=== PATIENT | female | born 1940 | race Hispanic/Latino ===

== ENCOUNTER 2016-06-04 19:33 | Emergency (ER) | payer MEDICARE ==
[2016-06-04] MEDS ORDERED: TORADOL IV ONE (19:57)
[2016-06-04] MEDS ORDERED: MORPHINE IV ONE (19:57)
[2016-06-04] MEDS ORDERED: NACL 0.9% 1000 ML 1,000 ML IV ONE (19:57)
[2016-06-04 20:46] LABS: Basophils % (Auto) 0.8 % (0.0-1.8); Eosinophils % (Auto) 1.2 % (0.0-4.3); Hemoglobin 13.7 gm/dl (10.1-14.3); Mean Corpuscular HGB Conc 33 % (30-34); Mean Corpuscular Hemoglobin 32 pg (28-32); Mean Corpuscular Volume 97 fl (79-97); Platelet Count 194 K/mm3 (140-440); Red Blood Count 4.25 M/mm3 (3.65-5.03); Red Cell Distribution Width 14.6 % (13.2-15.2)
[2016-06-04 21:03] LABS: INR 1.07 (0.87-1.13)
[2016-06-04 21:11] LABS: Alanine Aminotransferase 11 units/L (7-56); Albumin/Globulin Ratio 0.9 %; Alkaline Phosphatase 82 units/L (35-129); Anion Gap 15 mmol/L; BUN/Creatinine Ratio 22.22; Bilirubin,Total 0.7 mg/dL (0.1-1.2); Blood Urea Nitrogen 20 mg/dL (7-17); Calcium 9.2 mg/dL (8.4-10.2); Carbon Dioxide 26 mmol/L (22-30); Chloride 99.9 mmol/L (98-107); Creatine Kinase 58 units/L (30-135); Glucose 91 mg/dL (65-100); Potassium 4.5 mmol/L (3.6-5.0); Sodium 136 mmol/L (137-145); Total Protein 6.4 g/dL (6.3-8.2)
--- NOTE | 2016-06-04 22:21 | Cat Scan Report ---
FINAL REPORT PROCEDURE: CT LOWER EXTREMITY RT WO CON TECHNIQUE: Computerized axial tomography of the right hip was performed without contrast. HISTORY: hip pain COMPARISON: No prior studies are available for comparison. FINDINGS: There are severe osteoarthritic changes of the right hip joint. There is complete joint space loss superiorly. Subarticular cyst formation is noted of the femoral head and acetabulum. Osteophytes project off the femoral head. No acute fracture or joint dislocation is identified. IMPRESSION: No acute fracture is seen. Severe right hip joint osteoarthritis
--- NOTE | 2016-06-04 22:49 | Emergency Department Report ---
ED Extremity Problem HPI - General Chief complaint: Extremity Problem,Nontraumatic Stated complaint: RT LEG PAIN Time Seen by Provider: 06/04/16 19:41 Source: patient, EMS Mode of arrival: Stretcher Limitations: Physical Limitation - History of Present Illness MD Complaint: extremity pain, joint paint Onset/Timin -: Gradual, year(s) Location: right, lower extremity History of Same: Yes -: Yes arthralgia, No fever, No associated dyspnea, No associated chest pain Radiation: none Severity scale (0 -10): 7 Quality: aching, sharp Consistency: constant Improves with: nothing Worsens with: weight bearing, walking, exertion, palpation Associated Symptoms: arthralgias. denies: chest pain, shortness of breath, myalgias - Related Data Previous Rx's Medication Instructions Recorded Last Taken Type ALPRAZolam [Xanax TAB] 0.25 mg PO Q8H PRN #90 tablet 05/06/14 Unknown Rx Duloxetine HCl [DULoxetine] 30 mg PO DAILY #30 capsule. 05/06/14 Unknown Rx Metoprolol [Lopressor TAB] 12.5 mg PO BID #60 tablet 05/06/14 Unknown Rx Pantoprazole [Protonix TAB] 40 mg PO DAILY #30 tablet 05/06/14 Unknown Rx Prednisone [predniSONE] 2 mg PO QDAY #60 tablet 05/06/14 Unknown Rx Verapamil ER [Calan SR] 240 mg PO DAILY #30 tablet 05/06/14 Unknown Rx traMADol [Ultram 50 MG tab] 50 mg PO Q6H PRN #60 tablet 05/06/14 Unknown Rx Diclofenac Sodium 75 mg PO BID #30 tablet. 06/04/16 Unknown Rx HYDROcodone/ACETAMINOPHEN [Vicodin 1 each PO HS #15 tablet 06/04/16 Unknown Rx HP 10-300 mg TAB] Allergies Allergy/AdvReac Type Severity Reaction Status Date / Time codeine Allergy Nausea Verified 11/23/13 07:18 ED Review of Systems ROS: Stated complaint: RT LEG PAIN Other details as noted in HPI Constitutional: denies: chills, fever Eyes: denies: eye pain, eye discharge, vision change ENT: denies: ear pain, throat pain Respiratory: denies: cough, shortness of breath, wheezing Cardiovascular: denies: chest pain, palpitations Endocrine: no symptoms reported Gastrointestinal: denies: abdominal pain, nausea, diarrhea Genitourinary: denies: urgency, dysuria, discharge Musculoskeletal: denies: back pain, joint swelling, arthralgia Skin: denies: rash, lesions Neurological: denies: headache, weakness, paresthesias Psychiatric: denies: anxiety, depression Hematological/Lymphatic: denies: easy bleeding, easy bruising ED Past Medical Hx - Past Medical History Previous Medical History?: Yes Hx Hypertension: Yes Hx CVA: Yes Hx Arthritis: Yes (chronic lower extremity pain) Hx Psychiatric Treatment: Yes (depression, anxiety) Hx COPD: Yes Hx HIV: No Additional medical history: morbid obesity - Surgical History Past Surgical History?: Yes Additional Surgical History: bilateral knee replacement - Social History Smoking Status: Never Smoker Substance Use Type: None - Medications Home Medications: Home Medications Medication Instructions Recorded Confirmed Last Taken Type ALPRAZolam [Xanax TAB] 0.25 mg PO Q8H PRN #90 tablet 05/06/14 Unknown Rx Duloxetine HCl [DULoxetine] 30 mg PO DAILY #30 capsule. 05/06/14 Unknown Rx Metoprolol [Lopressor TAB] 12.5 mg PO BID #60 tablet 05/06/14 Unknown Rx Pantoprazole [Protonix TAB] 40 mg PO DAILY #30 tablet 05/06/14 Unknown Rx Prednisone [predniSONE] 2 mg PO QDAY #60 tablet 05/06/14 Unknown Rx Verapamil ER [Calan SR] 240 mg PO DAILY #30 tablet 05/06/14 Unknown Rx traMADol [Ultram 50 MG tab] 50 mg PO Q6H PRN #60 tablet 05/06/14 Unknown Rx Diclofenac Sodium 75 mg PO BID #30 tablet. 06/04/16 Unknown Rx HYDROcodone/ACETAMINOPHEN [Vicodin 1 each PO HS #15 tablet 06/04/16 Unknown Rx HP 10-300 mg TAB] ED Physical Exam - General Limitations: Physical Limitation General appearance: alert, in no apparent distress - Head Head exam: Present: atraumatic, normocephalic - Eye Eye exam: Present: normal appearance - ENT ENT exam: Present: mucous membranes moist - Neck Neck exam: Present: normal inspection - Respiratory Respiratory exam: Present: normal lung sounds bilaterally. Absent: respiratory distress - Cardiovascular Cardiovascular Exam: Present: regular rate, normal rhythm. Absent: systolic murmur, diastolic murmur, rubs, gallop - GI/Abdominal GI/Abdominal exam: Present: soft, normal bowel sounds - Extremities Exam Extremities exam: Present: normal inspection, tenderness (left hip / tender to palaption , decrease rom due to pain) - Back Exam Back exam: Present: normal inspection - Neurological Exam Neurological exam: Present: alert, oriented X3 - Psychiatric Psychiatric exam: Present: normal affect, normal mood - Skin Skin exam: Present: warm, dry, intact, normal color. Absent: rash ED Course Vital Signs 06/04/16 06/04/16 06/04/16 19:41 19:46 19:48 Temperature 98.1 F Pulse Rate 75 77 Respiratory 11 L 20 Rate Blood Pressure 144/121 144/121 177/121 Blood Pressure 177/121 [Right] O2 Sat by Pulse 97 96 Oximetry 06/04/16 06/04/16 06/04/16 19:50 19:51 19:56 Temperature 98 F Pulse Rate 72 82 70 Respiratory 15 18 Rate Blood Pressure 144/121 169/87 169/87 Blood Pressure [Right] O2 Sat by Pulse 98 98 96 Oximetry 06/04/16 06/04/16 06/04/16 20:00 20:02 22:31 Temperature Pulse Rate 70 Respiratory 10 L 20 20 Rate Blood Pressure 169/87 Blood Pressure [Right] O2 Sat by Pulse 96 96 Oximetry ED Medical Decision Making - Lab Data Result diagrams: 06/04/16 20:27 06/04/16 20:27 - Radiology Data Radiology results: report reviewed, image reviewed - Medical Decision Making Patient doing well, ct of right hip with sevre OA, no fractures, has appointment with ortho next week , neurovasc intact , able to bear weight with assistance . Offered admission but rather wants to go home, Critical care attestation.: If time is entered above; I have spent that time in minutes in the direct care of this critically ill patient, excluding procedure time. ED Disposition Clinical Impression: Morbid obesity with BMI of 45.0-49.9, adult Disposition: DISCHARGED TO HOME OR SELFCARE Is pt being admited?: No Does the pt Need Aspirin: No Condition: Good Instructions: Osteoarthritis (ED), Arthralgia (ED) Prescriptions: Diclofenac Sodium 75 mg PO BID #30 tablet. HYDROcodone/ACETAMINOPHEN [Vicodin HP 10-300 mg TAB] 1 each PO HS #15 tablet Referrals: PRIMARY CARE, [Primary Care Provider] - 3-5 Days Time of Disposition: 22:51
[2016-06-05 04:34] VITALS: BP 149/94
== END 2016-06-05 04:41 | disposition home or self-care (01) ==
LOC: ED 19:33
DX: E66.01 Morbid (severe) obesity due to excess calories (principal); I10 Essential (primary) hypertension; F32.9 Major depressive disorder, single episode, unspecified; F41.9 Anxiety disorder, unspecified; I63.9 Cerebral infarction, unspecified; J44.9 Chronic obstructive pulmonary disease, unspecified; Z68.42 Body mass index [BMI] 45.0-49.9, adult; Z88.5 Allergy status to narcotic agent
CPT/HCPCS: 36415; 73700; 80053; 82550; 85025; 85610; 96361; 96374; 96375; 99284; J1885; J2270; J7030

== ENCOUNTER 2016-10-11 21:13 | Emergency (ER) | payer MEDICARE ==
[2016-10-12] MEDS ORDERED: ANTIVERT PO ONE (01:11)
[2016-10-12] MEDS ORDERED: NACL 0.9% 1000 ML 1,000 ML IV ONE (01:13)
--- NOTE | 2016-10-12 01:17 | Emergency Department Report ---
HPI - General Chief Complaint: Altered Mental Status Time Seen by Provider: 10/12/16 01:10 - HPI HPI: Patient was brought to ED with dizziness, not feeling well, weakness and burning in sensation. Daughter stated patient of been sleeping more so today than usual. Patient also did not have an appetite today, therefore did not eat. Patient however denies chest pain, shortness of breath. Patient states that she feels like the room is spinning. She denies fever, alleviating or exacerbating factors. ED Past Medical Hx - Past Medical History Hx Hypertension: Yes Hx CVA: Yes Hx Arthritis: Yes Hx Psychiatric Treatment: Yes (depression, anxiety) Hx COPD: Yes Hx HIV: No Additional medical history: morbid obesity , atrial fibrillation - Surgical History Additional Surgical History: bilateral knee replacement - Social History Smoking Status: Unknown if ever smoked Substance Use Type: None - Medications Home Medications: Home Medications Medication Instructions Recorded Confirmed Last Taken Type Prednisone [predniSONE] 2 mg PO QDAY #60 tablet 05/06/14 07/05/16 2 Days Ago Rx traMADol [Ultram 50 MG tab] 50 mg PO Q6H PRN #60 tablet 05/06/14 07/05/16 2 Days Ago Rx Diclofenac Sodium 75 mg PO BID #30 tablet. 06/04/16 07/05/16 2 Days Ago Rx ALPRAZolam [Xanax TAB] 0.25 mg PO Q8H PRN #90 tablet 07/05/16 Unknown Rx Cefuroxime Axetil [Ceftin] 500 mg PO Q12H #14 tablet 07/05/16 Unknown Rx Duloxetine HCl [DULoxetine] 30 mg PO DAILY #30 capsule. 07/05/16 Unknown Rx HYDROcodone/ACETAMINOPHEN [Vicodin 1 each PO HS #15 tablet 07/05/16 Unknown Rx HP 10-300 mg TAB] Metoprolol [Lopressor TAB] 12.5 mg PO BID #60 tablet 07/05/16 Unknown Rx Pantoprazole [Protonix TAB] 40 mg PO DAILY #30 tablet 07/05/16 Unknown Rx Verapamil ER [Calan SR] 240 mg PO DAILY #30 tablet 07/05/16 Unknown Rx Cephalexin [Keflex] 500 mg PO BID #20 capsule 10/12/16 Unknown Rx ED Review of Systems ROS: Stated complaint: DIZZINESS/NAUSEA/EMESIS Other details as noted in HPI Comment: All other systems reviewed and negative Constitutional: no symptoms reported Neurological: weakness, confusion, other (dizziness) Physical Exam - Physical Exam Vital Signs: Vital Signs 10/11/16 22:16 Temperature 98.2 F Pulse Rate 55 L Respiratory 20 Rate Blood Pressure 110/89 O2 Sat by Pulse 98 Oximetry Physical Exam: - General Limitations: No Limitations General appearance: alert, in no apparent distress - Head Head exam: Present: atraumatic, normocephalic - Eye Eye exam: Present: normal appearance, EOMI. Absent: nystagmus - ENT ENT exam: Present: normal exam, normal orophraynx, mucous membranes moist, normal external ear exam - Neck Neck exam: Present: normal inspection, full ROM. Absent: tenderness, meningismus - Respiratory Respiratory exam: Present: normal lung sounds bilaterally. Absent: respiratory distress, wheezes, rales, rhonchi, stridor, chest wall tenderness, accessory muscle use, decreased breath sounds, prolonged expiratory - Cardiovascular Cardiovascular Exam: Present: regular rate, normal rhythm, normal heart sounds. Absent: bradycardia, tachycardia, irregular rhythm, systolic murmur, diastolic murmur, rubs, gallop - GI/Abdominal GI/Abdominal exam: Present: soft, normal bowel sounds. Absent: distended, tenderness, guarding, rebound, rigid, pulsatile mass - Rectal Rectal exam: Present: deferred - Extremities Exam Extremities exam: Present: - Back Exam Back exam: Present: normal inspection, full ROM. Absent: tenderness, CVA tenderness (R), CVA tenderness (L), muscle spasm, paraspinal tenderness, vertebral tenderness - Neurological Exam Neurological exam: Present: alert, oriented X3, normal gait, other (Extraocular movements intact. Tongue midline. No facial droop. Facial sensation intact to light touch in the V1, V2, V3 distribution bilaterally. 5 and 5 strength in 4 extremities.. Sensation is intact to light touch in 4 extremities.). Absent : motor sensory deficit - Psychiatric Psychiatric exam: Present: Normal affect - Skin Skin exam: Present: warm, dry, intact, normal color. Absent: rash ED Course Vital Signs 10/11/16 22:16 Temperature 98.2 F Pulse Rate 55 L Respiratory 20 Rate Blood Pressure 110/89 O2 Sat by Pulse 98 Oximetry ED Medical Decision Making - Lab Data Result diagrams: 10/12/16 02:30 10/12/16 02:30 Critical care attestation.: If time is entered above; I have spent that time in minutes in the direct care of this critically ill patient, excluding procedure time. ED Disposition Clinical Impression: UTI (urinary tract infection) Disposition: TO HOME OR SELFCARE Is pt being admited?: No Does the pt Need Aspirin: No Condition: Stable Prescriptions: Cephalexin [Keflex] 500 mg PO BID #20 capsule Referrals: PRIMARY CARE, [Primary Care Provider] - 3-5 Days
--- NOTE | 2016-10-12 02:06 | Cat Scan Report ---
FINAL REPORT PROCEDURE: CT HEAD/BRAIN WO CON TECHNIQUE: Computerized tomography of the head was performed without contrast material. HISTORY: ams COMPARISON: No prior studies are available for comparison. FINDINGS: Skull and scalp: Normal. Paranasal sinuses: Normal. Ventricles and subarachnoid spaces: Normal. Cerebrum: No evidence of hemorrhage, acute infarction or mass. Minimal atrophy and slight periventricular deep white matter changes.. Cerebellum and brainstem: No evidence of hemorrhage, acute infarction or mass. Vasculature: Normal. Comments: None. IMPRESSION: There is no evidence of an acute intracranial process. There is minimal atrophy and slight periventricular deep white matter changes.
[2016-10-12 02:47] LABS: Basophils % (Auto) 0.8 % (0.0-1.8); Eosinophils % (Auto) 0.6 % (0.0-4.3); Hematocrit 39.6 % (30.3-42.9); Hemoglobin 13.4 gm/dl (10.1-14.3); Mean Corpuscular HGB Conc 34 % (30-34); Mean Corpuscular Hemoglobin 32 pg (28-32); Mean Corpuscular Volume 94 fl (79-97); Platelet Count 218 K/mm3 (140-440); White Blood Count 10.1 K/mm3 (4.5-11.0)
[2016-10-12 02:58] LABS: Partial Thromboplastin Time < 20.0 Sec. (24.2-36.6)
[2016-10-12 03:02] LABS: INR 0.89 (0.87-1.13)
[2016-10-12 03:08] LABS: Alanine Aminotransferase 11 units/L (7-56); Albumin 3.7 g/dL (3.9-5); Alkaline Phosphatase 93 units/L (35-129); Anion Gap 22 mmol/L; Blood Urea Nitrogen 30 mg/dL (7-17); Calcium 9.4 mg/dL (8.4-10.2); Carbon Dioxide 20 mmol/L (22-30); Glucose 112 mg/dL (65-100); Potassium 4.6 mmol/L (3.6-5.0); Sodium 143 mmol/L (137-145); Total Protein 7.4 g/dL (6.3-8.2)
[2016-10-12] MEDS ORDERED: ROCEPHIN/NS 2 GM/100 ML 2 GM/100 ML BAG IV ONE (05:14)
[2016-10-12] MEDS ORDERED: NORCO 10/325 PO ONE ×2 (05:29→13:28)
[2016-10-12] MEDS ORDERED: MOTRIN PO ONE (05:29)
[2016-10-12 05:38] LABS: Bacteria,Urine 2+ /HPF (Negative); Bilirubin,Urine NEG (Negative); Blood,Urine SM (Negative); Ketones,Urine TR mg/dL (Negative); Leukocyte Esterase,Urine LG (Negative); Mucus,Urine 2+ /HPF; Nitrite,Urine POS (Negative); Urobilinogen,Urine < 2.0 mg/dL (<2.0)
[2016-10-12 05:58] LABS: WBC,Urine > 182.0 /HPF (0.0-6.0)
--- NOTE | 2016-10-12 07:22 | XRay Report ---
AP CHEST: HISTORY: chest pain Mild cardiomegaly is unchanged since 05/02/14. The pulmonary vascularity is within normal limits. The lungs are clear. No evidence for pneumonia, CHF or pneumothorax. The bony structures are grossly intact. IMPRESSION: Mild cardiomegaly. Lungs clear.
[2016-10-12] MEDS ORDERED: NORCO 10/325 ONE (13:16)
[2016-10-12 13:42] VITALS: BP 168/89
== END 2016-10-12 13:43 | disposition home or self-care (01) ==
LOC: ED 21:13
DX: N39.0 Urinary tract infection, site not specified (principal); I10 Essential (primary) hypertension; F32.9 Major depressive disorder, single episode, unspecified; F41.9 Anxiety disorder, unspecified; J44.9 Chronic obstructive pulmonary disease, unspecified; E66.01 Morbid (severe) obesity due to excess calories; Z86.73 Personal history of transient ischemic attack (TIA), and cerebral infarction without residual deficits
CPT/HCPCS: 36415; 51702; 70450; 71010; 80053; 81001; 83880; 84484; 85025; 85610; 85730; 96361; 96365; 99284; J0696; J7030

== ENCOUNTER 2018-03-06 23:20 | Inpatient (IN) | payer MEDICARE ==
[2018-03-06] MEDS ORDERED: NACL 0.9% 1000 ML 1,000 ML IV ONE (23:32)
[2018-03-06] MEDS ORDERED: ANTIVERT PO ONE (23:32)
[2018-03-06] MEDS ORDERED: PEPCID IV ONE (23:32)
[2018-03-06] MEDS ORDERED: ZOFRAN IV ONE (23:32)
[2018-03-07 00:16] LABS: Basophils # (Auto) 0.1 K/mm3 (0.0-0.1); Basophils % (Auto) 0.7 % (0.0-1.8); Eosinophils # (Auto) 0.1 K/mm3 (0.0-0.4); Eosinophils % (Auto) 1.2 % (0.0-4.3); Hematocrit 37.7 % (30.3-42.9); Hemoglobin 12.6 gm/dl (10.1-14.3); Lymphocytes # (Auto) 1.4 K/mm3 (1.2-5.4); Lymphocytes % (Auto) 11.8 % (13.4-35.0); Mean Corpuscular HGB Conc 33 % (30-34); Mean Corpuscular Volume 98 fl (79-97); Monocytes # (Auto) 0.9 K/mm3 (0.0-0.8); Monocytes % (Auto) 7.3 % (0.0-7.3); Platelet Count 271 K/mm3 (140-440); Red Blood Count 3.87 M/mm3 (3.65-5.03); Red Cell Distribution Width 14.5 % (13.2-15.2)
--- NOTE | 2018-03-07 01:06 | Cat Scan Report ---
FINAL REPORT EXAM: CT HEAD/BRAIN WO CON HISTORY: dizziness and headache COMPARISON: CT of the head from September 2016. TECHNIQUE: Axial images obtained skull base through vertex. FINDINGS: No acute intracranial hemorrhage, midline shift or pathologic extra axial fluid collection. Ventricle s and cisterns are normal in size and configuration for the patient's age. Stable mild chronic small vessel ischemic disease. Jeffery-white differentiation preserved. Calvarium grossly intact. Ocular globe s are grossly unremarkable. Visualized para-nasal sinuses and mastoid air cells are clear. Mild calci fied plaque along the carotid siphons. IMPRESSION: No grossly acute intracranial abnormality. Stable mild chronic small vessel ischemic disease.
--- NOTE | 2018-03-07 01:38 | Emergency Department Report ---
ED General Adult HPI - General Chief complaint: Weakness Stated complaint: DIZZINESS/HEADACHE Time Seen by Provider: 03/06/18 23:28 Source: patient Mode of arrival: Stretcher Limitations: Physical Limitation - History of Present Illness Initial comments: Patient is a 77-year-old female who is presenting with 1 week of progressively worsening headache with dizziness. Patient states that when she opens her eyes she is very dizzy and the dizziness is causing disorientation. Patient states symptoms are associated with nausea and some epigastric discomfort. Patient denies any fever or neck stiffness off congestion at this time. Patient states has been no dysuria or urinary frequency. Patient was recently hospitalized for leg swelling and was found that the patient has cellulitis but also had a intermediate risk for PE according to her VQ scan. Patient has a history of atrial fibrillation and was placed on Eliquis Severity scale (0 -10): 7 Quality: aching Associated Symptoms: malaise, weakness. denies: chest pain, cough, diaphoresis, shortness of breath, syncope - Related Data Home Medications Medication Instructions Recorded Confirmed Last Taken AtorvaSTATin [Lipitor] 20 mg PO QHS 03/07/18 03/07/18 Unknown Baclofen [Lioresal] 10 mg PO BID 03/07/18 03/07/18 Unknown Ferrous Sulfate [Feosol 325 MG tab] 325 mg PO QDAY 03/07/18 03/07/18 Unknown traZODone [Desyrel] 100 mg PO QHS 03/07/18 03/07/18 Unknown Previous Rx's Medication Instructions Recorded Last Taken Type Apixaban [Eliquis] 5 mg PO Q12HR #60 tablet 02/24/18 Unknown Rx Verapamil [Calan] 80 mg PO Q8HR tablet 03/14/18 Unknown Rx clonazePAM [KlonoPIN] 1 mg PO BID PRN #12 tablet 03/14/18 Unknown Rx diphenhydrAMINE [Benadryl CAP] 25 mg PO Q6H PRN capsule 03/14/18 Unknown Rx oxyCODONE /ACETAMINOPHEN [Percocet 2 tab PO Q6H PRN #12 tablet 03/14/18 Unknown Rx 5/325 mg] Allergies Allergy/AdvReac Type Severity Reaction Status Date / Time codeine Allergy Nausea Verified 11/23/13 07:18 ED Review of Systems ROS: Stated complaint: DIZZINESS/HEADACHE Other details as noted in HPI Comment: All other systems reviewed and negative ED Past Medical Hx - Past Medical History Previous Medical History?: Yes Hx Hypertension: Yes Hx CVA: Yes Hx Congestive Heart Failure: Yes Hx Arthritis: Yes Hx Psychiatric Treatment: Yes (depression, anxiety) Hx COPD: Yes Additional medical history: morbid obesity , atrial fibrillation - Surgical History Past Surgical History?: Yes Additional Surgical History: bilateral knee replacement - Social History Smoking Status: Never Smoker Substance Use Type: Prescribed - Medications Home Medications: Home Medications Medication Instructions Recorded Confirmed Last Taken Type Apixaban [Eliquis] 5 mg PO Q12HR #60 tablet 02/24/18 03/07/18 Unknown Rx AtorvaSTATin [Lipitor] 20 mg PO QHS 03/07/18 03/07/18 Unknown History Baclofen [Lioresal] 10 mg PO BID 03/07/18 03/07/18 Unknown History Ferrous Sulfate [Feosol 325 MG tab] 325 mg PO QDAY 03/07/18 03/07/18 Unknown History traZODone [Desyrel] 100 mg PO QHS 03/07/18 03/07/18 Unknown History Verapamil [Calan] 80 mg PO Q8HR tablet 03/14/18 Unknown Rx clonazePAM [KlonoPIN] 1 mg PO BID PRN #12 tablet 03/14/18 Unknown Rx diphenhydrAMINE [Benadryl CAP] 25 mg PO Q6H PRN capsule 03/14/18 Unknown Rx oxyCODONE /ACETAMINOPHEN [Percocet 2 tab PO Q6H PRN #12 tablet 03/14/18 Unknown Rx 5/325 mg] ED Physical Exam - General Limitations: Physical Limitation General appearance: alert, in distress, other (she states she is unable to open her eyes without her symptoms worsening) - Head Head exam: Present: atraumatic, normocephalic - Eye Eye exam: Present: normal appearance - ENT ENT exam: Present: mucous membranes moist - Neck Neck exam: Present: normal inspection - Respiratory Respiratory exam: Present: normal lung sounds bilaterally. Absent: respiratory distress, wheezes, rales, rhonchi - Cardiovascular Cardiovascular Exam: Present: regular rate, normal rhythm. Absent: systolic murmur, diastolic murmur, rubs, gallop - GI/Abdominal GI/Abdominal exam: Present: soft, normal bowel sounds. Absent: distended, tenderness (patient states there is no reproducible epigastric discomfort however she is holding her abdomen stating that she is in pain), guarding, rebound, rigid - Extremities Exam Extremities exam: Present: normal inspection - Back Exam Back exam: Present: normal inspection - Neurological Exam Neurological exam: Present: alert, oriented X3 - Psychiatric Psychiatric exam: Present: normal affect, normal mood - Skin Skin exam: Present: warm, dry, intact, normal color. Absent: rash ED Course Vital Signs 03/07/18 03/07/18 03/07/18 00:18 01:46 02:30 Temperature 97.7 F Pulse Rate 77 Respiratory 12 Rate Blood Pressure 183/112 178/109 183/112 Blood Pressure 183/112 [Left] O2 Sat by Pulse 98 97 94 Oximetry 03/07/18 03/07/18 03/07/18 03:52 04:00 04:05 Temperature Pulse Rate 90 86 Respiratory 12 Rate Blood Pressure 170/76 200/108 200/108 Blood Pressure [Left] O2 Sat by Pulse 99 97 Oximetry 03/07/18 03/07/18 03/07/18 04:16 04:33 04:46 Temperature Pulse Rate 105 H 105 H 97 H Respiratory 15 17 Rate Blood Pressure 199/114 184/96 191/102 Blood Pressure [Left] O2 Sat by Pulse 99 98 Oximetry 03/07/18 03/07/18 03/07/18 05:00 05:16 05:18 Temperature Pulse Rate 108 H 109 H Respiratory 15 20 Rate Blood Pressure 151/96 150/72 Blood Pressure [Left] O2 Sat by Pulse 98 99 Oximetry 03/07/18 03/07/18 03/07/18 05:46 05:48 06:00 Temperature Pulse Rate 89 95 H Respiratory 12 18 Rate Blood Pressure 136/72 129/60 Blood Pressure [Left] O2 Sat by Pulse 95 95 Oximetry 03/07/18 03/07/18 03/07/18 06:30 07:00 07:10 Temperature Pulse Rate 90 94 H 92 H Respiratory 11 L 11 L 13 Rate Blood Pressure 125/73 135/63 150/85 Blood Pressure [Left] O2 Sat by Pulse 96 Oximetry 03/07/18 03/07/18 03/07/18 08:47 09:23 10:00 Temperature 97.8 F Pulse Rate 115 H Respiratory 18 16 Rate Blood Pressure Blood Pressure 155/92 [Left] O2 Sat by Pulse 97 Oximetry - Reevaluation(s) Reevaluation #2: 03/07/18 01:[address] of the head without contrast shows no acute process. Patient has some chronic microvascular changes. Patient was difficult stick for IV was established. Patient given meds at this time. Patient will have laboratory st udies reviewed. Hopefully the patient's renal function will be within normal limits as patient needs a CT angiogram of the head and neck to rule out a posterior CVA. Patient also have a CT of the abdomen and pelvis ordered assist the patient now is complaining of some epigastric discomfort as well. Patient will need a urinary straight cath to collect her urine. Patient will be signed out to Dr. Gutierrez for the continuation of the patient's medical care. ED Medical Decision Making - Lab Data Result diagrams: 03/14/18 04:59 03/14/18 04:59 Critical care attestation.: If time is entered above; I have spent that time in minutes in the direct care of this critically ill patient, excluding procedure time. ED Disposition Clinical Impression: Headache, Vertigo Disposition: [id number] OP ADMIT IP TO THIS HOSP Is pt being admited?: Yes Condition: Stable
[2018-03-07 02:04] LABS: Bilirubin,Urine NEG (Negative); Blood,Urine NEG (Negative); Color,Urine Yellow (Yellow); Hyaline Casts,Urine 1 /LPF; Mucus,Urine FEW /HPF
[2018-03-07] MEDS ORDERED: APRESOLINE IV ONE (04:04)
--- NOTE | 2018-03-07 04:06 | Cat Scan Report ---
FINAL REPORT PROCEDURE: CT ABDOMEN PELVIS W CON TECHNIQUE: Computerized axial tomography of the abdomen and pelvis was performed after the IV inject ion of iodinated nonionic contrast. HISTORY: upper abd pain COMPARISON: No prior studies are available for comparison. FINDINGS: Visualized lower thorax: No significant abnormality. Liver: Normal size and attenuation. Spleen: Normal size and attenuation. Gallbladder and biliary system: Normal. Pancreas: Normal. Adrenals: Normal. Kidneys: Normal. GI tract: There are diverticula of the sigmoid left colon. There is no diverticulitis, colitis, obstr uction or mass. The appendix is normal.. Lymph nodes and mesentery: Normal. Vasculature: Normal. Bladder: Normal. Reproductive organs: Uterus is unremarkable.. Peritoneum: There is no ascites or free air, abscess or adenopathy.. Musculoskeletal structures: No significant abnormality. Other: None. IMPRESSION: There are diverticula of the sigmoid left colon. There is no diverticulitis, colitis, obstruction or mass. The appendix is normal.. There is no ascites or free air, abscess or adenopathy..
[2018-03-07] MEDS ORDERED: APRESOLINE ONE (04:08)
--- NOTE | 2018-03-07 04:10 | Cat Scan Report ---
FINAL REPORT PROCEDURE: CT ANGIO HEAD TECHNIQUE: Computerized tomographic angiography of the head was performed after the IV injection of iodinated nonionic contrast including image processing. The image data was postprocessed using 2-dime nsional multiplanar reformatted (MPR) and 3-dimensional (MIP and/or volume rendered) techniques. HISTORY: vertigo symptoms COMPARISON: CT of the head dated 03/06/2018 FINDINGS: Cerebrum: No evidence of hemorrhage, acute ischemia or mass. Cerebellum: No evidence of hemorrhage, acute ischemia or mass. Subarachnoid spaces and ventricles: Normal. Intracranial vessels: Carotid siphon: Normal. Anterior cerebral: Normal. Middle cerebral: Normal. Posterior cerebral:There is origin of the left posterior cerebral artery which is a normal vari ation. Vertebral arteries including basilar: Normal. Aneurysms: None. Dural sinuses: Normal. IMPRESSION: There is no intracranial arterial stenosis, occlusion or aneurysm.
--- NOTE | 2018-03-07 04:12 | Cat Scan Report ---
FINAL REPORT PROCEDURE: CT ANGIO NECK TECHNIQUE: Computerized tomographic angiography of the neck was performed after the IV injection of iodinated nonionic contrast including image processing. The image data was postprocessed using 2-dime nsional multiplanar reformatted (MPR) and 3-dimensional (MIP and/or volume rendered) techniques. HISTORY: vertigo symptoms COMPARISON: No prior studies are available for comparison. Note: Assessment of carotid artery stenosis is based on measurement of the distal internal carotid a rtery diameter as the denominator for stenosis calculations and the [place] Symptomatic Caroti d Endarterectomy Trial (NASCET) stenosis criteria . CPT 3100F FINDINGS: Sinuses: Normal . Non vascular cervical structures: No significant abnormality . Aortic arch: Normal . Right carotid artery: There is calcified plaque at the right carotid bulb without stenosis.. Left carotid artery: There is calcified plaque at the left carotid bulb without stenosis.. Vertebral arteries: The right vertebral artery is dominant. There is no occlusion.. IMPRESSION: There is no arterial stenosis or occlusion or dissection. The there is calcified plaque at the caroti d bulbs bilaterally.
[2018-03-07] MEDS ORDERED: NITROSTAT SL ONE ×2 (04:31→04:34)
[2018-03-07] MEDS ORDERED: MORPHINE IV ONE (04:56)
[2018-03-07] MEDS ORDERED: ZOFRAN IV ONE (04:56)
--- NOTE | 2018-03-07 05:22 | XRay Report ---
FINAL REPORT PROCEDURE: XR CHEST 1V AP TECHNIQUE: Chest radiograph anteroposterior view. CPT 28008 HISTORY: CP COMPARISON: No prior studies are available for comparison. FINDINGS: Heart: Heart is enlarged Mediastinum/Vessels: Normal. Lungs/Pleural space: Lungs are expanded. There are no infiltrates, effusions or pneumothoraces.. Bony thorax: No acute osseous abnormality. Life support devices: None. IMPRESSION: Heart is enlarged Lungs are expanded. There are no infiltrates, effusions or pneumothoraces.. .
--- NOTE | 2018-03-07 05:58 | Emergency Department Report ---
Blank Doc - Documentation Documentation: I was asked by Dr. Trotter to follow-up on the CT angiography of the head and n sharon, as well as CT of the abdomen and pelvis, for this patient and then assist with the disposition. The patient was originally here for headache and dizziness. When she got back from the CT of the head, she started complaining of some abdominal pain. CT angiography of the head and neck did not show any thrombus, occlusion or any other acute process. CT of the abdomen and pelvis shows some diverticula but no signs of any diverticulitis. As soon as the patient returned from the CT angiography, she began complaining of chest pain. An EKG was done that shows the patient in A. fib. No signs of ST elevation [place]. First troponin was negative. Serial troponins ordered. The patient will be admitted to the hospital for further evaluation and treatment and was accepted for admission by the hospitalist, Dr. Pineda.
[2018-03-07] MEDS ORDERED: ZOFRAN IV PRN (06:38)
[2018-03-07] MEDS ORDERED: MORPHINE IV PRN (06:43)
--- NOTE | 2018-03-07 08:01 | Vascular Lab Report ---
FINAL REPORT PROCEDURE: VL CAROTID DUPLEX BILAT TECHNIQUE: Duplex Doppler ultrasound of the common, internal and external carotid arteries and the v ertebral arteries was performed bilaterally. Jeffery scale imaging, velocity spectral waveform analysis, and color flow Doppler were employed. CPT 16849 HISTORY: DIZZYNESS WITH PLAQUE IN THE CAROTIDS ON CT NECK COMPARISON: No prior studies are available for comparison. FINDINGS: Note: Measurement of carotid stenosis is based on flow velocity values that correlate with the [place] Symptomatic Carotid Endarterectomy Trial (NASCET) based stenosis criteria using the internal carotid artery diameter as the denominator for stenosis calculation. CPT 3100F RIGHT carotid artery: Velocities: ICA PSV: 46.6 cm/sec ICA End diastolic: 16 cm/sec CCA PSV: 66.3 cm/sec IC/CC ratio: 0.8 1 Plaque/color flow: Mild heterogeneous plaque without significant spectral broadening or abnormal colo r flow. RIGHT vertebral artery: Not identified. LEFT carotid artery: Velocities: ICA PSV: 95.8 cm/sec ICA End diastolic: 31 cm/sec CCA PSV: 72.7 cm/sec IC/CC ratio: 1.3 Plaque/color flow: Mild heterogeneous plaque without significant spectral broadening or abnormal colo r flow. LEFT vertebral artery: Antegrade systolic and diastolic flow. IMPRESSION: 1. RIGHT carotid: No hemodynamically significant (less than 50 percent) internal carotid artery steno sis. 2. LEFT carotid: No hemodynamically significant (less than 50 percent) internal carotid artery stenos is. 3. Vertebral arteries: The right vertebral artery could not be identified. Left vertebral artery is p atent and demonstrates normal antegrade blood flow.
--- NOTE | 2018-03-07 08:23 | History and Physical Report ---
CHIEF COMPLAINT: Chest pain. OTHER COMPLAINTS: Include dizziness, vertigo, and shortness of breath. HISTORY OF PRESENT ILLNESS: The patient is a 77-year-old female presenting with 1 week history of dizziness and headache. The patient is also complaining of vertigo and said that it is associated with nausea and some epigastric abdominal pain. There is no history of fever or chills. Also, there is no history of ringing in the ear and while in the Emergency Room, the patient was investigated for dizziness, vertigo, and then started having chest pain, which is located in the precordial area. PAST MEDICAL HISTORY: Pertinent for hypertension, cerebrovascular accident, congestive heart failure, arthritis, depression, COPD, morbid obesity, and atrial fibrillation on Eliquis. PAST SURGICAL HISTORY: Pertinent for bilateral knee replacement. FAMILY HISTORY: Noncontributory. SOCIAL HISTORY: The patient does not smoke, does not drink alcohol, and does not use illicit drug. MEDICATIONS: The patient is on prednisone 2 mg by mouth daily, tramadol 50 mg by mouth every 6 hours for pain, diclofenac sodium 75 mg by mouth twice daily, Xanax 0.25 mg by mouth every 8 hours, Ceftin 500 mg by mouth every 12 hours, duloxetine 30 mg by mouth daily, Vicodin 10/300 mg 1 by mouth every night as needed for pain, metoprolol (Lopressor) 12.5 mg by mouth twice daily, pantoprazole (Protonix) 40 mg by mouth daily, verapamil 240 mg by mouth daily, Keflex 500 mg by mouth twice daily, Tylenol Arthritis 650 mg by mouth every 6 hours, Vibramycin 100 mg by mouth every 12 hours, nystatin 15 gram topical b.i.d., apixaban (Eliquis) 5 mg by mouth every 12 hours, Keflex 500 mg by mouth every 12 hours. ALLERGIES: THE PATIENT IS ALLERGIC TO CODEINE. REVIEW OF SYSTEMS: CONSTITUTIONAL: There is no fever, no chills, no diaphoresis. HEENT: There is headache, but no sore throat. CARDIOVASCULAR SYSTEM: Chest pain is present. No orthopnea. RESPIRATORY SYSTEM: Shortness of breath is noted. No cough. GASTROINTESTINAL SYSTEM: There is nausea, but no vomiting. Abdominal pain is present. No diarrhea or constipation. NEUROLOGICAL SYSTEM: Dizziness and vertigo present. No altered mental status. MUSCULOSKELETAL SYSTEM: There is no joint pain or swelling. DERMATOLOGICAL SYSTEM: There is no skin rash or itching. GENITOURINARY SYSTEM: There is no dysuria, hematuria or flank pain. Rest of system review is normal. PHYSICAL EXAMINATION: GENERAL: At the time of exam, the patient was found to be lethargic, arousable, and not in active disease. VITAL SIGNS: At the initial time of presentation show temperature of 97.7 degrees Fahrenheit, pulse of 77, respirations 12, blood pressure 183/112, O2 sat of 98% on room air. HEENT: Showed pupils to be equal, round, reactive to light and accommodation. Extraocular muscles are intact. NECK: Supple with no JVD or carotid bruit. CARDIOVASCULAR SYSTEM: Showed normal first and second heart sounds with no gallops or murmur. RESPIRATORY SYSTEM: Show good air entry on both sides of the lungs with no abnormal breath sounds. GASTROINTESTINAL SYSTEM: Show abdomen to be full, soft, nontender with no organomegaly or rigidity. NEUROLOGICAL: Shows no focal deficit. MUSCULOSKELETAL SYSTEM: Show no joint swelling or tenderness. DERMATOLOGICAL SYSTEM: Showing no skin rash. GENITOURINARY SYSTEM: Showing no costovertebral angle tenderness. PERTINENT IMAGING STUDIES: The patient had CT of the head without contrast done that shows no acute intracranial lesion. The patient had CT angiogram of the neck done that shows right carotid plaque. Also, the patient had CT angiogram of the head done and this shows no intracranial arterial stenosis, occlusion or aneurysm. The patient has chest x-ray also done that shows enlarged heart with no other abnormality. LAB RESULTS: The patient's CBC showed elevated white count of 11,700 with normal hemoglobin and normal hematocrit with CBC differential showing elevated segmented neutrophil of 79%. The patient's chemistry showed normal sodium with elevated potassium level of 5.4, elevated chloride level of 108 and low CO2 of 20. The patient's BUN and creatinine showed elevated BUN of 49 with high creatinine of 1.5. The patient's troponin level came back unremarkable. Urinalysis was unremarkable. DIAGNOSES: 1. Chest pain. 2. Dizziness. 3. Hyperkalemia. 4. Acute kidney injury. PLAN: 1. The patient will be admitted to telemetry. 2. The patient will have cardiac enzymes involving troponin, total CK, and CK-MB. Check every 6 hours x 2 more level. 3. The patient will have Nephrology consult with Dr. Keating for acute kidney injury. 4. The patient will be on nitro paste 1 inch to anterior chest wall q.i.d. and will be on sublingual nitroglycerin 0.4 mg every 5 minutes for breakthrough chest pain. 5. The patient will be on IV morphine 2 mg every 3 hours as needed for pain and IV Zofran 4 mg every 8 hours for nausea and vomiting. 6. The patient will be n.p.o. for Lexiscan stress test this morning. 7. The patient will have bilateral carotid Doppler done this morning because of dizziness and finding of plaque on the right carotid in the CT angio of the neck. 8. The patient will be on Tylenol 650 mg by mouth every 4 hours for fever and headache and IV Zofran 4 mg every 8 hours for nausea and vomiting. 9. The patient will be on oxygen by nasal cannula at 2 liters per minute. JOB# [id number] OCN/NTS
[2018-03-07] MEDS ORDERED: LEXISCAN IV ONE ×2 (10:54→10:56)
[2018-03-07] MEDS ORDERED: HumuLIN R IV ONE ×2 (11:35→16:00)
[2018-03-07] MEDS ORDERED: D50W (25GM) Vial IV ONE ×2 (11:35→16:00)
--- NOTE | 2018-03-07 11:42 | Consultation ---
History of Present Illness - Reason for Consult Consult date: 03/07/18 acute renal failure - History of Present Illness patient is a 77 year old female came to the ED for worsening dizziness and weakness, she is a poor historian, no family at bedside, history obtained from chart. CTA head and neck, CT head and carotid Doppler all negative. she was noted to have worsening kidney function since last admission when she was admitted for cellulitits, renal consult was requested for LUIS ENRIQUE Medications and Allergies Allergies Allergy/AdvReac Type Severity Reaction Status Date / Time codeine Allergy Nausea Verified 11/23/13 07:18 Home Medications Medication Instructions Recorded Confirmed Last Taken Type Diclofenac Sodium 75 mg PO BID #30 tablet. 06/04/16 03/07/18 2 Days Ago Rx ~07/03/16 Verapamil ER [Calan SR] 240 mg PO DAILY #30 tablet 07/05/16 03/07/18 Unknown Rx Apixaban [Eliquis] 5 mg PO Q12HR #60 tablet 02/24/18 03/07/18 Unknown Rx AtorvaSTATin [Lipitor] 20 mg PO QHS 03/07/18 03/07/18 Unknown History Baclofen [Lioresal] 10 mg PO BID 03/07/18 03/07/18 Unknown History Ferrous Sulfate [Feosol] 325 mg PO QDAY 03/07/18 03/07/18 Unknown History traZODone [Desyrel] 100 mg PO QHS 03/07/18 03/07/18 Unknown History Active Meds: Active Medications Acetaminophen (Tylenol) 650 mg PO Q4H PRN PRN Reason: Headache Aspirin (Aspirin) 325 mg PO QDAY [facility] Sodium Bicarbonate 75 meq/ (Sodium Chloride) 1,075 mls @ 75 mls/hr IV DIRECT STACI Morphine Sulfate (Morphine) 2 mg IV Q3H PRN PRN Reason: Pain, Moderate (4-6) Nitroglycerin (Nitro-Bid 2%) 1 inch TP QIDNTG STACI; Protocol Ondansetron HCl (Zofran) 4 mg IV Q8H PRN PRN Reason: Nausea And Vomiting Review of Systems ROS unobtainable: due to mental status Exam - Vital Signs Vital signs: Vital Signs Temp Pulse Resp BP Pulse Ox 97.7 F 77 12 183/112 98 03/07/18 00:18 03/07/18 00:18 03/07/18 00:18 03/07/18 00:18 03/07/18 00:18 - General Appearance General appearance: well-developed, well-nourished EENT: ATNC, PERRL, mucous membranes moist Neck: Present: neck supple Respiratory: Clear to Ascultation Heart: regular, S1S2 Gastrointestinal: Present: normoactive bowel sounds. Absent: tenderness, diste nded Integumentary: no rash, warm and dry Neurologic: no focal deficit Musculoskeletal: Present: other (trace pitting edema in BLE) Psychiatric: cooperative Results - Lab Results 03/06/18 23:59 03/06/18 23:59 Most recent lab results Calcium 9.0 mg/dL (8.4-10.2) 03/06/18 23:59 Assessment and Plan Dizziness altered mental status acute renal failure, likely prerenal azotemia hyperkalemia - will start IVF 1/2 NS with NaHCO3 75 meq @ 75 cc/h, CXR negative for pulm edema - IV insulin and D50W ordered for hyperkalemia - renal US ordered - UA and urine lytes, protein and eos ordered - renally dose meds - strict I&O - daily weight Guy Cerna MD [phone]
[2018-03-07] MEDS ORDERED: NACL 0.45% 1000 ML 1,000 ML with SODIUM BICARBONATE 75 MEQ IV SCH (12:00)
--- NOTE | 2018-03-07 12:28 | Consultation ---
History of Present Illness Consult date: 03/07/18 Consult reason: atrial fibrillation History of present illness: The patient is a 77-year-old woman with permanent atrial fibrillation, on rate control strategy and oral anticoagulation with Eliquis. She was recently in this hospital with a transient mild lower extremity edema, and echocardiogram demonstrated mild left ventricle dysfunction with ejection fraction 40-45%. It is also notable, she has had previous extensive cardiac ischemic workup including a cardiac catheterization 4 years ago, that reported normal coronary arteries. She is admitted at this time with transient shortness of breath, cardiac consultation was requested for rapid atrial fibrillation. EKG is atrial fibrillation, somewhat low voltage QRS, nonspecific ST and T-wave changes. No acute ischemia or infarction on the EKG. The internal medicine service consult ordered a thallium stress test which will be reviewed. Past History Past Medical History: atrial fib, hypertension Medications and Allergies Allergies Allergy/AdvReac Type Severity Reaction Status Date / Time codeine Allergy Nausea Verified 11/23/13 07:18 Home Medications Medication Instructions Recorded Confirmed Last Taken Type Diclofenac Sodium 75 mg PO BID #30 tablet. 06/04/16 03/07/18 2 Days Ago Rx ~07/03/16 Verapamil ER [Calan SR] 240 mg PO DAILY #30 tablet 07/05/16 03/07/18 Unknown Rx Apixaban [Eliquis] 5 mg PO Q12HR #60 tablet 02/24/18 03/07/18 Unknown Rx AtorvaSTATin [Lipitor] 20 mg PO QHS 03/07/18 03/07/18 Unknown History Baclofen [Lioresal] 10 mg PO BID 03/07/18 03/07/18 Unknown History Ferrous Sulfate [Feosol] 325 mg PO QDAY 03/07/18 03/07/18 Unknown History traZODone [Desyrel] 100 mg PO QHS 03/07/18 03/07/18 Unknown History Active Meds: Active Medications Acetaminophen (Tylenol) 650 mg PO Q4H PRN PRN Reason: Headache Aspirin (Aspirin) 325 mg PO QDAY ON LICENSE OF [facility] Sodium Bicarbonate 75 meq/ (Sodium Chloride) 1,075 mls @ 75 mls/hr IV DIRECT STACI Morphine Sulfate (Morphine) 2 mg IV Q3H PRN PRN Reason: Pain, Moderate (4-6) Nitroglycerin (Nitro-Bid 2%) 1 inch TP QIDNTG ON LICENSE OF [facility]; Protocol Ondansetron HCl (Zofran) 4 mg IV Q8H PRN PRN Reason: Nausea And Vomiting Review of Systems Cardiovascular: palpitations, rapid/irregular heart beat, edema, shortness of b reath, no chest pain, no orthopnea, no syncope, no lightheadedness Physical Examination Vital Signs Temp Pulse Resp BP Pulse Ox 97.7 F 77 12 183/112 98 03/07/18 00:18 03/07/18 00:18 03/07/18 00:18 03/07/18 00:18 03/07/18 00:18 General appearance: no acute distress HEENT: Positive: PERRL Cardiac: Positive: irregularly irregular Lungs: Positive: Decreased Breath Sounds Neuro: Positive: Grossly Intact Abdomen: Positive: Soft Female genitourinary: deferred Skin: Positive: Clear Extremities: Absent: edema Results 03/06/18 23:59 03/06/18 23:59 CBC 03/06/18 Range/Units 23:59 WBC 11.7 H (4.5-11.0) K/mm3 RBC 3.87 (3.65-5.03) M/mm3 Hgb 12.6 (10.1-14.3) gm/dl Hct 37.7 (30.3-42.9) % Plt Count 271 (140-440) K/mm3 Lymph # 1.4 (1.2-5.4) K/mm3 [place] # 0.9 H (0.0-0.8) K/mm3 Eos # 0.1 (0.0-0.4) K/mm3 Baso # 0.1 (0.0-0.1) K/mm3 Comprehensive Metabolic Panel 03/06/18 Range/Units 23:59 Sodium 144 (137-145) mmol/L Potassium 5.4 H (3.6-5.0) mmol/L Chloride 108.8 H (98-107) mmol/L Carbon Dioxide 20 L (22-30) mmol/L BUN 49 H (7-17) mg/dL Creatinine 1.5 H (0.7-1.2) mg/dL Glucose 104 H (65-100) mg/dL Calcium 9.0 (8.4-10.2) mg/dL EKG interpretations - Telemetry EKG Rhythm: Atrial Fibrillation Assessment and Plan - Patient Problems (1) Atrial fibrillation Current Visit: No Status: Acute Qualifiers: Atrial fibrillation type: persistent Qualified Code(s): I48.1 - Persistent atrial fibrillation Plan to address problem: We will optimize rate control of atrial fibrillation, and continue oral anticoagulation. The stress test ordered by the medical service will be reviewed, although her presentation does not appear consistent with an acute coronary event, more likely a pulmonary etiology versus shortness of breath associated with an enhanced ventricular response to her underlying atrial fibrillation.
[2018-03-07] MEDS: TYLENOL PO PRN ×2 (13:04→22:40)
--- NOTE | 2018-03-07 13:04 | Consultation ---
History of Present Illness Consult date: 03/07/18 Requesting physician: DAVID MONTERROSO Reason for Consult: Headache and dizziness History of present illness: 77 yr old rt. handed female, with hx of hypertension, atrial fibrillation, bilateral knee replacements, presented to ER with complaints of headache and dizziness worsening over the past week. She also noted generalized weakness. She claims that she feels dizzy when bending her head up or down, but not when turning sideways. Headache and neck pain come and go. She sometimes gets nauseated. Lying flat aggravates headache and abdominal pain. She has also been having chest pain this a.m. EKG is stable with chronic afib, no ST or T wave changes. She was admitted 02/21/18 for swelling in the lower extremities. On that admission an echocardiogram revealed EF of 40 to 45%. CT brain is remarkable for small vessel disease. Brain and neck CTAs are unremarkable except for calcified plaque at the carotis bulbs. Daughter states pt. does not ambulate at home. She uses a cane to get short distances to bed, chair and bathroom. She fell several yrs ago and broke her hip. She was supposed to have surgery for this but refused. This and her knee replacements have caused difficulty wih ambulation. Past History Past Medical History: atrial fib, hypertension Past Surgical History: Other (bilateral knee replacements) Social history: lives with family. denies: smoking, alcohol abuse Medications and Allergies Allergies Allergy/AdvReac Type Severity Reaction Status Date / Time codeine Allergy Nausea Verified 11/23/13 07:18 Home Medications Medication Instructions Recorded Confirmed Last Taken Type Diclofenac Sodium 75 mg PO BID #30 tablet. 06/04/16 03/07/18 2 Days Ago Rx ~07/03/16 Verapamil ER [Calan SR] 240 mg PO DAILY #30 tablet 07/05/16 03/07/18 Unknown Rx Apixaban [Eliquis] 5 mg PO Q12HR #60 tablet 02/24/18 03/07/18 Unknown Rx AtorvaSTATin [Lipitor] 20 mg PO QHS 03/07/18 03/07/18 Unknown History Baclofen [Lioresal] 10 mg PO BID 03/07/18 03/07/18 Unknown History Ferrous Sulfate [Feosol] 325 mg PO QDAY 03/07/18 03/07/18 Unknown History traZODone [Desyrel] 100 mg PO QHS 03/07/18 03/07/18 Unknown History Active Meds: Active Medications Acetaminophen (Tylenol) 650 mg PO Q4H PRN PRN Reason: Headache Aspirin (Aspirin) 325 mg PO QDAY [facility] Sodium Bicarbonate 75 meq/ (Sodium Chloride) 1,075 mls @ 75 mls/hr IV DIRECT STACI Morphine Sulfate (Morphine) 2 mg IV Q3H PRN PRN Reason: Pain, Moderate (4-6) Nitroglycerin (Nitro-Bid 2%) 1 inch TP QIDNTG [facility]; Protocol Ondansetron HCl (Zofran) 4 mg IV Q8H PRN PRN Reason: Nausea And Vomiting Review of Systems All systems: negative (blurry vision, constipation, pain in left arm) Physical Examination - Vital Signs Vital Signs: Vital Signs Temp Pulse Resp BP Pulse Ox 97.7 F 77 12 183/112 98 03/07/18 00:18 03/07/18 00:18 03/07/18 00:18 03/07/18 00:18 03/07/18 00:18 - Physical Exam Narrative exam: Neurological exam - speech is fluent. Oriented x 3. 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 face - mild right asymmetry. V-1 thru V-3 - mild right facial numbness. Hearing intact. Tongue midline. Motor - poor effort on formal exam. favoring left arm at this time because of pain. All muscle groups seem symmetric. Reflexes - markedly decreased throughout. Sensory - hyperesthesia in the lower extremities to touch. Cerebellar - intact FTN, fine finger movements, Deangelo. Is not ambulatory by report. Results - Laboratory Findings CBC and BMP: 03/06/18 23:59 03/06/18 23:59 Abnormal Lab Findings: Abnormal Labs 03/06/18 03/06/18 23:59 23:59 WBC 11.7 H MCV 98 H MCH 33 H Lymph % (Auto) 11.8 L Henry # 0.9 H Seg Neutrophils % 79.0 H Seg Neutrophils # 9.2 H Potassium 5.4 H Chloride 108.8 H Carbon Dioxide 20 L BUN 49 H Creatinine 1.5 H Glucose 104 H Assessment and Plan 77 yr old female presents with chest pain, headache, dizziness. CT brain shows microvascular disease. Atrial fibrillation is stable. Consider cervical spine disease, posterior fossa disease Plan - MRI brain and C-spine. consult to PT/OT Check B-12 level and TFTs
[2018-03-07] MEDS: NITRO-BID 2% TP SCH ×2 (13:05→16:39)
[2018-03-07 15:25] LABS: Creatine Kinase MB 2.1 ng/mL (0.0-4.0)
[2018-03-07 15:35] LABS: Free T4 (Free Thyroxine) 1.1 ng/dL (0.76-1.46)
[2018-03-07] MEDS: ASPIRIN PO SCH (16:37)
[2018-03-07] MEDS ORDERED: D50W (25GM) Syringe IV ONE (17:00)
[2018-03-07 18:06] LABS: Creatine Kinase MB 2.1 ng/mL (0.0-4.0)
[2018-03-07] MEDS ORDERED: AFLURIA QUAD 2018-2019 SYRINGE IM ONE (19:49)
--- NOTE | 2018-03-07 21:35 | Ultrasound Report ---
FINAL REPORT PROCEDURE: US RENAL BILAT TECHNIQUE: Real-time sonography in multiple planes of the kidneys, ureters and urinary bladder was p erformed with image documentation. CPT 36827 HISTORY: renal failure COMPARISON: No prior studies are available for comparison. FINDINGS: RIGHT kidney: There is increased renal parenchymal echotexture. No renal calculi or hydronephrosis no lupillo.. Length: 9.4 x 5.3 x 4.3 cm. LEFT kidney: There is increased renal parenchymal echotexture. No renal calculi or hydronephrosis not ed. Length: 10.2 x 5.1 x 4.3cm. Bladder: Normal. IMPRESSION: No obstructive uropathy Increased parenchymal echotexture is consistent with medical renal disease..
[2018-03-08] MEDS: MORPHINE IV PRN ×4 (02:05→23:12)
[2018-03-08] MEDS: SODIUM BICARBONATE 75 MEQ in NACL 0.45% 1000 ML 1,000 ML IV SCH (05:40)
[2018-03-08 07:05] LABS: Basophils # (Auto) 0.1 K/mm3 (0.0-0.1); Basophils % (Auto) 0.7 % (0.0-1.8); Eosinophils # (Auto) 0.1 K/mm3 (0.0-0.4); Eosinophils % (Auto) 1.2 % (0.0-4.3); Hematocrit 32.8 % (30.3-42.9); Hemoglobin 10.9 gm/dl (10.1-14.3); Lymphocytes # (Auto) 1.5 K/mm3 (1.2-5.4); Mean Corpuscular HGB Conc 33 % (30-34); Mean Corpuscular Volume 97 fl (79-97); Monocytes # (Auto) 0.6 K/mm3 (0.0-0.8); Platelet Count 257 K/mm3 (140-440); Red Blood Count 3.37 M/mm3 (3.65-5.03); Red Cell Distribution Width 14.6 % (13.2-15.2)
--- NOTE | 2018-03-08 10:02 | Progress Note ---
Assessment and Plan Dizziness altered mental status acute renal failure, likely prerenal azotemia hyperkalemia - cont current IVF - BMP is pedning from AM - renal US negative for obstruction - UA and urine lytes, protein and eos ordered - renally dose meds - strict I&O - daily weight Guy Cerna MD [phone] Subjective Date of service: 03/08/18 Principal diagnosis: acute renal failure Interval history: feels weak Objective - Vital Signs Vital signs: Vital Signs - 12hr 03/07/18 03/08/18 03/08/18 23:18 00:47 03:24 Temperature 98.2 F 97.8 F Pulse Rate 99 H 154 H 105 H Respiratory 16 18 Rate Blood Pressure 173/82 150/80 O2 Sat by Pulse 94 92 Oximetry 03/08/18 03/08/18 08:16 08:17 Temperature 98.4 F 98.4 F Pulse Rate 96 H Respiratory 20 20 Rate Blood Pressure 132/101 O2 Sat by Pulse 97 Oximetry - General Appearance General appearance: well-developed, well-nourished EENT: ATNC, PERRL, mucous membranes moist Neck: no JVD, no carotid bruit Respiratory: Present: Clear to Ascultation. Absent: Rales, Ronchi Cardiology: regular, S1S2 Gastrointestinal: normoactive bowel sounds, no tenderness, no distended, obese Integumentary: no rash, warm and dry Neurologic: no focal deficit, no asterixis Musculoskeletal: other (no edema in BLE) Psychiatric: cooperative - Lab 03/08/18 04:44 03/06/18 23:59 Most recent lab results Calcium 9.0 mg/dL (8.4-10.2) 03/06/18 23:59 Phosphorus 3.00 mg/dL (2.5-4.5) 03/08/18 04:44 Medications & Allergies - Medications Allergies/Adverse Reactions: Allergies codeine Allergy (Verified 11/23/13 07:18) Nausea Home Medications: Home Medications Medication Instructions Recorded Confirmed Last Taken Type Diclofenac Sodium 75 mg PO BID #30 tablet. 06/04/16 03/07/18 2 Days Ago Rx ~07/03/16 Verapamil ER [Calan SR] 240 mg PO DAILY #30 tablet 07/05/16 03/07/18 Unknown Rx Apixaban [Eliquis] 5 mg PO Q12HR #60 tablet 02/24/18 03/07/18 Unknown Rx AtorvaSTATin [Lipitor] 20 mg PO QHS 03/07/18 03/07/18 Unknown History Baclofen [Lioresal] 10 mg PO BID 03/07/18 03/07/18 Unknown History Ferrous Sulfate [Feosol] 325 mg PO QDAY 03/07/18 03/07/18 Unknown History traZODone [Desyrel] 100 mg PO QHS 03/07/18 03/07/18 Unknown History Active Medications: Generic Name Dose Route Start Last Admin Trade Name Freq PRN Reason Stop Dose Admin Acetaminophen 650 mg 03/07/18 06:42 03/07/18 22:40 Tylenol PO 650 mg Q4H PRN Administration Headache Aspirin 325 mg 03/07/18 10:00 03/07/18 16:37 Aspirin PO 325 mg QDAY STACI Administration Sodium Bicarbonate 75 meq/ 1,075 mls @ 75 mls/hr 03/08/18 05:00 03/08/18 05:40 Sodium Chloride IV 75 mls/hr DIRECT STACI Administration Morphine Sulfate 2 mg 03/08/18 02:00 03/08/18 06:46 Morphine IV 2 mg Q3H PRN Administration Pain, Moderate (4-6) Nitroglycerin 1 inch 03/07/18 10:00 03/07/18 16:39 Nitro-Bid 2% TP Not Given QIDNTG [facility] Protocol Ondansetron HCl 4 mg 03/07/18 06:38 Zofran IV Q8H PRN Nausea And Vomiting
[2018-03-08] MEDS: NITRO-BID 2% TP SCH ×3 (10:26→19:15)
[2018-03-08] MEDS: TYLENOL PO PRN ×2 (10:27→14:40)
[2018-03-08] MEDS: ASPIRIN PO SCH (10:28)
[2018-03-08] MEDS ORDERED: AFLURIA QUAD 2018-2019 SYRINGE IM ONE (12:00)
--- NOTE | 2018-03-08 13:24 | Progress Note ---
Addendum entered and electronically signed by MARCI VIZCAINO MD 03/08/18 13:56: Patient has permanent atrial fibrillation, and her episodes of shortness of mireille th are likely due to bursts of rapid atrial fibrillation. No further cardiac ischemic workup is indicated. We will optimize atrial fibrillation rate control, resume verapamil and her oral anticoagulation. If additional rate control is needed, we'll add digoxin 0.25 mg daily. Original Note: Assessment and Plan - Patient Problems (1) Atrial fibrillation Current Visit: No Status: Acute Qualifiers: Qualified Code(s): I48.1 - Persistent atrial fibrillation Plan to address problem: Atrial fibrillation, permanent on eliquis as an outpatient for CVA prophylaxis echocardiogram 02/21/18 reports a mildly decreased left ventricular systolic function, EF 40-45%. [facility] 02/2013: no significant CAD, EF 60-65%. Recommend: Continue oral anticoagulation therapy and rate controlling agents with verapamil for chronic atrial fibrillation. Subjective Date of service: 03/08/18 Principal diagnosis: acute renal failure Interval history: Rapid afib seen on telemetry today. No acute distress reported. Objective Vital Signs Temp Pulse Resp BP Pulse Ox 03/08/18 11:03 98.4 F 107 H 20 153/102 95 03/08/18 10:26 84 03/08/18 08:17 98.4 F 20 03/08/18 08:16 98.4 F 96 H 20 132/101 97 03/08/18 03:24 97.8 F 105 H 18 150/80 92 03/08/18 00:47 154 H 03/07/18 23:18 98.2 F 99 H 16 173/82 94 03/07/18 21:48 94 03/07/18 19:31 97.7 F 94 H 16 154/92 95 03/07/18 16:39 103 H 03/07/18 15:44 98.2 F 95 H 20 175/89 97 - Physical Examination General: No Apparent Distress HEENT: Positive: PERRL Cardiac: Positive: irregularly irregular Lungs: Positive: Decreased Breath Sounds Neuro: Positive: Grossly Intact Abdomen: Positive: Soft Extremities: Absent: edema - Labs and Meds Cardiac Enzymes 03/07/18 03/07/18 Range/Units 14:44 17:04 CK-MB (CK-2) 2.1 2.1 (0.0-4.0) ng/mL CBC 03/08/18 Range/Units 04:44 WBC 9.3 (4.5-11.0) K/mm3 RBC 3.37 L (3.65-5.03) M/mm3 Hgb 10.9 (10.1-14.3) gm/dl Hct 32.8 (30.3-42.9) % Plt Count 257 (140-440) K/mm3 Lymph # 1.5 (1.2-5.4) K/mm3 [place] # 0.6 (0.0-0.8) K/mm3 Eos # 0.1 (0.0-0.4) K/mm3 Baso # 0.1 (0.0-0.1) K/mm3 Comprehensive Metabolic Panel 03/08/18 Range/Units 04:44 Sodium 144 (137-145) mmol/L Potassium 5.2 H (3.6-5.0) mmol/L Chloride 107.4 H (98-107) mmol/L Carbon Dioxide 25 (22-30) mmol/L BUN 31 H (7-17) mg/dL Creatinine 1.0 (0.7-1.2) mg/dL Glucose 82 (65-100) mg/dL Calcium 9.0 (8.4-10.2) mg/dL
[2018-03-08] MEDS: CALAN PO SCH ×3 (15:03→23:12)
--- NOTE | 2018-03-08 18:13 | Progress Note ---
Assessment and Plan Assessment and plan: 77 year old female with medical history significant for CVA, hypertension, A. fib presented to the emergency department with complaints of dizziness debility A. fib with RVR - Patient is on verapamil and eliquis - Cardiology is following - Patient need chemical workup before discharge Debility - Patient has difficulty ambulating, and when she tries to ambulate her heart rate is going up - PT /OT evaluated her and recommended sub-acute rehabilitation Hypertension - on verapamil - We will follow and adjust medications as needed Disposition - Continue inpatient care, finish cardiac workup, need rehabilitation. History Interval history: Patient was seen and evaluated this morning, patient was not in distress. Hospitalist Physical - Physical exam Narrative exam: Not in cardiopulmonary distress. The patient is morbidly obese Vital signs as documented. Head exam is unremarkable. No scleral icterus . Neck is without jugular venous distension, thyromegaly, or carotid bruits. Lungs are clear to auscultation. Cardiac exam reveals irregularly irregular rate and rhythm. Abdominal exam reveals normal bowel sounds, no masses, no organomegaly and no aortic enlargement. Extremities are nonedematous and both femoral and pedal pulses are normal. GENERAL HANDLING SUPERVISOR: Alert and oriented 3. No focal weakness. - Constitutional Vitals: Temp Pulse Resp BP Pulse Ox 98.4 F 110 H 20 153/102 95 03/08/18 11:03 03/08/18 15:04 03/08/18 11:03 03/08/18 11:03 03/08/18 11:03 General appearance: Present: no acute distress Results - Labs CBC & Chem 7: 03/09/18 07:14 03/09/18 04:25 Labs: Laboratory Last Values WBC 9.3 K/mm3 (4.5-11.0) 03/08/18 04:44 RBC 3.37 M/mm3 (3.65-5.03) L 03/08/18 04:44 Hgb 10.9 gm/dl (10.1-14.3) 03/08/18 04:44 Hct 32.8 % (30.3-42.9) 03/08/18 04:44 MCV 97 fl (79-97) 03/08/18 04:44 MCH 32 pg (28-32) 03/08/18 04:44 MCHC 33 % (30-34) 03/08/18 04:44 RDW 14.6 % (13.2-15.2) 03/08/18 04:44 Plt Count 257 K/mm3 (140-440) 03/08/18 04:44 Lymph % (Auto) 16.0 % (13.4-35.0) 03/08/18 04:44 [place] % (Auto) 6.0 % (0.0-7.3) 03/08/18 04:44 Eos % (Auto) 1.2 % (0.0-4.3) 03/08/18 04:44 Baso % (Auto) 0.7 % (0.0-1.8) 03/08/18 04:44 Lymph # 1.5 K/mm3 (1.2-5.4) 03/08/18 04:44 [place] # 0.6 K/mm3 (0.0-0.8) 03/08/18 04:44 Eos # 0.1 K/mm3 (0.0-0.4) 03/08/18 04:44 Baso # 0.1 K/mm3 (0.0-0.1) 03/08/18 04:44 Seg Neutrophils % 76.1 % (40.0-70.0) H 03/08/18 04:44 Seg Neutrophils # 7.1 K/mm3 (1.8-7.7) 03/08/18 04:44 Sodium 144 mmol/L (137-145) 03/08/18 04:44 Potassium 5.2 mmol/L (3.6-5.0) H 03/08/18 04:44 Chloride 107.4 mmol/L (98-107) H 03/08/18 04:44 Carbon Dioxide 25 mmol/L (22-30) 03/08/18 04:44 Anion Gap 17 mmol/L 03/08/18 04:44 BUN 31 mg/dL (7-17) H 03/08/18 04:44 Creatinine 1.0 mg/dL (0.7-1.2) 03/08/18 04:44 Estimated GFR 54 ml/min 03/08/18 04:44 BUN/Creatinine Ratio 31 % 03/08/18 04:44 Glucose 82 mg/dL (65-100) 03/08/18 04:44 POC Glucose 105 (70-105) 03/08/18 15:28 Calcium 9.0 mg/dL (8.4-10.2) 03/08/18 04:44 Phosphorus 3.00 mg/dL (2.5-4.5) 03/08/18 04:44 Total Creatine Kinase 54 units/L (30-135) 03/07/18 17:04 CK-MB (CK-2) 2.1 ng/mL (0.0-4.0) 03/07/18 17:04 CK-MB (CK-2) Rel Index 3.8 (0-4) 03/07/18 17:04 Troponin T < 0.010 ng/mL (0.00-0.029) 03/07/18 17:04 Vitamin B12 473.7 pg/mL (211-911) 03/07/18 14:53 TSH 1.090 mlU/mL (0.270-4.200) 03/07/18 14:53 Free T4 1.10 ng/dL (0.76-1.46) 03/07/18 14:53 Urine Color Yellow (Yellow) 03/06/18 01:45 Urine Turbidity Clear (Clear) 03/06/18 01:45 Urine pH 5.0 (5.0-7.0) 03/06/18 01:45 Ur Specific [place] 1.017 (1.003-1.030) 03/06/18 01:45 Urine Protein 30 mg/dl mg/dL (Negative) 03/06/18 01:45 Urine Glucose (UA) Neg mg/dL (Negative) 03/06/18 01:45 Urine Ketones Neg mg/dL (Negative) 03/06/18 01:45 Urine Blood Neg (Negative) 03/06/18 01:45 Urine Nitrite Neg (Negative) 03/06/18 01:45 Urine Bilirubin Neg (Negative) 03/06/18 01:45 Urine Urobilinogen 2.0 mg/dL (<2.0) 03/06/18 01:45 Ur Leukocyte Esterase Neg (Negative) 03/06/18 01:45 Urine WBC (Auto) 1.0 /HPF (0.0-6.0) 03/06/18 01:45 Urine RBC (Auto) 1.0 /HPF (0.0-6.0) 03/06/18 01:45 U Epithel Cells (Auto) 1.0 /HPF (0-13.0) 03/06/18 01:45 Hyaline Casts 1 /LPF 03/06/18 01:45 Urine Mucus Few /HPF 03/06/18 01:45
[2018-03-08] MEDS: ELIQUIS PO SCH (23:00)
[2018-03-09 05:25] LABS: Basophils % (Auto) 0.4 % (0.0-1.8); Eosinophils # (Auto) 0.1 K/mm3 (0.0-0.4); Eosinophils % (Auto) 1.2 % (0.0-4.3); Hematocrit 34.1 % (30.3-42.9); Hemoglobin 11.3 gm/dl (10.1-14.3); Lymphocytes # (Auto) 1.7 K/mm3 (1.2-5.4); Mean Corpuscular HGB Conc 33 % (30-34); Mean Corpuscular Volume 98 fl (79-97); Monocytes # (Auto) 0.9 K/mm3 (0.0-0.8); Monocytes % (Auto) 8.4 % (0.0-7.3); Platelet Count 256 K/mm3 (140-440); Red Blood Count 3.46 M/mm3 (3.65-5.03); Red Cell Distribution Width 14.7 % (13.2-15.2)
[2018-03-09] MEDS: TYLENOL PO PRN ×2 (05:33→11:43)
[2018-03-09] MEDS: CALAN PO SCH ×3 (05:33→22:43)
[2018-03-09] MEDS: SODIUM BICARBONATE 75 MEQ in NACL 0.45% 1000 ML 1,000 ML IV SCH (05:35)
[2018-03-09 05:44] LABS: Calcium 8.9 mg/dL (8.4-10.2)
[2018-03-09 07:54] LABS: Basophils # (Auto) 0.1 K/mm3 (0.0-0.1); Basophils % (Auto) 0.7 % (0.0-1.8); Eosinophils # (Auto) 0.1 K/mm3 (0.0-0.4); Hematocrit 32.6 % (30.3-42.9); Hemoglobin 10.8 gm/dl (10.1-14.3); Lymphocytes # (Auto) 1.2 K/mm3 (1.2-5.4); Lymphocytes % (Auto) 12.1 % (13.4-35.0); Mean Corpuscular HGB Conc 33 % (30-34); Mean Corpuscular Volume 98 fl (79-97); Monocytes # (Auto) 0.7 K/mm3 (0.0-0.8); Monocytes % (Auto) 7.3 % (0.0-7.3); Platelet Count 238 K/mm3 (140-440); Red Blood Count 3.33 M/mm3 (3.65-5.03); Red Cell Distribution Width 14.8 % (13.2-15.2)
[2018-03-09] MEDS: MORPHINE IV PRN ×3 (08:39→23:33)
[2018-03-09] MEDS: ELIQUIS PO SCH ×2 (09:55→22:43)
[2018-03-09] MEDS: NITRO-BID 2% TP SCH ×3 (09:56→14:21)
--- NOTE | 2018-03-09 10:23 | Progress Note ---
Assessment and Plan Acute renal failure, likely prerenal azotemia Hyperkalemia - Renal function reviewed. Serum creatinine 1.0 - On Sodium Bicarbonate 75 meq in 1/2NS@ 75 ml/hr - Renal US negative for obstruction - Pelvic pain- has purewick, ordered bladder scan - UA and urine lytes, protein labs reviewed - Urine eosinophils not resulted - Hyperkalemia- ordered Kayexalate/Insulin and D50 - Renally dose meds - Strict I&O - Obtain daily weights Dizziness and Weakness -MRI of brain and cervical spine ordered -Neurology onboard Subjective Date of service: 03/09/18 Principal diagnosis: acute renal failure Interval history: Patient complains of pelvic pain that started this morning. Objective - Vital Signs Vital signs: Vital Signs - 12hr 03/08/18 03/08/18 03/08/18 23:12 23:24 23:32 Temperature 98.9 F Pulse Rate 97 H 95 H Respiratory 14 Rate Blood Pressure 149/88 142/83 O2 Sat by Pulse 92 94 Oximetry 03/09/18 03/09/18 03/09/18 04:10 05:33 08:14 Temperature 98.3 F 98.4 F Pulse Rate 103 H 120 H 92 H Respiratory 16 20 Rate Blood Pressure 136/80 136/80 151/81 O2 Sat by Pulse 92 95 Oximetry 03/09/18 09:56 Temperature Pulse Rate 92 H Respiratory Rate Blood Pressure 151/81 O2 Sat by Pulse Oximetry - General Appearance General appearance: well-developed, obese, fatigue EENT: ATNC, PERRL, hearing intact, vision intact Neck: no JVD, supple Respiratory: Present: Decreased Breath Sounds Cardiology: S1S2 Gastrointestinal: normoactive bowel sounds, obese Integumentary: other (has PVD) Neurologic: alert and oriented x3 Musculoskeletal: joint swelling, other (has 1+ edema to lower extremities and legs are sensitive to touch) - Lab 03/09/18 07:14 03/09/18 04:25 Most recent lab results Calcium 8.9 mg/dL (8.4-10.2) 03/09/18 04:25 Phosphorus 3.00 mg/dL (2.5-4.5) 03/08/18 04:44 Medications & Allergies - Medications Allergies/Adverse Reactions: Allergies codeine Allergy (Verified 11/23/13 07:18) Nausea Home Medications: Home Medications Medication Instructions Recorded Confirmed Last Taken Type Diclofenac Sodium 75 mg PO BID #30 tablet. 06/04/16 03/07/18 2 Days Ago Rx ~07/03/16 Verapamil ER [Calan SR] 240 mg PO DAILY #30 tablet 07/05/16 03/07/18 Unknown Rx Apixaban [Eliquis] 5 mg PO Q12HR #60 tablet 02/24/18 03/07/18 Unknown Rx AtorvaSTATin [Lipitor] 20 mg PO QHS 03/07/18 03/07/18 Unknown History Baclofen [Lioresal] 10 mg PO BID 03/07/18 03/07/18 Unknown History Ferrous Sulfate [Feosol] 325 mg PO QDAY 03/07/18 03/07/18 Unknown History traZODone [Desyrel] 100 mg PO QHS 03/07/18 03/07/18 Unknown History Active Medications: Generic Name Dose Route Start Last Admin Trade Name Freq PRN Reason Stop Dose Admin Acetaminophen 650 mg 03/07/18 06:42 03/09/18 05:33 Tylenol PO 650 mg Q4H PRN Administration Headache Apixaban 5 mg 03/08/18 22:00 03/09/18 09:55 Eliquis PO 5 mg Q12HR STACI Administration Protocol Sodium Bicarbonate 75 meq/ 1,075 mls @ 75 mls/hr 03/08/18 05:00 03/09/18 05:35 Sodium Chloride IV 75 mls/hr DIRECT STACI Administration Morphine Sulfate 2 mg 03/08/18 02:00 03/09/18 08:39 Morphine IV 2 mg Q3H PRN Administration Pain, Moderate (4-6) Nitroglycerin 1 inch 03/07/18 10:00 03/09/18 09:56 Nitro-Bid 2% TP 1 inch QIDNTG STACI Administration Protocol Ondansetron HCl 4 mg 03/07/18 06:38 Zofran IV Q8H PRN Nausea And Vomiting Verapamil HCl 80 mg 03/08/18 13:30 03/09/18 05:33 Calan PO 80 mg Q8HR STACI Administration
--- NOTE | 2018-03-09 10:34 | Query- Renal Failure ---
David Erickson___Beatrice Date:__03/09/2018 Loan Servicing Specialist/CDS:___Jeannette Phone#:__[phone] Exercise your independent professional judgment when responding to query. Questions asked do not imply a particular answer is desired or expected. We greatly appreciate your clarification on this issue. Clinical Documentation States: 77 yr old rt. handed female presented to ER with complaints of headache and dizziness worsening over the past week. She also noted generalized weakness. The Nephrology progress note stated "acute renal failure, likely prerenal azotemia." Clinical Findings Show: Creatinine 03/06 1.5 03/08 1.0 Please clarify if you mean: Acute Renal Failure with or due to: [ ] Tubular Necrosis [ ] Medullary Necrosis [x ] Vasomotor Nephropathy [ ] Shock Kidney [ ] Tubular Nephrosis [ ] Renal Tubular Stasis [ ] Cortical Necrosis [ ] Acute Renal Failure (unspecified) [ ] Lower Tubular Nephrosis [ ] Other: [ ] Not Applicable Present on Admission: [x ] Yes (Y) [ ] Clinically undeterminable (W) [ ] No (N) Please also document response in your Progress Notes and/or Discharge Summary and indicate if the condition was present on admission. MTDD
[2018-03-09] MEDS ORDERED: KIONEX PO ONE (10:50)
[2018-03-09] MEDS ORDERED: HumuLIN R IV ONE (10:51)
[2018-03-09] MEDS ORDERED: D50W (25GM) Syringe IV ONE (10:52)
--- NOTE | 2018-03-09 11:20 | Progress Note ---
Assessment and Plan - Patient Problems (1) Atrial fibrillation Current Visit: No Status: Acute Qualifiers: Qualified Code(s): I48.1 - Persistent atrial fibrillation Plan to address problem: Atrial fibrillation, permanent on eliquis as an outpatient for CVA prophylaxis echocardiogram 02/21/18 reports a mildly decreased left ventricular systolic function, EF 40-45%. [facility] 02/2013: no significant CAD, EF 60-65%. Recommend: Continue oral anticoagulation therapy and rate controlling agents with verapamil for chronic atrial fibrillation. If additional rate control is needed, we'll add digoxin 0.25 mg daily. Subjective Date of service: 03/09/18 Principal diagnosis: acute renal failure Interval history: Patient is resting in bed comfortably. Afib with a well controlled ventricular rate on telemetry. Objective Vital Signs Temp Pulse Resp BP Pulse Ox 03/09/18 11:03 98.0 F 102 H 20 146/92 94 03/09/18 09:56 92 H 151/81 03/09/18 08:14 98.4 F 92 H 20 151/81 95 03/09/18 05:33 120 H 136/80 03/09/18 04:10 98.3 F 103 H 16 136/80 92 03/08/18 23:32 94 03/08/18 23:24 98.9 F 95 H 14 142/83 92 03/08/18 23:12 97 H 149/88 03/08/18 19:40 98.9 F 97 H 16 149/88 91 03/08/18 19:15 108 H 03/08/18 15:30 98.0 F 110 H 20 135/88 92 03/08/18 15:04 110 H 03/08/18 15:03 110 H 03/08/18 14:36 110 H - Physical Examination General: No Apparent Distress HEENT: Positive: PERRL Cardiac: Positive: irregularly irregular Lungs: Positive: Decreased Breath Sounds Neuro: Positive: Grossly Intact Extremities: Absent: edema - Labs and Meds CBC 03/09/18 03/09/18 Range/Units 04:25 07:14 WBC 10.6 10.0 (4.5-11.0) K/mm3 RBC 3.46 L 3.33 L (3.65-5.03) M/mm3 Hgb 11.3 10.8 (10.1-14.3) gm/dl Hct 34.1 32.6 (30.3-42.9) % Plt Count 256 238 (140-440) K/mm3 Lymph # 1.7 1.2 (1.2-5.4) K/mm3 [place] # 0.9 H 0.7 (0.0-0.8) K/mm3 Eos # 0.1 0.1 (0.0-0.4) K/mm3 Baso # 0.0 0.1 (0.0-0.1) K/mm3 Comprehensive Metabolic Panel 03/09/18 Range/Units 04:25 Sodium 145 (137-145) mmol/L Potassium 5.7 H (3.6-5.0) mmol/L Chloride 106.2 (98-107) mmol/L Carbon Dioxide 28 (22-30) mmol/L BUN 26 H (7-17) mg/dL Creatinine 1.0 (0.7-1.2) mg/dL Glucose 94 (65-100) mg/dL Calcium 8.9 (8.4-10.2) mg/dL
[2018-03-10] MEDS: CALAN PO SCH ×3 (05:26→21:27)
[2018-03-10] MEDS: SODIUM BICARBONATE 75 MEQ in NACL 0.45% 1000 ML 1,000 ML IV SCH ×2 (06:17→22:58)
[2018-03-10 06:33] LABS: Basophils # (Auto) 0.1 K/mm3 (0.0-0.1); Basophils % (Auto) 0.5 % (0.0-1.8); Eosinophils # (Auto) 0.1 K/mm3 (0.0-0.4); Eosinophils % (Auto) 0.8 % (0.0-4.3); Hematocrit 34.4 % (30.3-42.9); Hemoglobin 11.7 gm/dl (10.1-14.3); Lymphocytes # (Auto) 1.2 K/mm3 (1.2-5.4); Lymphocytes % (Auto) 12.2 % (13.4-35.0); Mean Corpuscular HGB Conc 34 % (30-34); Mean Corpuscular Volume 96 fl (79-97); Monocytes % (Auto) 9.6 % (0.0-7.3); Platelet Count 244 K/mm3 (140-440); Red Blood Count 3.59 M/mm3 (3.65-5.03)
[2018-03-10] MEDS: NITRO-BID 2% TP SCH ×5 (10:00→18:26)
--- NOTE | 2018-03-10 10:20 | Progress Note ---
Assessment and Plan Acute renal failure, likely prerenal azotemia Hyperkalemia - LUIS ENRIQUE resolved - hyperkalemia resolved - bladder scan prior to discharge - Renally dose meds - Strict I&O - Obtain daily weights Dizziness and Weakness -Neurology onboard Subjective Date of service: 03/10/18 Principal diagnosis: acute renal failure Interval history: stating she is not able to void this AM Objective - Vital Signs Vital signs: Vital Signs - 12hr 03/09/18 03/10/18 03/10/18 22:43 00:00 04:00 Temperature 98.3 F 98.4 F Pulse Rate 105 H 94 H 109 H Respiratory 20 16 Rate Blood Pressure 167/104 Blood Pressure 143/91 165/100 [Left] O2 Sat by Pulse 94 94 Oximetry 03/10/18 03/10/18 03/10/18 05:26 06:21 08:09 Temperature Pulse Rate 104 H 98 H Respiratory Rate Blood Pressure 165/100 Blood Pressure 147/77 [Left] O2 Sat by Pulse 95 Oximetry - General Appearance General appearance: well-developed, well-nourished, obese EENT: ATNC, PERRL, mucous membranes moist Neck: no JVD, no carotid bruit Respiratory: Present: Clear to Ascultation. Absent: Rales, Ronchi Cardiology: regular, S1S2 Gastrointestinal: normoactive bowel sounds, no tenderness, no distended Integumentary: no rash, warm and dry Neurologic: no focal deficit, no asterixis Musculoskeletal: other (no edema in BLE) Psychiatric: cooperative - Lab 03/10/18 05:43 03/10/18 10:35 Most recent lab results Calcium 8.9 mg/dL (8.4-10.2) 03/09/18 04:25 Phosphorus 3.30 mg/dL (2.5-4.5) 03/10/18 05:43 Medications & Allergies - Medications Allergies/Adverse Reactions: Allergies codeine Allergy (Verified 11/23/13 07:18) Nausea Home Medications: Home Medications Medication Instructions Recorded Confirmed Last Taken Type Diclofenac Sodium 75 mg PO BID #30 tablet. 06/04/16 03/07/18 2 Days Ago Rx ~07/03/16 Verapamil ER [Calan SR] 240 mg PO DAILY #30 tablet 07/05/16 03/07/18 Unknown Rx Apixaban [Eliquis] 5 mg PO Q12HR #60 tablet 02/24/18 03/07/18 Unknown Rx AtorvaSTATin [Lipitor] 20 mg PO QHS 03/07/18 03/07/18 Unknown History Baclofen [Lioresal] 10 mg PO BID 03/07/18 03/07/18 Unknown History Ferrous Sulfate [Feosol] 325 mg PO QDAY 03/07/18 03/07/18 Unknown History traZODone [Desyrel] 100 mg PO QHS 03/07/18 03/07/18 Unknown History Active Medications: Generic Name Dose Route Start Last Admin Trade Name Freq PRN Reason Stop Dose Admin Acetaminophen 650 mg 03/07/18 06:42 03/09/18 11:43 Tylenol PO 650 mg Q4H PRN Administration Headache Apixaban 5 mg 03/08/18 22:00 03/09/18 22:43 Eliquis PO 5 mg Q12HR STACI Administration Protocol Sodium Bicarbonate 75 meq/ 1,075 mls @ 75 mls/hr 03/08/18 05:00 03/10/18 06:17 Sodium Chloride IV 75 mls/hr DIRECT STACI Administration Morphine Sulfate 2 mg 03/08/18 02:00 03/09/18 23:33 Morphine IV 2 mg Q3H PRN Administration Pain, Moderate (4-6) Nitroglycerin 1 inch 03/07/18 10:00 03/09/18 14:21 Nitro-Bid 2% TP 1 inch QIDNTG STACI Administration Protocol Ondansetron HCl 4 mg 03/07/18 06:38 Zofran IV Q8H PRN Nausea And Vomiting Verapamil HCl 80 mg 03/08/18 13:30 03/10/18 05:26 Calan PO 80 mg Q8HR STACI Administration
[2018-03-10] MEDS: ELIQUIS PO SCH ×2 (10:23→21:27)
--- NOTE | 2018-03-10 10:50 | Progress Note ---
Addendum entered and electronically signed by MARCI VIZCAINO MD 03/10/18 16:54: Ventricular rate control and oral anticoagulation for chronic atrial fibrillation. Original Note: Assessment and Plan - Patient Problems (1) Atrial fibrillation Current Visit: No Status: Acute Qualifiers: Qualified Code(s): I48.1 - Persistent atrial fibrillation Plan to address problem: Atrial fibrillation, permanent on eliquis as an outpatient for CVA prophylaxis echocardiogram 02/21/18 reports a mildly decreased left ventricular systolic function, EF 40-45%. [facility] 02/2013: no significant CAD, EF 60-65%. Recommend: Continue oral anticoagulation therapy and verapamil for chronic atrial fibrillation. We will add digoxin 0.25 mg daily for optimal rate control. Subjective Date of service: 03/10/18 Principal diagnosis: acute renal failure Interval history: Patient is resting in bed comfortably. No cardiac complaints Objective Vital Signs Temp Pulse Resp BP BP Pulse Ox 03/10/18 08:09 95 03/10/18 06:21 98 H 147/77 03/10/18 05:26 104 H 165/100 03/10/18 04:00 98.4 F 109 H 16 165/100 94 03/10/18 00:00 98.3 F 94 H 20 143/91 94 03/09/18 22:43 105 H 167/104 03/09/18 20:17 95 03/09/18 19:10 97.8 F 98 H 18 164/101 95 03/09/18 16:35 96 03/09/18 15:56 98.0 F 97 H 20 157/85 96 03/09/18 14:21 86 161/81 03/09/18 14:18 92 H 151/81 03/09/18 11:03 98.0 F 102 H 20 146/92 94 03/09/18 10:54 57 L 156/99 96 - Physical Examination General: No Apparent Distress HEENT: Positive: PERRL Cardiac: Positive: irregularly irregular Lungs: Positive: Decreased Breath Sounds Neuro: Positive: Grossly Intact Abdomen: Positive: Soft Extremities: Absent: edema - Labs and Meds CBC 03/10/18 Range/Units 05:43 WBC 9.9 (4.5-11.0) K/mm3 RBC 3.59 L (3.65-5.03) M/mm3 Hgb 11.7 (10.1-14.3) gm/dl Hct 34.4 (30.3-42.9) % Plt Count 244 (140-440) K/mm3 Lymph # 1.2 (1.2-5.4) K/mm3 [place] # 1.0 H (0.0-0.8) K/mm3 Eos # 0.1 (0.0-0.4) K/mm3 Baso # 0.1 (0.0-0.1) K/mm3
[2018-03-10 11:11] LABS: BUN/Creatinine Ratio 21; Blood Urea Nitrogen 17 mg/dL (7-17); Calcium 9.1 mg/dL (8.4-10.2); Hemolysis Index 44
[2018-03-10] MEDS: MORPHINE IV PRN ×2 (11:47→17:58)
[2018-03-10 13:37] LABS: Blood Urea Nitrogen TNR mg/dL (7-17)
[2018-03-10 13:38] LABS: BUN/Creatinine Ratio TNR
[2018-03-10 13:39] LABS: Calcium TNR mg/dL (8.4-10.2); Hemolysis Index TNR
[2018-03-10 14:33] LABS: BUN/Creatinine Ratio 24; Blood Urea Nitrogen 17 mg/dL (7-17); Calcium 9.2 mg/dL (8.4-10.2); Hemolysis Index 32
--- NOTE | 2018-03-10 14:41 | Progress Note ---
Assessment and Plan Assessment and plan: 77 year old female with medical history significant for CVA, hypertension, A. fib presented to the emergency department with complaints of dizziness debility A. fib with RVR - Patient is on verapamil and eliquis, we will add digoxin for better rate control - Cardiology is following Debility - Patient has difficulty ambulating, and when she tries to ambulate her heart rate is going up - PT /OT evaluated her and recommended sub-acute rehabilitation Hypertension - on verapamil - We will follow and adjust medications as needed Dizziness and headache - patient was seen and evaluated by Neurology and was recommended MRI which the patient declined Disposition -Pending to have placement History Interval history: Patient was seen and evaluated this morning, patient was anxious. Refused MRI. Hospitalist Physical - Physical exam Narrative exam: Not in cardiopulmonary distress. The patient is morbidly obese Vital signs as documented. Head exam is unremarkable. No scleral icterus . Neck is without jugular venous distension, thyromegaly, or carotid bruits. Lungs are clear to auscultation. Cardiac exam reveals irregularly irregular rate and rhythm. Abdominal exam reveals normal bowel sounds, no masses, no organomegaly and no aortic enlargement. Extremities are nonedematous and both femoral and pedal pulses are normal. TECHNICAL SALES DIRECTOR: Alert and oriented 3. Generalized weakness. - Constitutional Vitals: Temp Pulse Resp BP Pulse Ox 98.4 F 98 H 16 147/77 95 03/10/18 04:00 03/10/18 06:21 03/10/18 04:00 03/10/18 06:21 03/10/18 08:09 General appearance: Present: no acute distress Results - Labs CBC & Chem 7: 03/10/18 05:43 03/10/18 13:55 Labs: Laboratory Last Values WBC 9.9 K/mm3 (4.5-11.0) 03/10/18 05:43 RBC 3.59 M/mm3 (3.65-5.03) L 03/10/18 05:43 Hgb 11.7 gm/dl (10.1-14.3) 03/10/18 05:43 Hct 34.4 % (30.3-42.9) 03/10/18 05:43 MCV 96 fl (79-97) 03/10/18 05:43 MCH 32 pg (28-32) 03/10/18 05:43 MCHC 34 % (30-34) 03/10/18 05:43 RDW 14.0 % (13.2-15.2) 03/10/18 05:43 Plt Count 244 K/mm3 (140-440) 03/10/18 05:43 Lymph % (Auto) 12.2 % (13.4-35.0) L 03/10/18 05:43 [place] % (Auto) 9.6 % (0.0-7.3) H 03/10/18 05:43 Eos % (Auto) 0.8 % (0.0-4.3) 03/10/18 05:43 Baso % (Auto) 0.5 % (0.0-1.8) 03/10/18 05:43 Lymph # 1.2 K/mm3 (1.2-5.4) 03/10/18 05:43 [place] # 1.0 K/mm3 (0.0-0.8) H 03/10/18 05:43 Eos # 0.1 K/mm3 (0.0-0.4) 03/10/18 05:43 Baso # 0.1 K/mm3 (0.0-0.1) 03/10/18 05:43 Seg Neutrophils % 76.9 % (40.0-70.0) H 03/10/18 05:43 Seg Neutrophils # 7.6 K/mm3 (1.8-7.7) 03/10/18 05:43 Sodium 140 mmol/L (137-145) 03/10/18 13:55 Potassium 4.6 mmol/L (3.6-5.0) 03/10/18 13:55 Chloride 100.8 mmol/L (98-107) 03/10/18 13:55 Carbon Dioxide 27 mmol/L (22-30) 03/10/18 13:55 Anion Gap 17 mmol/L 03/10/18 13:55 BUN 17 mg/dL (7-17) 03/10/18 13:55 Creatinine 0.7 mg/dL (0.7-1.2) 03/10/18 13:55 Estimated GFR > 60 ml/min 03/10/18 13:55 BUN/Creatinine Ratio 24 % 03/10/18 13:55 Glucose 109 mg/dL (65-100) H 03/10/18 13:55 POC Glucose 104 (70-105) 03/10/18 12:02 Calcium 9.2 mg/dL (8.4-10.2) 03/10/18 13:55 Phosphorus 3.30 mg/dL (2.5-4.5) 03/10/18 13:55 Total Creatine Kinase 54 units/L (30-135) 03/07/18 17:04 CK-MB (CK-2) 2.1 ng/mL (0.0-4.0) 03/07/18 17:04 CK-MB (CK-2) Rel Index 3.8 (0-4) 03/07/18 17:04 Troponin T < 0.010 ng/mL (0.00-0.029) 03/07/18 17:04 Vitamin B12 473.7 pg/mL (211-911) 03/07/18 14:53 TSH 1.090 mlU/mL (0.270-4.200) 03/07/18 14:53 Free T4 1.10 ng/dL (0.76-1.46) 03/07/18 14:53 Urine Color Yellow (Yellow) 03/06/18 01:45 Urine Turbidity Clear (Clear) 03/06/18 01:45 Urine pH 5.0 (5.0-7.0) 03/06/18 01:45 Ur Specific [place] 1.017 (1.003-1.030) 03/06/18 01:45 Urine Protein 30 mg/dl mg/dL (Negative) 03/06/18 01:45 Urine Glucose (UA) Neg mg/dL (Negative) 03/06/18 01:45 Urine Ketones Neg mg/dL (Negative) 03/06/18 01:45 Urine Blood Neg (Negative) 03/06/18 01:45 Urine Nitrite Neg (Negative) 03/06/18 01:45 Urine Bilirubin Neg (Negative) 03/06/18 01:45 Urine Urobilinogen 2.0 mg/dL (<2.0) 03/06/18 01:45 Ur Leukocyte Esterase Neg (Negative) 03/06/18 01:45 Urine WBC (Auto) 1.0 /HPF (0.0-6.0) 03/06/18 01:45 Urine RBC (Auto) 1.0 /HPF (0.0-6.0) 03/06/18 01:45 U Epithel Cells (Auto) 1.0 /HPF (0-13.0) 03/06/18 01:45 Hyaline Casts 1 /LPF 03/06/18 01:45 Urine Mucus Few /HPF 03/06/18 01:45
[2018-03-10] MEDS: LANOXIN PO SCH (18:09)
[2018-03-10] MEDS: TYLENOL PO PRN (21:26)
[2018-03-11] MEDS: CALAN PO SCH ×3 (05:08→21:46)
[2018-03-11] MEDS: NITRO-BID 2% TP SCH ×4 (05:08→19:14)
[2018-03-11 05:15] LABS: Hematocrit 34.5 % (30.3-42.9); Hemoglobin 11.8 gm/dl (10.1-14.3); Mean Corpuscular HGB Conc 34 % (30-34); Mean Corpuscular Volume 96 fl (79-97); Platelet Count 251 K/mm3 (140-440); Red Blood Count 3.61 M/mm3 (3.65-5.03); Red Cell Distribution Width 13.8 % (13.2-15.2)
[2018-03-11 05:39] LABS: BUN/Creatinine Ratio 20; Blood Urea Nitrogen 14 mg/dL (7-17); Hemolysis Index 28
[2018-03-11] MEDS: MORPHINE IV PRN ×2 (05:51→21:47)
[2018-03-11 06:00] LABS: Anisocytosis 1+; Basophils % (Manual) 0 % (0.0-1.8); Eosinophils % (Manual) 0 % (0.0-4.3); Giant Platelets Few; Total Cells Counted 100
[2018-03-11 06:01] LABS: Helmet Cells Rare; Ovalocytes 2+; Target Cells Rare
--- NOTE | 2018-03-11 09:16 | Progress Note ---
Addendum entered and electronically signed by MARCI VIZCAINO MD 03/11/18 10:23: Patient with permanent atrial fibrillation, on rate control strategy and chronic oral anticoagulation. Original Note: Assessment and Plan - Patient Problems (1) Atrial fibrillation Current Visit: No Status: Acute Qualifiers: Qualified Code(s): I48.1 - Persistent atrial fibrillation Plan to address problem: Atrial fibrillation, permanent rate control with verapamil and digoxin. on eliquis as an outpatient for CVA prophylaxis echocardiogram 02/21/18 reports a mildly decreased left ventricular systolic function, EF 40-45%. [facility] 02/2013: no significant CAD, EF 60-65%. Plan: Continue oral anticoagulation and rate controlling agents for chronic atrial fibrillation. Subjective Date of service: 03/11/18 Principal diagnosis: acute renal failure Interval history: Patient has no cardiac complaints. Afib with a well controlled ventricular rate. Objective Vital Signs Temp Pulse Pulse Resp BP Pulse Ox 03/11/18 07:57 98.0 F 65 20 151/77 94 03/11/18 05:51 20 03/11/18 05:08 90 161/96 03/11/18 04:27 98.2 F 91 H 20 161/96 93 03/11/18 00:24 97.6 F 95 H 20 141/90 93 03/11/18 00:00 102 H 03/10/18 21:27 103 H 177/100 03/10/18 21:26 20 03/10/18 20:08 99.1 F 106 H 20 177/100 95 03/10/18 17:44 105 H 18 153/93 96 03/10/18 17:43 98.3 F 03/10/18 16:00 92 H 03/10/18 10:00 90 - Physical Examination General: No Apparent Distress HEENT: Positive: PERRL Cardiac: Positive: irregularly irregular Lungs: Positive: Decreased Breath Sounds Neuro: Positive: Grossly Intact Abdomen: Positive: Soft Extremities: Absent: edema - Labs and Meds CBC 03/11/18 Range/Units 04:45 WBC 10.6 (4.5-11.0) K/mm3 RBC 3.61 L (3.65-5.03) M/mm3 Hgb 11.8 (10.1-14.3) gm/dl Hct 34.5 (30.3-42.9) % Plt Count 251 (140-440) K/mm3 Comprehensive Metabolic Panel 03/09/18 03/10/18 03/10/18 Range/Units 07:14 10:35 13:55 Sodium TNR 140 140 Potassium TNR 4.6 4.6 Chloride TNR 102.0 100.8 Carbon Dioxide TNR 26 27 BUN TNR 17 17 Creatinine TNR 0.8 0.7 Glucose TNR 117 H 109 H Calcium TNR 9.1 9.2 03/11/18 Range/Units 04:45 Sodium 140 Potassium 4.2 Chloride 99.4 Carbon Dioxide 28 BUN 14 Creatinine 0.7 Glucose 99 Calcium 9.0
[2018-03-11] MEDS: ELIQUIS PO SCH ×2 (09:30→21:46)
--- NOTE | 2018-03-11 10:51 | Progress Note ---
Assessment and Plan Acute renal failure, likely prerenal azotemia Hyperkalemia - cont to have stable kidney function - hyperkalemia resolved - Renally dose meds - Strict I&O - Obtain daily weights Dizziness and Weakness -Neurology onboard will sign off, please re consult as needed, she will be followed as an outpatient upon discharge Subjective Date of service: 03/11/18 Principal diagnosis: acute renal failure Interval history: cont to have mild pain when she urinates Objective - Vital Signs Vital signs: Vital Signs - 12hr 03/11/18 03/11/18 03/11/18 00:00 00:24 04:27 Temperature 97.6 F 98.2 F Pulse Rate 102 H 95 H 91 H Respiratory 20 20 Rate Blood Pressure 141/90 161/96 O2 Sat by Pulse 93 93 Oximetry 03/11/18 03/11/18 03/11/18 05:08 05:51 07:57 Temperature 98.0 F Pulse Rate 90 65 Respiratory 20 20 Rate Blood Pressure 161/96 151/77 O2 Sat by Pulse 94 Oximetry - General Appearance General appearance: well-developed, well-nourished, obese EENT: ATNC, PERRL, mucous membranes moist Neck: no JVD, no carotid bruit Respiratory: Present: Clear to Ascultation. Absent: Rales, Ronchi Cardiology: regular, S1S2 Gastrointestinal: normoactive bowel sounds, no tenderness, no distended Integumentary: no rash, warm and dry Neurologic: no focal deficit, no asterixis, alert and oriented x3 Musculoskeletal: other (no edema in BLE) Psychiatric: mood/affect appropriate, cooperative - Lab 03/11/18 04:45 03/11/18 04:45 Most recent lab results Calcium 9.0 mg/dL (8.4-10.2) 03/11/18 04:45 Phosphorus 2.90 mg/dL (2.5-4.5) 03/11/18 04:45 Medications & Allergies - Medications Allergies/Adverse Reactions: Allergies codeine Allergy (Verified 11/23/13 07:18) Nausea Home Medications: Home Medications Medication Instructions Recorded Confirmed Last Taken Type Diclofenac Sodium 75 mg PO BID #30 tablet. 06/04/16 03/07/18 2 Days Ago Rx ~07/03/16 Verapamil ER [Calan SR] 240 mg PO DAILY #30 tablet 07/05/16 03/07/18 Unknown Rx Apixaban [Eliquis] 5 mg PO Q12HR #60 tablet 02/24/18 03/07/18 Unknown Rx AtorvaSTATin [Lipitor] 20 mg PO QHS 03/07/18 03/07/18 Unknown History Baclofen [Lioresal] 10 mg PO BID 03/07/18 03/07/18 Unknown History Ferrous Sulfate [Feosol] 325 mg PO QDAY 03/07/18 03/07/18 Unknown History traZODone [Desyrel] 100 mg PO QHS 03/07/18 03/07/18 Unknown History Active Medications: Generic Name Dose Route Start Last Admin Trade Name Freq PRN Reason Stop Dose Admin Acetaminophen 650 mg 03/07/18 06:42 03/10/18 21:26 Tylenol PO 650 mg Q4H PRN Administration Headache Apixaban 5 mg 03/08/18 22:00 03/11/18 09:30 Eliquis PO 5 mg Q12HR STACI Administration Protocol Clonazepam 1 mg 03/10/18 11:27 03/10/18 21:27 Klonopin PO 1 mg BID PRN Administration Anxiety Digoxin 0.25 mg 03/10/18 17:00 03/10/18 18:09 Lanoxin PO 0.25 mg DAILY@1700 STACI Administration Sodium Bicarbonate 75 meq/ 1,075 mls @ 75 mls/hr 03/08/18 05:00 03/10/18 22:58 Sodium Chloride IV 75 mls/hr DIRECT STACI Administration Morphine Sulfate 2 mg 03/08/18 02:00 03/11/18 05:51 Morphine IV 2 mg Q3H PRN Administration Pain, Moderate (4-6) Nitroglycerin 1 inch 03/07/18 10:00 03/11/18 09:30 Nitro-Bid 2% TP 1 inch QIDNTG STACI Administration Protocol Ondansetron HCl 4 mg 03/07/18 06:38 Zofran IV Q8H PRN Nausea And Vomiting Verapamil HCl 80 mg 03/08/18 13:30 03/11/18 05:08 Calan PO 80 mg Q8HR STACI Administration
--- NOTE | 2018-03-11 16:11 | Progress Note ---
Assessment and Plan Assessment and plan: 77 year old female with medical history significant for CVA, hypertension, A. fib presented to the emergency department with complaints of dizziness debility A. fib with RVR - Patient is on verapamil and eliquis, we will add digoxin for better rate control - Cardiology is following Debility - Patient has difficulty ambulating, and when she tries to ambulate her heart rate is going up - PT /OT evaluated her and recommended sub-acute rehabilitation Hypertension - on verapamil - We will follow and adjust medications as needed Dizziness and headache - patient was seen and evaluated by Neurology and was recommended MRI which the patient declined Dysuria - I have ordered U/A yesterday but there was no collected - I Called and speak with the nurse to collect today, start on rocephin emperically Disposition - Plan was to send her to rehab but patient preferred to go home. History Interval history: Patient was seen and evaluated this morning, patient was complaining burning or urination. Hospitalist Physical - Physical exam Narrative exam: Not in cardiopulmonary distress. The patient is morbidly obese Vital signs as documented. Head exam is unremarkable. No scleral icterus . Neck is without jugular venous distension, thyromegaly, or carotid bruits. Lungs are clear to auscultation. Cardiac exam reveals irregularly irregular rate and rhythm. Abdominal exam reveals normal bowel sounds, no masses, no organomegaly and no aortic enlargement. Extremities are nonedematous and both femoral and pedal pulses are normal. 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 Generalized weakness. - Constitutional Vitals: Temp Pulse Resp BP Pulse Ox 98.0 F 65 20 151/77 94 03/11/18 07:57 03/11/18 07:57 03/11/18 07:57 03/11/18 07:57 03/11/18 07:57 General appearance: Present: no acute distress Results - Labs CBC & Chem 7: 03/11/18 04:45 03/11/18 04:45 Labs: Laboratory Last Values WBC 10.6 K/mm3 (4.5-11.0) 03/11/18 04:45 RBC 3.61 M/mm3 (3.65-5.03) L 03/11/18 04:45 Hgb 11.8 gm/dl (10.1-14.3) 03/11/18 04:45 Hct 34.5 % (30.3-42.9) 03/11/18 04:45 MCV 96 fl (79-97) 03/11/18 04:45 MCH 33 pg (28-32) H 03/11/18 04:45 MCHC 34 % (30-34) 03/11/18 04:45 RDW 13.8 % (13.2-15.2) 03/11/18 04:45 Plt Count 251 K/mm3 (140-440) 03/11/18 04:45 Lymph % (Auto) 12.2 % (13.4-35.0) L 03/10/18 05:43 [place] % (Auto) 9.6 % (0.0-7.3) H 03/10/18 05:43 Eos % (Auto) 0.8 % (0.0-4.3) 03/10/18 05:43 Baso % (Auto) 0.5 % (0.0-1.8) 03/10/18 05:43 Lymph # 1.2 K/mm3 (1.2-5.4) 03/10/18 05:43 [place] # 1.0 K/mm3 (0.0-0.8) H 03/10/18 05:43 Eos # 0.1 K/mm3 (0.0-0.4) 03/10/18 05:43 Baso # 0.1 K/mm3 (0.0-0.1) 03/10/18 05:43 Add Manual Diff Complete 03/11/18 04:45 Total Counted 100 03/11/18 04:45 Seg Neutrophils % 76.9 % (40.0-70.0) H 03/10/18 05:43 Seg Neuts % (Manual) 84.0 % (40.0-70.0) H 03/11/18 04:45 Band Neutrophils % 0 % 03/11/18 04:45 Lymphocytes % (Manual) 13.0 % (13.4-35.0) L 03/11/18 04:45 Reactive Lymphs % (Man) 0 % 03/11/18 04:45 Monocytes % (Manual) 3.0 % (0.0-7.3) 03/11/18 04:45 Eosinophils % (Manual) 0 % (0.0-4.3) 03/11/18 04:45 Basophils % (Manual) 0 % (0.0-1.8) 03/11/18 04:45 Metamyelocytes % 0 % 03/11/18 04:45 Myelocytes % 0 % 03/11/18 04:45 Promyelocytes % 0 % 03/11/18 04:45 Blast Cells % 0 % 03/11/18 04:45 Nucleated RBC % Not Reportable 03/11/18 04:45 Seg Neutrophils # 7.6 K/mm3 (1.8-7.7) 03/10/18 05:43 Seg Neutrophils # Man 8.9 K/mm3 (1.8-7.7) H 03/11/18 04:45 Band Neutrophils # 0.0 K/mm3 03/11/18 04:45 Lymphocytes # (Manual) 1.4 K/mm3 (1.2-5.4) 03/11/18 04:45 Abs React Lymphs (Man) 0.0 K/mm3 03/11/18 04:45 Monocytes # (Manual) 0.3 K/mm3 (0.0-0.8) 03/11/18 04:45 Eosinophils # (Manual) 0.0 K/mm3 (0.0-0.4) 03/11/18 04:45 Basophils # (Manual) 0.0 K/mm3 (0.0-0.1) 03/11/18 04:45 Metamyelocytes # 0.0 K/mm3 03/11/18 04:45 Myelocytes # 0.0 K/mm3 03/11/18 04:45 Promyelocytes # 0.0 K/mm3 03/11/18 04:45 Blast Cells # 0.0 K/mm3 03/11/18 04:45 WBC Morphology Not Reportable 03/11/18 04:45 Hypersegmented Neuts Not Reportable 03/11/18 04:45 Hyposegmented Neuts Not Reportable 03/11/18 04:45 Hypogranular Neuts Not Reportable 03/11/18 04:45 Smudge Cells Not Reportable 03/11/18 04:45 Toxic Granulation Not Reportable 03/11/18 04:45 Toxic Vacuolation Not Reportable 03/11/18 04:45 Dohle Bodies Not Reportable 03/11/18 04:45 Pelger-Huet Anomaly Not Reportable 03/11/18 04:45 [place]lyn Rods Not Reportable 03/11/18 04:45 Platelet Estimate Appears normal 03/11/18 04:45 Clumped Platelets Not Reportable 03/11/18 04:45 Plt Clumps, EDTA Not Reportable 03/11/18 04:45 Large Platelets Not Reportable 03/11/18 04:45 Giant Platelets Few 03/11/18 04:45 Platelet Satelliting Not Reportable 03/11/18 04:45 Plt Morphology Comment Not Reportable 03/11/18 04:45 RBC Morphology Not Reportable 03/11/18 04:45 Dimorphic RBCs Not Reportable 03/11/18 04:45 Polychromasia 1+ 03/11/18 04:45 Hypochromasia Not Reportable 03/11/18 04:45 Poikilocytosis Not Reportable 03/11/18 04:45 Anisocytosis 1+ 03/11/18 04:45 Microcytosis Not Reportable 03/11/18 04:45 Macrocytosis Not Reportable 03/11/18 04:45 Spherocytes Not Reportable 03/11/18 04:45 Pappenheimer Bodies Not Reportable 03/11/18 04:45 Sickle Cells Not Reportable 03/11/18 04:45 Target Cells Rare 03/11/18 04:45 Tear Drop Cells Not Reportable 03/11/18 04:45 Ovalocytes 2+ 03/11/18 04:45 Helmet Cells Rare 03/11/18 04:45 [place] Bodies Not Reportable 03/11/18 04:45 [place] Rings Not Reportable 03/11/18 04:45 [place] Cells Not Reportable 03/11/18 04:45 Bite Cells Not Reportable 03/11/18 04:45 Crenated Cell Not Reportable 03/11/18 04:45 Elliptocytes 1+ 03/11/18 04:45 Acanthocytes (Spur) Not Reportable 03/11/18 04:45 Rouleaux Not Reportable 03/11/18 04:45 Hemoglobin C Crystals Not Reportable 03/11/18 04:45 Schistocytes Not Reportable 03/11/18 04:45 Malaria parasites Not Reportable 03/11/18 04:45 [place]rera Bodies Not Reportable 03/11/18 04:45 Hem Pathologist Commnt No 03/11/18 04:45 Sodium 140 mmol/L (137-145) 03/11/18 04:45 Potassium 4.2 mmol/L (3.6-5.0) 03/11/18 04:45 Chloride 99.4 mmol/L (98-107) 03/11/18 04:45 Carbon Dioxide 28 mmol/L (22-30) 03/11/18 04:45 Anion Gap 17 mmol/L 03/11/18 04:45 BUN 14 mg/dL (7-17) 03/11/18 04:45 Creatinine 0.7 mg/dL (0.7-1.2) 03/11/18 04:45 Estimated GFR > 60 ml/min 03/11/18 04:45 BUN/Creatinine Ratio 20 % 03/11/18 04:45 Glucose 99 mg/dL (65-100) 03/11/18 04:45 POC Glucose 104 (70-105) 03/10/18 12:02 Calcium 9.0 mg/dL (8.4-10.2) 03/11/18 04:45 Phosphorus 2.90 mg/dL (2.5-4.5) 03/11/18 04:45 Total Creatine Kinase 54 units/L (30-135) 03/07/18 17:04 CK-MB (CK-2) 2.1 ng/mL (0.0-4.0) 03/07/18 17:04 CK-MB (CK-2) Rel Index 3.8 (0-4) 03/07/18 17:04 Troponin T < 0.010 ng/mL (0.00-0.029) 03/07/18 17:04 Vitamin B12 473.7 pg/mL (211-911) 03/07/18 14:53 TSH 1.090 mlU/mL (0.270-4.200) 03/07/18 14:53 Free T4 1.10 ng/dL (0.76-1.46) 03/07/18 14:53 Urine Color Yellow (Yellow) 03/06/18 01:45 Urine Turbidity Clear (Clear) 03/06/18 01:45 Urine pH 5.0 (5.0-7.0) 03/06/18 01:45 Ur Specific [place] 1.017 (1.003-1.030) 03/06/18 01:45 Urine Protein 30 mg/dl mg/dL (Negative) 03/06/18 01:45 Urine Glucose (UA) Neg mg/dL (Negative) 03/06/18 01:45 Urine Ketones Neg mg/dL (Negative) 03/06/18 01:45 Urine Blood Neg (Negative) 03/06/18 01:45 Urine Nitrite Neg (Negative) 03/06/18 01:45 Urine Bilirubin Neg (Negative) 03/06/18 01:45 Urine Urobilinogen 2.0 mg/dL (<2.0) 03/06/18 01:45 Ur Leukocyte Esterase Neg (Negative) 03/06/18 01:45 Urine WBC (Auto) 1.0 /HPF (0.0-6.0) 03/06/18 01:45 Urine RBC (Auto) 1.0 /HPF (0.0-6.0) 03/06/18 01:45 U Epithel Cells (Auto) 1.0 /HPF (0-13.0) 03/06/18 01:45 Hyaline Casts 1 /LPF 03/06/18 01:45 Urine Mucus Few /HPF 03/06/18 01:45
[2018-03-11 16:50] LABS: Bacteria,Urine 1+ /HPF (Negative); Bilirubin,Urine NEG (Negative); Blood,Urine NEG (Negative); Color,Urine Yellow (Yellow); Protein,Urine <15 mg/dL mg/dL (Negative); WBC,Urine < 1.0 /HPF (0.0-6.0)
[2018-03-11] MEDS: TYLENOL PO PRN (18:41)
[2018-03-11] MEDS: ROCEPHIN/NS 1 GM/50 ML 1 GM/50 ML BAG IV SCH (18:49)
[2018-03-11] MEDS: LANOXIN PO SCH (19:10)
[2018-03-12] MEDS: NITRO-BID 2% TP SCH ×5 (05:52→20:20)
[2018-03-12] MEDS: CALAN PO SCH ×3 (05:53→21:14)
[2018-03-12] MEDS: MORPHINE IV PRN (05:53)
[2018-03-12 08:26] LABS: Basophils % (Auto) 0.4 % (0.0-1.8); Eosinophils # (Auto) 0.1 K/mm3 (0.0-0.4); Eosinophils % (Auto) 0.7 % (0.0-4.3); Hematocrit 33.1 % (30.3-42.9); Lymphocytes % (Auto) 9.8 % (13.4-35.0); Mean Corpuscular HGB Conc 33 % (30-34); Mean Corpuscular Volume 97 fl (79-97); Monocytes # (Auto) 0.8 K/mm3 (0.0-0.8); Monocytes % (Auto) 7.6 % (0.0-7.3); Platelet Count 240 K/mm3 (140-440); Red Blood Count 3.43 M/mm3 (3.65-5.03); Red Cell Distribution Width 14.1 % (13.2-15.2)
[2018-03-12 08:33] LABS: BUN/Creatinine Ratio 16; Blood Urea Nitrogen 13 mg/dL (7-17); Hemolysis Index 0
[2018-03-12] MEDS: ELIQUIS PO SCH ×2 (09:42→21:14)
--- NOTE | 2018-03-12 09:44 | Progress Note ---
Assessment and Plan Atrial fibrillation, permanent rate control with verapamil and digoxin. on eliquis as an outpatient for CVA prophylaxis echocardiogram 02/21/18 reports a mildly decreased left ventricular systolic function, EF 40-45%. [facility] 02/2013: no significant CAD, EF 60-65%. Plan: Continue oral anticoagulation and rate controlling agents for chronic atrial fibrillation. Subjective Date of service: 03/12/18 Principal diagnosis: acute renal failure Interval history: Patient is doing well cardiac byrd HR on tele 99-103 Objective Vital Signs Temp Pulse Resp BP Pulse Ox 03/12/18 08:03 98.4 F 85 20 145/85 97 03/12/18 05:53 100 H 161/84 03/12/18 05:52 100 H 161/84 03/12/18 05:15 98.3 F 100 H 22 161/84 96 03/12/18 00:04 98.6 F 87 18 151/80 94 03/12/18 00:00 99 H 03/11/18 21:48 96 03/11/18 21:47 20 03/11/18 21:46 90 156/91 03/11/18 20:15 98.8 F 89 18 156/91 93 03/11/18 12:17 98.2 F 100 H 20 170/99 96 - Physical Examination General: No Apparent Distress HEENT: Positive: PERRL Neck: Positive: neck supple Cardiac: Positive: irregularly irregular Lungs: Positive: clear to auscultation Neuro: Positive: Grossly Intact Abdomen: Positive: Soft Skin: Positive: Clear Extremities: Absent: edema - Labs and Meds CBC 03/12/18 Range/Units 07:41 WBC 10.1 (4.5-11.0) K/mm3 RBC 3.43 L (3.65-5.03) M/mm3 Hgb 11.0 (10.1-14.3) gm/dl Hct 33.1 (30.3-42.9) % Plt Count 240 (140-440) K/mm3 Lymph # 1.0 L (1.2-5.4) K/mm3 [place] # 0.8 (0.0-0.8) K/mm3 Eos # 0.1 (0.0-0.4) K/mm3 Baso # 0.0 (0.0-0.1) K/mm3 Comprehensive Metabolic Panel 03/12/18 Range/Units 07:41 Sodium 142 (137-145) mmol/L Potassium 4.4 (3.6-5.0) mmol/L Chloride 100.5 (98-107) mmol/L Carbon Dioxide 31 H (22-30) mmol/L BUN 13 (7-17) mg/dL Creatinine 0.8 (0.7-1.2) mg/dL Glucose 104 H (65-100) mg/dL Calcium 9.0 (8.4-10.2) mg/dL
[2018-03-12] MEDS: ROCEPHIN/NS 1 GM/50 ML 1 GM/50 ML BAG IV SCH (10:46)
--- NOTE | 2018-03-12 13:54 | Progress Note ---
Assessment and Plan Assessment and plan: 77 year old female with medical history significant for CVA, hypertension, A. fib presented to the emergency department with complaints of dizziness debility A. fib with RVR - Patient is on verapamil and eliquis, we will add digoxin for better rate control - Cardiology is following Debility - Patient has difficulty ambulating, and when she tries to ambulate her heart rate is going up - PT /OT evaluated her and recommended sub-acute rehabilitation Hypertension - on verapamil - We will follow and adjust medications as needed Dizziness and headache - patient was seen and evaluated by Neurology and was recommended MRI which the patient declined Bladder pain - U/a negative Disposition - Pending rehab placement History Interval history: Patient was seen and evaluated this morning, patient is complaining bladder pain. U/A is negative Hospitalist Physical - Physical exam Narrative exam: Not in cardiopulmonary distress. The patient is morbidly obese Vital signs as documented. Head exam is unremarkable. No scleral icterus . Neck is without jugular venous distension, thyromegaly, or carotid bruits. Lungs are clear to auscultation. Cardiac exam reveals irregularly irregular rate and rhythm. Abdominal exam reveals normal bowel sounds, no masses, no organomegaly and no aortic enlargement. Extremities are nonedematous and both femoral and pedal pulses are normal. 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 Generalized weakness. - Constitutional Vitals: Temp Pulse Resp BP Pulse Ox 98.0 F 98 H 20 142/89 95 03/12/18 11:01 03/12/18 11:01 03/12/18 11:01 03/12/18 11:01 03/12/18 11:01 General appearance: Present: no acute distress Results - Labs CBC & Chem 7: 03/12/18 07:41 03/12/18 07:41 Labs: Laboratory Last Values WBC 10.1 K/mm3 (4.5-11.0) 03/12/18 07:41 RBC 3.43 M/mm3 (3.65-5.03) L 03/12/18 07:41 Hgb 11.0 gm/dl (10.1-14.3) 03/12/18 07:41 Hct 33.1 % (30.3-42.9) 03/12/18 07:41 MCV 97 fl (79-97) 03/12/18 07:41 MCH 32 pg (28-32) 03/12/18 07:41 MCHC 33 % (30-34) 03/12/18 07:41 RDW 14.1 % (13.2-15.2) 03/12/18 07:41 Plt Count 240 K/mm3 (140-440) 03/12/18 07:41 Lymph % (Auto) 9.8 % (13.4-35.0) L 03/12/18 07:41 [place] % (Auto) 7.6 % (0.0-7.3) H 03/12/18 07:41 Eos % (Auto) 0.7 % (0.0-4.3) 03/12/18 07:41 Baso % (Auto) 0.4 % (0.0-1.8) 03/12/18 07:41 Lymph # 1.0 K/mm3 (1.2-5.4) L 03/12/18 07:41 [place] # 0.8 K/mm3 (0.0-0.8) 03/12/18 07:41 Eos # 0.1 K/mm3 (0.0-0.4) 03/12/18 07:41 Baso # 0.0 K/mm3 (0.0-0.1) 03/12/18 07:41 Add Manual Diff Complete 03/11/18 04:45 Total Counted 100 03/11/18 04:45 Seg Neutrophils % 81.5 % (40.0-70.0) H 03/12/18 07:41 Seg Neuts % (Manual) 84.0 % (40.0-70.0) H 03/11/18 04:45 Band Neutrophils % 0 % 03/11/18 04:45 Lymphocytes % (Manual) 13.0 % (13.4-35.0) L 03/11/18 04:45 Reactive Lymphs % (Man) 0 % 03/11/18 04:45 Monocytes % (Manual) 3.0 % (0.0-7.3) 03/11/18 04:45 Eosinophils % (Manual) 0 % (0.0-4.3) 03/11/18 04:45 Basophils % (Manual) 0 % (0.0-1.8) 03/11/18 04:45 Metamyelocytes % 0 % 03/11/18 04:45 Myelocytes % 0 % 03/11/18 04:45 Promyelocytes % 0 % 03/11/18 04:45 Blast Cells % 0 % 03/11/18 04:45 Nucleated RBC % Not Reportable 03/11/18 04:45 Seg Neutrophils # 8.2 K/mm3 (1.8-7.7) H 03/12/18 07:41 Seg Neutrophils # Man 8.9 K/mm3 (1.8-7.7) H 03/11/18 04:45 Band Neutrophils # 0.0 K/mm3 03/11/18 04:45 Lymphocytes # (Manual) 1.4 K/mm3 (1.2-5.4) 03/11/18 04:45 Abs React Lymphs (Man) 0.0 K/mm3 03/11/18 04:45 Monocytes # (Manual) 0.3 K/mm3 (0.0-0.8) 03/11/18 04:45 Eosinophils # (Manual) 0.0 K/mm3 (0.0-0.4) 03/11/18 04:45 Basophils # (Manual) 0.0 K/mm3 (0.0-0.1) 03/11/18 04:45 Metamyelocytes # 0.0 K/mm3 03/11/18 04:45 Myelocytes # 0.0 K/mm3 03/11/18 04:45 Promyelocytes # 0.0 K/mm3 03/11/18 04:45 Blast Cells # 0.0 K/mm3 03/11/18 04:45 WBC Morphology Not Reportable 03/11/18 04:45 Hypersegmented Neuts Not Reportable 03/11/18 04:45 Hyposegmented Neuts Not Reportable 03/11/18 04:45 Hypogranular Neuts Not Reportable 03/11/18 04:45 Smudge Cells Not Reportable 03/11/18 04:45 Toxic Granulation Not Reportable 03/11/18 04:45 Toxic Vacuolation Not Reportable 03/11/18 04:45 Dohle Bodies Not Reportable 03/11/18 04:45 Pelger-Huet Anomaly Not Reportable 03/11/18 04:45 [place] Rods Not Reportable 03/11/18 04:45 Platelet Estimate Appears normal 03/11/18 04:45 Clumped Platelets Not Reportable 03/11/18 04:45 Plt Clumps, EDTA Not Reportable 03/11/18 04:45 Large Platelets Not Reportable 03/11/18 04:45 Giant Platelets Few 03/11/18 04:45 Platelet Satelliting Not Reportable 03/11/18 04:45 Plt Morphology Comment Not Reportable 03/11/18 04:45 RBC Morphology Not Reportable 03/11/18 04:45 Dimorphic RBCs Not Reportable 03/11/18 04:45 Polychromasia 1+ 03/11/18 04:45 Hypochromasia Not Reportable 03/11/18 04:45 Poikilocytosis Not Reportable 03/11/18 04:45 Anisocytosis 1+ 03/11/18 04:45 Microcytosis Not Reportable 03/11/18 04:45 Macrocytosis Not Reportable 03/11/18 04:45 Spherocytes Not Reportable 03/11/18 04:45 Pappenheimer Bodies Not Reportable 03/11/18 04:45 Sickle Cells Not Reportable 03/11/18 04:45 Target Cells Rare 03/11/18 04:45 Tear Drop Cells Not Reportable 03/11/18 04:45 Ovalocytes 2+ 03/11/18 04:45 Helmet Cells Rare 03/11/18 04:45 [place]-Friend Bodies Not Reportable 03/11/18 04:45 [place] Rings Not Reportable 03/11/18 04:45 [place] Cells Not Reportable 03/11/18 04:45 Bite Cells Not Reportable 03/11/18 04:45 Crenated Cell Not Reportable 03/11/18 04:45 Elliptocytes 1+ 03/11/18 04:45 Acanthocytes (Spur) Not Reportable 03/11/18 04:45 Rouleaux Not Reportable 03/11/18 04:45 Hemoglobin C Crystals Not Reportable 03/11/18 04:45 Schistocytes Not Reportable 03/11/18 04:45 Malaria parasites Not Reportable 03/11/18 04:45 Herrera Bodies Not Reportable 03/11/18 04:45 Hem Pathologist Commnt No 03/11/18 04:45 Sodium 142 mmol/L (137-145) 03/12/18 07:41 Potassium 4.4 mmol/L (3.6-5.0) 03/12/18 07:41 Chloride 100.5 mmol/L (98-107) 03/12/18 07:41 Carbon Dioxide 31 mmol/L (22-30) H 03/12/18 07:41 Anion Gap 15 mmol/L 03/12/18 07:41 BUN 13 mg/dL (7-17) 03/12/18 07:41 Creatinine 0.8 mg/dL (0.7-1.2) 03/12/18 07:41 Estimated GFR > 60 ml/min 03/12/18 07:41 BUN/Creatinine Ratio 16 % 03/12/18 07:41 Glucose 104 mg/dL (65-100) H 03/12/18 07:41 POC Glucose 92 (70-105) 03/11/18 12:17 Calcium 9.0 mg/dL (8.4-10.2) 03/12/18 07:41 Phosphorus 3.10 mg/dL (2.5-4.5) 03/12/18 06:00 Total Creatine Kinase 54 units/L (30-135) 03/07/18 17:04 CK-MB (CK-2) 2.1 ng/mL (0.0-4.0) 03/07/18 17:04 CK-MB (CK-2) Rel Index 3.8 (0-4) 03/07/18 17:04 Troponin T < 0.010 ng/mL (0.00-0.029) 03/07/18 17:04 Vitamin B12 473.7 pg/mL (211-911) 03/07/18 14:53 TSH 1.090 mlU/mL (0.270-4.200) 03/07/18 14:53 Free T4 1.10 ng/dL (0.76-1.46) 03/07/18 14:53 Urine Color Yellow (Yellow) 03/11/18 16:20 Urine Turbidity Clear (Clear) 03/11/18 16:20 Urine pH 9.0 (5.0-7.0) H 03/11/18 16:20 Ur Specific [place] 1.006 (1.003-1.030) 03/11/18 16:20 Urine Protein <15 mg/dl mg/dL (Negative) 03/11/18 16:20 Urine Glucose (UA) Neg mg/dL (Negative) 03/11/18 16:20 Urine Ketones Neg mg/dL (Negative) 03/11/18 16:20 Urine Blood Neg (Negative) 03/11/18 16:20 Urine Nitrite Neg (Negative) 03/11/18 16:20 Urine Bilirubin Neg (Negative) 03/11/18 16:20 Urine Urobilinogen 4.0 mg/dL (<2.0) 03/11/18 16:20 Ur Leukocyte Esterase Neg (Negative) 03/11/18 16:20 Urine WBC (Auto) < 1.0 /HPF (0.0-6.0) 03/11/18 16:20 Urine RBC (Auto) 1.0 /HPF (0.0-6.0) 03/11/18 16:20 U Epithel Cells (Auto) 1.0 /HPF (0-13.0) 03/06/18 01:45 Urine Bacteria (Auto) 1+ /HPF (Negative) 03/11/18 16:20 Hyaline Casts 1 /LPF 03/06/18 01:45 Urine Mucus Few /HPF 03/06/18 01:45 Urine Yeast (Budding) Few /HPF 03/11/18 16:20
[2018-03-12] MEDS: PERCOCET 5/325 PO PRN ×2 (14:35→20:33)
[2018-03-12] MEDS: LANOXIN PO SCH (18:25)
[2018-03-13] MEDS: PERCOCET 5/325 PO PRN ×2 (05:03→16:32)
[2018-03-13] MEDS: CALAN PO SCH ×3 (05:04→21:58)
[2018-03-13] MEDS: NITRO-BID 2% TP SCH ×4 (05:04→17:38)
[2018-03-13 08:13] LABS: BUN/Creatinine Ratio 21; Blood Urea Nitrogen 19 mg/dL (7-17); Calcium 8.6 mg/dL (8.4-10.2); Hemolysis Index 5
[2018-03-13 08:18] LABS: Basophils # (Auto) 0.1 K/mm3 (0.0-0.1); Basophils % (Auto) 0.9 % (0.0-1.8); Eosinophils # (Auto) 0.1 K/mm3 (0.0-0.4); Eosinophils % (Auto) 1.3 % (0.0-4.3); Hematocrit 32.9 % (30.3-42.9); Hemoglobin 10.9 gm/dl (10.1-14.3); Lymphocytes # (Auto) 1.3 K/mm3 (1.2-5.4); Lymphocytes % (Auto) 14.9 % (13.4-35.0); Mean Corpuscular HGB Conc 33 % (30-34); Mean Corpuscular Volume 98 fl (79-97); Monocytes # (Auto) 0.8 K/mm3 (0.0-0.8); Monocytes % (Auto) 9.4 % (0.0-7.3); Platelet Count 237 K/mm3 (140-440); Red Blood Count 3.37 M/mm3 (3.65-5.03); Red Cell Distribution Width 14.4 % (13.2-15.2)
[2018-03-13] MEDS: ELIQUIS PO SCH ×2 (09:41→21:58)
--- NOTE | 2018-03-13 13:08 | Progress Note ---
Assessment and Plan Assessment and plan: 77 year old female with medical history significant for CVA, hypertension, A. fib presented to the emergency department with complaints of dizziness debility A. fib with RVR - Patient is on verapamil and eliquis, we will add digoxin for better rate control - Cardiology is following Debility - Patient has difficulty ambulating, and when she tries to ambulate her heart rate is going up - PT /OT evaluated her and recommended sub-acute rehabilitation Hypertension - on verapamil - We will follow and adjust medications as needed Dizziness and headache - patient was seen and evaluated by Neurology and was recommended MRI which the patient declined Bladder pain - U/a negative Disposition - Pending rehab placement History Interval history: Patient was seen and evaluated this morning, patient didn't have any complaints. Hospitalist Physical - Physical exam Narrative exam: Not in cardiopulmonary distress. The patient is morbidly obese Vital signs as documented. Head exam is unremarkable. No scleral icterus . Neck is without jugular venous distension, thyromegaly, or carotid bruits. Lungs are clear to auscultation. Cardiac exam reveals irregularly irregular rate and rhythm. Abdominal exam reveals normal bowel sounds, no masses, no organomegaly and no aortic enlargement. Extremities are nonedematous and both femoral and pedal pulses are normal. INSIDE ACCOUNT EXECUTIVE: Alert and oriented 3. Generalized weakness. - Constitutional Vitals: Temp Pulse Resp BP Pulse Ox 98.5 F 71 18 118/59 96 03/13/18 08:11 03/13/18 10:00 03/13/18 08:12 03/13/18 08:11 03/13/18 08:12 General appearance: Present: no acute distress Results - Labs CBC & Chem 7: 03/13/18 06:00 03/13/18 06:00 Labs: Laboratory Last Values WBC 9.0 K/mm3 (4.5-11.0) 03/13/18 06:00 RBC 3.37 M/mm3 (3.65-5.03) L 03/13/18 06:00 Hgb 10.9 gm/dl (10.1-14.3) 03/13/18 06:00 Hct 32.9 % (30.3-42.9) 03/13/18 06:00 MCV 98 fl (79-97) H 03/13/18 06:00 MCH 32 pg (28-32) 03/13/18 06:00 MCHC 33 % (30-34) 03/13/18 06:00 RDW 14.4 % (13.2-15.2) 03/13/18 06:00 Plt Count 237 K/mm3 (140-440) 03/13/18 06:00 Lymph % (Auto) 14.9 % (13.4-35.0) 03/13/18 06:00 [place] % (Auto) 9.4 % (0.0-7.3) H 03/13/18 06:00 Eos % (Auto) 1.3 % (0.0-4.3) 03/13/18 06:00 Baso % (Auto) 0.9 % (0.0-1.8) 03/13/18 06:00 Lymph # 1.3 K/mm3 (1.2-5.4) 03/13/18 06:00 [place] # 0.8 K/mm3 (0.0-0.8) 03/13/18 06:00 Eos # 0.1 K/mm3 (0.0-0.4) 03/13/18 06:00 Baso # 0.1 K/mm3 (0.0-0.1) 03/13/18 06:00 Add Manual Diff Complete 03/11/18 04:45 Total Counted 100 03/11/18 04:45 Seg Neutrophils % 73.5 % (40.0-70.0) H 03/13/18 06:00 Seg Neuts % (Manual) 84.0 % (40.0-70.0) H 03/11/18 04:45 Band Neutrophils % 0 % 03/11/18 04:45 Lymphocytes % (Manual) 13.0 % (13.4-35.0) L 03/11/18 04:45 Reactive Lymphs % (Man) 0 % 03/11/18 04:45 Monocytes % (Manual) 3.0 % (0.0-7.3) 03/11/18 04:45 Eosinophils % (Manual) 0 % (0.0-4.3) 03/11/18 04:45 Basophils % (Manual) 0 % (0.0-1.8) 03/11/18 04:45 Metamyelocytes % 0 % 03/11/18 04:45 Myelocytes % 0 % 03/11/18 04:45 Promyelocytes % 0 % 03/11/18 04:45 Blast Cells % 0 % 03/11/18 04:45 Nucleated RBC % Not Reportable 03/11/18 04:45 Seg Neutrophils # 6.6 K/mm3 (1.8-7.7) 03/13/18 06:00 Seg Neutrophils # Man 8.9 K/mm3 (1.8-7.7) H 03/11/18 04:45 Band Neutrophils # 0.0 K/mm3 03/11/18 04:45 Lymphocytes # (Manual) 1.4 K/mm3 (1.2-5.4) 03/11/18 04:45 Abs React Lymphs (Man) 0.0 K/mm3 03/11/18 04:45 Monocytes # (Manual) 0.3 K/mm3 (0.0-0.8) 03/11/18 04:45 Eosinophils # (Manual) 0.0 K/mm3 (0.0-0.4) 03/11/18 04:45 Basophils # (Manual) 0.0 K/mm3 (0.0-0.1) 03/11/18 04:45 Metamyelocytes # 0.0 K/mm3 03/11/18 04:45 Myelocytes # 0.0 K/mm3 03/11/18 04:45 Promyelocytes # 0.0 K/mm3 03/11/18 04:45 Blast Cells # 0.0 K/mm3 03/11/18 04:45 WBC Morphology Not Reportable 03/11/18 04:45 Hypersegmented Neuts Not Reportable 03/11/18 04:45 Hyposegmented Neuts Not Reportable 03/11/18 04:45 Hypogranular Neuts Not Reportable 03/11/18 04:45 Smudge Cells Not Reportable 03/11/18 04:45 Toxic Granulation Not Reportable 03/11/18 04:45 Toxic Vacuolation Not Reportable 03/11/18 04:45 Dohle Bodies Not Reportable 03/11/18 04:45 Pelger-Huet Anomaly Not Reportable 03/11/18 04:45 Allyn Rods Not Reportable 03/11/18 04:45 Platelet Estimate Appears normal 03/11/18 04:45 Clumped Platelets Not Reportable 03/11/18 04:45 Plt Clumps, EDTA Not Reportable 03/11/18 04:45 Large Platelets Not Reportable 03/11/18 04:45 Giant Platelets Few 03/11/18 04:45 Platelet Satelliting Not Reportable 03/11/18 04:45 Plt Morphology Comment Not Reportable 03/11/18 04:45 RBC Morphology Not Reportable 03/11/18 04:45 Dimorphic RBCs Not Reportable 03/11/18 04:45 Polychromasia 1+ 03/11/18 04:45 Hypochromasia Not Reportable 03/11/18 04:45 Poikilocytosis Not Reportable 03/11/18 04:45 Anisocytosis 1+ 03/11/18 04:45 Microcytosis Not Reportable 03/11/18 04:45 Macrocytosis Not Reportable 03/11/18 04:45 Spherocytes Not Reportable 03/11/18 04:45 Pappenheimer Bodies Not Reportable 03/11/18 04:45 Sickle Cells Not Reportable 03/11/18 04:45 Target Cells Rare 03/11/18 04:45 Tear Drop Cells Not Reportable 03/11/18 04:45 Ovalocytes 2+ 03/11/18 04:45 Helmet Cells Rare 03/11/18 04:45 [place] Bodies Not Reportable 03/11/18 04:45 [place] Rings Not Reportable 03/11/18 04:45 [place] Cells Not Reportable 03/11/18 04:45 Bite Cells Not Reportable 03/11/18 04:45 Crenated Cell Not Reportable 03/11/18 04:45 Elliptocytes 1+ 03/11/18 04:45 Acanthocytes (Spur) Not Reportable 03/11/18 04:45 Rouleaux Not Reportable 03/11/18 04:45 Hemoglobin C Crystals Not Reportable 03/11/18 04:45 Schistocytes Not Reportable 03/11/18 04:45 Malaria parasites Not Reportable 03/11/18 04:45 Herrera Bodies Not Reportable 03/11/18 04:45 Hem Pathologist Commnt No 03/11/18 04:45 Sodium 139 mmol/L (137-145) 03/13/18 06:00 Potassium 4.3 mmol/L (3.6-5.0) 03/13/18 06:00 Chloride 99.1 mmol/L (98-107) 03/13/18 06:00 Carbon Dioxide 29 mmol/L (22-30) 03/13/18 06:00 Anion Gap 15 mmol/L 03/13/18 06:00 BUN 19 mg/dL (7-17) H 03/13/18 06:00 Creatinine 0.9 mg/dL (0.7-1.2) 03/13/18 06:00 Estimated GFR > 60 ml/min 03/13/18 06:00 BUN/Creatinine Ratio 21 % 03/13/18 06:00 Glucose 101 mg/dL (65-100) H 03/13/18 06:00 POC Glucose 92 (70-105) 03/11/18 12:17 Calcium 8.6 mg/dL (8.4-10.2) 03/13/18 06:00 Phosphorus 3.70 mg/dL (2.5-4.5) 03/13/18 06:00 Total Creatine Kinase 54 units/L (30-135) 03/07/18 17:04 CK-MB (CK-2) 2.1 ng/mL (0.0-4.0) 03/07/18 17:04 CK-MB (CK-2) Rel Index 3.8 (0-4) 03/07/18 17:04 Troponin T < 0.010 ng/mL (0.00-0.029) 03/07/18 17:04 Vitamin B12 473.7 pg/mL (211-911) 03/07/18 14:53 TSH 1.090 mlU/mL (0.270-4.200) 03/07/18 14:53 Free T4 1.10 ng/dL (0.76-1.46) 03/07/18 14:53 Urine Color Yellow (Yellow) 03/11/18 16:20 Urine Turbidity Clear (Clear) 03/11/18 16:20 Urine pH 9.0 (5.0-7.0) H 03/11/18 16:20 Ur Specific [place] 1.006 (1.003-1.030) 03/11/18 16:20 Urine Protein <15 mg/dl mg/dL (Negative) 03/11/18 16:20 Urine Glucose (UA) Neg mg/dL (Negative) 03/11/18 16:20 Urine Ketones Neg mg/dL (Negative) 03/11/18 16:20 Urine Blood Neg (Negative) 03/11/18 16:20 Urine Nitrite Neg (Negative) 03/11/18 16:20 Urine Bilirubin Neg (Negative) 03/11/18 16:20 Urine Urobilinogen 4.0 mg/dL (<2.0) 03/11/18 16:20 Ur Leukocyte Esterase Neg (Negative) 03/11/18 16:20 Urine WBC (Auto) < 1.0 /HPF (0.0-6.0) 03/11/18 16:20 Urine RBC (Auto) 1.0 /HPF (0.0-6.0) 03/11/18 16:20 U Epithel Cells (Auto) 1.0 /HPF (0-13.0) 03/06/18 01:45 Urine Bacteria (Auto) 1+ /HPF (Negative) 03/11/18 16:20 Hyaline Casts 1 /LPF 03/06/18 01:45 Urine Mucus Few /HPF 03/06/18 01:45 Urine Yeast (Budding) Few /HPF 03/11/18 16:20
[2018-03-13] MEDS: LANOXIN PO SCH (16:48)
[2018-03-13] MEDS: BENADRYL PO PRN (21:58)
[2018-03-14] MEDS: PERCOCET 5/325 PO PRN ×2 (04:09→15:37)
[2018-03-14] MEDS: BENADRYL PO PRN ×2 (04:10→12:32)
[2018-03-14] MEDS: CALAN PO SCH ×2 (05:06→13:11)
[2018-03-14] MEDS: NITRO-BID 2% TP SCH (05:06)
[2018-03-14 05:48] LABS: Basophils # (Auto) 0.1 K/mm3 (0.0-0.1); Basophils % (Auto) 0.7 % (0.0-1.8); Eosinophils # (Auto) 0.1 K/mm3 (0.0-0.4); Eosinophils % (Auto) 0.6 % (0.0-4.3); Hematocrit 31.6 % (30.3-42.9); Hemoglobin 10.5 gm/dl (10.1-14.3); Lymphocytes # (Auto) 1.2 K/mm3 (1.2-5.4); Lymphocytes % (Auto) 10.4 % (13.4-35.0); Mean Corpuscular HGB Conc 33 % (30-34); Mean Corpuscular Volume 97 fl (79-97); Platelet Count 242 K/mm3 (140-440); Red Blood Count 3.26 M/mm3 (3.65-5.03); Red Cell Distribution Width 14.3 % (13.2-15.2)
[2018-03-14 06:13] LABS: Calcium 8.4 mg/dL (8.4-10.2)
--- NOTE | 2018-03-14 08:34 | Progress Note ---
Addendum entered and electronically signed by MARCI VIZCAINO MD 03/14/18 11:49: Conservative cardiac management, with medical therapy as previously outlined. Original Note: Assessment and Plan - Patient Problems (1) Atrial fibrillation Current Visit: No Status: Acute Qualifiers: Qualified Code(s): I48.1 - Persistent atrial fibrillation Plan to address problem: Atrial fibrillation, permanent rate control with verapamil and digoxin. on eliquis as an outpatient for CVA prophylaxis echocardiogram 02/21/18 reports a mildly decreased left ventricular systolic function, EF 40-45%. LHC 02/2013: no significant CAD, EF 60-65%. Plan: Continue oral anticoagulation and rate controlling agents for chronic atrial fibrillation. Subjective Date of service: 03/14/18 Principal diagnosis: acute renal failure Interval history: Patient has no cardiac complaints. Afib with a well controlled ventricular rate. Objective Vital Signs Temp Pulse Resp Resp BP Pulse Ox 03/14/18 08:22 19 03/14/18 05:10 99.4 F 87 20 100/47 90 03/14/18 05:09 18 03/14/18 05:06 100 H 123/64 03/14/18 04:09 20 03/14/18 03:43 98.9 F 99 H 20 123/64 92 03/14/18 00:02 98.7 F 85 20 129/70 94 03/13/18 23:34 18 03/13/18 22:30 97 03/13/18 21:58 91 H 129/57 03/13/18 21:00 20 94 03/13/18 20:32 98.4 F 91 H 20 129/57 94 03/13/18 19:26 101 H 03/13/18 17:39 98.4 F 89 20 125/49 92 03/13/18 16:48 98 H 03/13/18 16:32 16 03/13/18 14:11 80 122/60 03/13/18 12:43 99.0 F 79 18 124/60 93 03/13/18 10:00 71 - Physical Examination General: No Apparent Distress HEENT: Positive: PERRL Cardiac: Positive: irregularly irregular Lungs: Positive: Decreased Breath Sounds Neuro: Positive: Grossly Intact Abdomen: Positive: Soft /Rectal: Normal Prostate Extremities: Absent: edema - Labs and Meds CBC 03/14/18 Range/Units 04:59 WBC 11.3 H (4.5-11.0) K/mm3 RBC 3.26 L (3.65-5.03) M/mm3 Hgb 10.5 (10.1-14.3) gm/dl Hct 31.6 (30.3-42.9) % Plt Count 242 (140-440) K/mm3 Lymph # 1.2 (1.2-5.4) K/mm3 [place] # 1.0 H (0.0-0.8) K/mm3 Eos # 0.1 (0.0-0.4) K/mm3 Baso # 0.1 (0.0-0.1) K/mm3 Comprehensive Metabolic Panel 03/14/18 Range/Units 04:59 Sodium 139 (137-145) mmol/L Potassium 4.2 (3.6-5.0) mmol/L Chloride 100.2 (98-107) mmol/L Carbon Dioxide 27 (22-30) mmol/L BUN 21 H (7-17) mg/dL Creatinine 1.0 (0.7-1.2) mg/dL Glucose 103 H (65-100) mg/dL Calcium 8.4 (8.4-10.2) mg/dL
[2018-03-14] MEDS: ELIQUIS PO SCH (09:44)
--- NOTE | 2018-03-14 16:01 | Discharge Summary ---
Providers - Providers Date of Admission: 03/07/18 06:31 Attending physician: RADHA HUNTER MD 03/07/18 06:55 Consult to Physician [CONS] Routine Comment: Consulting Provider: STEFANO BAGLEY Physician Instructions: Reason For Exam: LUIS ENRIQUE 03/07/18 07:51 Consult to Physician [CONS] Routine Comment: Brisa is aware of consult Consulting Provider: ELIZABETH CROCKETT Physician Instructions: Reason For Exam: near syncope 03/07/18 07:53 Consult to Physician [CONS] Routine Comment: Consulting Provider: MARCI VIZCAINO Physician Instructions: Reason For Exam: afib with rvr 03/07/18 13:47 Physical Therapy Evaluation and Treat [CONS] Routine Comment: Reason For Exam: Deconditioned. S/P hip fracture, knee replacements Primary care physician: [employer] SALESPERSON Hospitalization Reason for admission: Atrial fibrillation, debility, dizziness Condition: Stable Hospital course: 77 year old female with medical history significant for CVA, hypertension, A. fib presented to the emergency department with complaints of dizziness debility A. fib with RVR; patient was on verapamil, eliquis, and digoxin for better rate control. Cardiology consult appreciated Debility; Patient has difficulty ambulating, and was not cooprative. PT /OT evaluated her and recommended sub-acute rehabilitation Hypertension; controlled Dizziness and headache; patient was seen and evaluated by Neurology and was recommended MRI which the patient declined Bladder discomfort; U/a negative Patient discharged to rehab. Patient was stable at the time of dis charge.Appropriate medications will be continued in SNF. patient was anxious and was given clonapam. Disposition: DC/[place]-03 SNF [facility] Time spent for discharge: 32 minutes - Discharge Diagnoses (1) Morbid obesity Status: Acute (2) Debility Status: Acute (3) Acute renal failure Status: Acute (4) Vertigo Status: Acute (5) Atrial fibrillation Status: Acute Qualifiers: Atrial fibrillation type: persistent Qualified Code(s): I48.1 - Persistent atrial fibrillation (6) Bilateral lower extremity edema Status: Acute (7) Obesity hypoventilation syndrome Status: Acute Core Measure Documentation - Palliative Care Palliative Care/ Comfort Measures: Not Applicable - Core Measures Any of the following diagnoses?: none Exam - Physical Exam Narrative exam: Not in cardiopulmonary distress. The patient is morbidly obese Vital signs as documented. Head exam is unremarkable. No scleral icterus . Neck is without jugular venous distension, thyromegaly, or carotid bruits. Lungs are clear to auscultation. Cardiac exam reveals irregularly irregular rate and rhythm. Abdominal exam reveals normal bowel sounds, no masses, no organomegaly and no aortic enlargement. Extremities are nonedematous and both femoral and pedal pulses are normal. OCULAR CARE TECHNICIAN: Alert and oriented 3. Generalized weakness. - Constitutional Vitals: Temp Pulse Resp BP Pulse Ox 97.2 F L 67 19 150/71 97 03/14/18 12:00 03/14/18 13:11 03/14/18 15:37 03/14/18 13:11 03/14/18 12:03 Plan Activity: advance as tolerated Weight Bearing Status: Weight Bear as Tolerated Diet: low fat, low salt Additional Instructions: F/u at [facility] if no established PCP Follow up with: PRIMARY CAREMD [Primary Care Provider] - 3-5 Days TONIA KATHLEEN MD [Staff Physician] - 14 Days Prescriptions: clonazePAM [KlonoPIN] 1 mg PO BID PRN #12 tablet PRN Reason: Anxiety oxyCODONE /ACETAMINOPHEN [Percocet 5/325 mg] 2 tab PO Q6H PRN #12 tablet PRN Reason: Pain, Moderate (4-6)
[2018-03-14 16:44] VITALS: BP 131/62
[2018-03-14] MEDS: LANOXIN PO SCH (17:27)
--- NOTE | 2018-03-15 15:26 | Query- SIRS ---
David Erickson___Beatrice Date:__03/15/2018 Wildlife And Game Protector/CDS:__Jeannette/Shane Phone#:__[phone] Exercise your independent professional judgment when responding to query. Questions asked do not imply a particular answer is desired or expected. We greatly appreciate your clarification on this issue. Clinical Documentation States: 77 year old female came to the ED for worsening dizziness and weakness. - Discharge Diagnoses (3) Acute renal failure Status: Acute Clinical Findings Show (include reference to source document): WBC: 11.7 MA: 109 RR: 20 Based on the above clinical scenario and your knowledge of the patient, please indicate the most appropriate diagnosis: [ ] SIRS (non-infectious) with Acute Organ Dysfunction [x ] SIRS (non-infectious) without Acute Organ Dysfunction [ ] Other: [ ] Unable to determine [ ] Comment/Explanation: Present on Admission: [x ] Yes (Y) [ ] Clinically undeterminable (W) [ ] No (N) Please also document response in your Progress Notes and/or Discharge Summary and indicate if the condition was present on admission. WILLIAMD
== END 2018-03-14 18:35 | DRG 308 ==
LOC: ED 23:20 → 4A 03-07 06:31
PROVIDERS: ADMIT Internal Medicine; ATTEND Internal Medicine
DX: I48.1 Persistent atrial fibrillation (principal); N17.0 Acute kidney failure with tubular necrosis; R65.10 Systemic inflammatory response syndrome (SIRS) of non-infectious origin without acute organ dysfunction; E66.2 Morbid (severe) obesity with alveolar hypoventilation; Z68.42 Body mass index [BMI] 45.0-49.9, adult; R53.81 Other malaise; R60.0 Localized edema; I11.0 Hypertensive heart disease with heart failure; I50.9 Heart failure, unspecified; M19.90 Unspecified osteoarthritis, unspecified site; F32.9 Major depressive disorder, single episode, unspecified; J44.9 Chronic obstructive pulmonary disease, unspecified; Z96.653 Presence of artificial knee joint, bilateral; E87.5 Hyperkalemia; F41.9 Anxiety disorder, unspecified; R30.0 Dysuria; Z86.73 Personal history of transient ischemic attack (TIA), and cerebral infarction without residual deficits; Z79.899 Other long term (current) drug therapy; Z88.5 Allergy status to narcotic agent
CPT/HCPCS: 36415; 70450; 70496; 70498; 71045; 74177; 76770; 80048; 81001; 82550; 82553; 82607; 82962; 84100; 84439; 84443; 84484; 85007; 85025; 87086; 87116; 90686; 93005; 93010; 93880; G0378; J0360; J0696; J2270; J2405; J2785; J7030; Q9967

== ENCOUNTER 2018-04-25 09:26 | Inpatient (IN) | payer MEDICARE ==
[2018-04-25 10:00] LABS: Basophils % (Auto) 0.6 % (0.0-1.8); Eosinophils # (Auto) 0.1 K/mm3 (0.0-0.4); Eosinophils % (Auto) 1.3 % (0.0-4.3); Hematocrit 34.7 % (30.3-42.9); Hemoglobin 11.2 gm/dl (10.1-14.3); Lymphocytes # (Auto) 1.5 K/mm3 (1.2-5.4); Lymphocytes % (Auto) 19.4 % (13.4-35.0); Mean Corpuscular HGB Conc 32 % (30-34); Mean Corpuscular Volume 98 fl (79-97); Monocytes # (Auto) 0.5 K/mm3 (0.0-0.8); Monocytes % (Auto) 5.8 % (0.0-7.3); Platelet Count 197 K/mm3 (140-440); Red Blood Count 3.53 M/mm3 (3.65-5.03); Red Cell Distribution Width 18.3 % (13.2-15.2)
[2018-04-25 10:10] LABS: BUN/Creatinine Ratio 19; Blood Urea Nitrogen 37 mg/dL (7-17); Calcium 9.2 mg/dL (8.4-10.2); Hemolysis Index 8
[2018-04-25 10:11] LABS: INR 1.78 (0.87-1.13); Partial Thromboplastin Time 35.3 Sec. (24.2-36.6)
--- NOTE | 2018-04-25 10:38 | Emergency Department Report ---
ED Altered Mental Status HPI - General Chief Complaint: Altered Mental Status Stated Complaint: UNRESPONSIVE Time Seen by Provider: 04/25/18 10:07 Source: EMS Mode of arrival: Stretcher Limitations: Altered Mental Status - History of Present Illness Initial Comments: Patient is 77-year-old morbidly obese female with history of CVA, congestive heart failure, hypertension, arthritis and depression. Patient brought to the emergency room via EMS from home after patient found with decreased responsiveness by her daughter. Daughter stated that for the last 3 days her mother became more weak and she has been vomiting. In the emergency room patient is responding only to painful stimuli, patient is not moving her extremity. Patient was last seen normal last night. MD Complaint: altered mental status, decreased responsiveness -: Last night Severity: moderate - Related Data Home Medications Medication Instructions Recorded Confirmed Last Taken AtorvaSTATin [Lipitor] 20 mg PO QHS 03/07/18 04/25/18 Unknown Baclofen [Lioresal] 10 mg PO BID 03/07/18 04/25/18 Unknown Ferrous Sulfate [Feosol 325 MG tab] 325 mg PO QDAY 03/07/18 04/25/18 Unknown traZODone [Desyrel] 100 mg PO QHS 03/07/18 04/25/18 Unknown Verapamil [Calan] 80 mg PO TID 04/25/18 04/25/18 Unknown Previous Rx's Medication Instructions Recorded Last Taken Type Apixaban [Eliquis] 5 mg PO Q12HR #60 tablet 02/24/18 Unknown Rx clonazePAM [KlonoPIN] 1 mg PO BID PRN #12 tablet 03/14/18 Unknown Rx diphenhydrAMINE [Benadryl CAP] 25 mg PO Q6H PRN capsule 03/14/18 Unknown Rx oxyCODONE /ACETAMINOPHEN [Percocet 2 tab PO Q6H PRN #12 tablet 03/14/18 Unknown Rx 5/325 mg] Allergies Allergy/AdvReac Type Severity Reaction Status Date / Time codeine Allergy Nausea Verified 11/23/13 07:18 ED Review of Systems ROS: Stated complaint: UNRESPONSIVE Other details as noted in HPI Comment: Unobtainable due to pts medical conditions ED Past Medical Hx - Past Medical History Previous Medical History?: Yes Hx Hypertension: Yes Hx CVA: Yes Hx Congestive Heart Failure: Yes Hx Arthritis: Yes Hx Psychiatric Treatment: Yes (depression, anxiety) Hx COPD: Yes Additional medical history: morbid obesity , atrial fibrillation, anemia, high cholesterol - Surgical History Past Surgical History?: Yes Additional Surgical History: bilateral knee replacement - Social History Smoking Status: Never Smoker Substance Use Type: Prescribed - Medications Home Medications: Home Medications Medication Instructions Recorded Confirmed Last Taken Type Apixaban [Eliquis] 5 mg PO Q12HR #60 tablet 02/24/18 04/25/18 Unknown Rx AtorvaSTATin [Lipitor] 20 mg PO QHS 03/07/18 04/25/18 Unknown History Baclofen [Lioresal] 10 mg PO BID 03/07/18 04/25/18 Unknown History Ferrous Sulfate [Feosol 325 MG tab] 325 mg PO QDAY 03/07/18 04/25/18 Unknown History traZODone [Desyrel] 100 mg PO QHS 03/07/18 04/25/18 Unknown History clonazePAM [KlonoPIN] 1 mg PO BID PRN #12 tablet 03/14/18 04/25/18 Unknown Rx diphenhydrAMINE [Benadryl CAP] 25 mg PO Q6H PRN capsule 03/14/18 04/25/18 Unknown Rx oxyCODONE /ACETAMINOPHEN [Percocet 2 tab PO Q6H PRN #12 tablet 03/14/18 04/25/18 Unknown Rx 5/325 mg] Verapamil [Calan] 80 mg PO TID 04/25/18 04/25/18 Unknown History ED Physical Exam - General Limitations: Altered Mental Status General appearance: in no apparent distress, obtunded - Head Head exam: Present: atraumatic, normocephalic, normal inspection - Eye Eye exam: Present: normal appearance, other (2 mm reactive) - ENT ENT exam: Present: normal exam, normal orophraynx, mucous membranes moist - Neck Neck exam: Present: normal inspection, full ROM. Absent: tenderness, meningismus, lymphadenopathy, thyromegaly - Respiratory Respiratory exam: Present: normal lung sounds bilaterally. Absent: respiratory distress, wheezes, rales, rhonchi, chest wall tenderness, accessory muscle use, decreased breath sounds, prolonged expiratory - Cardiovascular Cardiovascular Exam: Present: regular rate, normal rhythm, normal heart sounds - GI/Abdominal GI/Abdominal exam: Present: soft, normal bowel sounds. Absent: distended, tenderness, guarding, rebound, rigid, mass, bruit, pulsatile mass - Extremities Exam Extremities exam: Present: normal inspection, normal capillary refill - Neurological Exam Neurological exam: Present: altered - Skin Skin exam: Present: warm, intact, normal color - Assessment Assessment Interval: Baseline - Level of Consciousness 1a. Level of Consciousness: arousable/minor stimuli - LOC Questions 1b. LOC Questions: answers no questions correctly - LOC Command 1c. LOC Commands: performs no tasks correctly - Best Gaze 2. Best Gaze: normal - Visual 3. Visual: no visual loss - Facial Palsy 4. Facial Palsy: normal symmetrical movement - Motor Arm 5b. Motor Arm Right: no gravity effort 5a. Motor Arm Left: no gravity effort - Motor Leg 6b. Motor Leg Right: no gravity effort 6a. Motor Leg Left: no gravity effort - Limb Ataxia 7. Limb Ataxia: absent - Sensory 8. Sensory: no response/quadraplegic - Best Language 9. Best Language: coma/unresponsive - Dysarthria 10. Dysarthria: mute/anarrthric - Extinction and Inattention 11. Extinction/Inattention: no abnormality - Scoring Total Score: 24 Stroke Severity: Severe Stroke ED Course Vital Signs 04/25/18 04/25/18 04/25/18 09:37 09:40 09:46 Temperature 97.7 F Pulse Rate 88 65 54 L Respiratory 18 13 11 L Rate Blood Pressure 163/89 Blood Pressure 163/89 [Right] O2 Sat by Pulse 98 99 97 Oximetry 04/25/18 04/25/18 10:30 11:00 Temperature Pulse Rate 63 52 L Respiratory 14 11 L Rate Blood Pressure 148/62 144/61 Blood Pressure [Right] O2 Sat by Pulse 99 99 Oximetry - Reevaluation(s) Reevaluation #1: 04/25/18 12:08 Patient now is an awake, oriented 3. Patient moving all her extremities except for right lower extremity. Patient stated that this is has been weak since her last stroke. - Lab Data Result diagrams: 04/25/18 09:45 04/25/18 09:45 Lab Results 04/25/18 04/25/18 04/25/18 Range/Units 09:45 09:45 09:45 WBC 7.7 (4.5-11.0) K/mm3 RBC 3.53 L (3.65-5.03) M/mm3 Hgb 11.2 (10.1-14.3) gm/dl Hct 34.7 (30.3-42.9) % MCV 98 H (79-97) fl MCH 32 (28-32) pg MCHC 32 (30-34) % RDW 18.3 H (13.2-15.2) % Plt Count 197 (140-440) K/mm3 Lymph % (Auto) 19.4 (13.4-35.0) % [place] % (Auto) 5.8 (0.0-7.3) % Eos % (Auto) 1.3 (0.0-4.3) % Baso % (Auto) 0.6 (0.0-1.8) % Lymph # 1.5 (1.2-5.4) K/mm3 [place] # 0.5 (0.0-0.8) K/mm3 Eos # 0.1 (0.0-0.4) K/mm3 Baso # 0.0 (0.0-0.1) K/mm3 Seg Neutrophils % 72.9 H (40.0-70.0) % Seg Neutrophils # 5.6 (1.8-7.7) K/mm3 PT 21.9 H (12.2-14.9) Sec. INR 1.78 H (0.87-1.13) APTT 35.3 (24.2-36.6) Sec. Thrombin Time (15.1-19.6) Sec. Sodium 138 (137-145) mmol/L Potassium 4.4 (3.6-5.0) mmol/L Chloride 103.3 (98-107) mmol/L Carbon Dioxide 20 L (22-30) mmol/L Anion Gap 19 mmol/L BUN 37 H (7-17) mg/dL Creatinine 1.9 H (0.7-1.2) mg/dL Estimated GFR 26 ml/min BUN/Creatinine Ratio 19 % Glucose 140 H (65-100) mg/dL POC Glucose (70-105) Lactic Acid (0.7-2.0) mmol/L Calcium 9.2 (8.4-10.2) mg/dL Ammonia (25-60) umol/L Troponin T < 0.010 (0.00-0.029) ng/mL Urine Color (Yellow) Urine Turbidity (Clear) Urine pH (5.0-7.0) Ur Specific [place] (1.003-1.030) Urine Protein (Negative) mg/dL Urine Glucose (UA) (Negative) mg/dL Urine Ketones (Negative) mg/dL Urine Blood (Negative) Urine Nitrite (Negative) Urine Bilirubin (Negative) Urine Urobilinogen (<2.0) mg/dL Ur Leukocyte Esterase (Negative) Urine WBC (Auto) (0.0-6.0) /HPF Urine RBC (Auto) (0.0-6.0) /HPF U Epithel Cells (Auto) (0-13.0) /HPF Urine Bacteria (Auto) (Negative) /HPF Urine WBC Clumps /HPF Urine Mucus /HPF Urine Opiates Screen Urine Methadone Screen Acetaminophen (10.0-30.0) ug/mL Ur Barbiturates Screen Ur Phencyclidine Scrn Ur Amphetamines Screen U Benzodiazepines Scrn Urine Cocaine Screen U Marijuana (THC) Screen Drugs of Abuse Note 04/25/18 04/25/18 04/25/18 Range/Units 09:45 09:45 09:55 WBC (4.5-11.0) K/mm3 RBC (3.65-5.03) M/mm3 Hgb (10.1-14.3) gm/dl Hct (30.3-42.9) % MCV (79-97) fl MCH (28-32) pg MCHC (30-34) % RDW (13.2-15.2) % Plt Count (140-440) K/mm3 Lymph % (Auto) (13.4-35.0) % [place] % (Auto) (0.0-7.3) % Eos % (Auto) (0.0-4.3) % Baso % (Auto) (0.0-1.8) % Lymph # (1.2-5.4) K/mm3 [place] # (0.0-0.8) K/mm3 Eos # (0.0-0.4) K/mm3 Baso # (0.0-0.1) K/mm3 Seg Neutrophils % (40.0-70.0) % Seg Neutrophils # (1.8-7.7) K/mm3 PT (12.2-14.9) Sec. INR (0.87-1.13) APTT (24.2-36.6) Sec. Thrombin Time 19.6 (15.1-19.6) Sec. Sodium (137-145) mmol/L Potassium (3.6-5.0) mmol/L Chloride (98-107) mmol/L Carbon Dioxide (22-30) mmol/L Anion Gap mmol/L BUN (7-17) mg/dL Creatinine (0.7-1.2) mg/dL Estimated GFR ml/min BUN/Creatinine Ratio % Glucose (65-100) mg/dL POC Glucose 130 H (70-105) Lactic Acid (0.7-2.0) mmol/L Calcium (8.4-10.2) mg/dL Ammonia (25-60) umol/L Troponin T (0.00-0.029) ng/mL Urine Color (Yellow) Urine Turbidity (Clear) Urine pH (5.0-7.0) Ur Specific [place] (1.003-1.030) Urine Protein (Negative) mg/dL Urine Glucose (UA) (Negative) mg/dL Urine Ketones (Negative) mg/dL Urine Blood (Negative) Urine Nitrite (Negative) Urine Bilirubin (Negative) Urine Urobilinogen (<2.0) mg/dL Ur Leukocyte Esterase (Negative) Urine WBC (Auto) (0.0-6.0) /HPF Urine RBC (Auto) (0.0-6.0) /HPF U Epithel Cells (Auto) (0-13.0) /HPF Urine Bacteria (Auto) (Negative) /HPF Urine WBC Clumps /HPF Urine Mucus /HPF Urine Opiates Screen Urine Methadone Screen Acetaminophen < 5.0 L (10.0-30.0) ug/mL Ur Barbiturates Screen Ur Phencyclidine Scrn Ur Amphetamines Screen U Benzodiazepines Scrn Urine Cocaine Screen U Marijuana (THC) Screen Drugs of Abuse Note 04/25/18 04/25/18 04/25/18 Range/Units 10:20 10:20 11:14 WBC (4.5-11.0) K/mm3 RBC (3.65-5.03) M/mm3 Hgb (10.1-14.3) gm/dl Hct (30.3-42.9) % MCV (79-97) fl MCH (28-32) pg MCHC (30-34) % RDW (13.2-15.2) % Plt Count (140-440) K/mm3 Lymph % (Auto) (13.4-35.0) % [place] % (Auto) (0.0-7.3) % Eos % (Auto) (0.0-4.3) % Baso % (Auto) (0.0-1.8) % Lymph # (1.2-5.4) K/mm3 [place] # (0.0-0.8) K/mm3 Eos # (0.0-0.4) K/mm3 Baso # (0.0-0.1) K/mm3 Seg Neutrophils % (40.0-70.0) % Seg Neutrophils # (1.8-7.7) K/mm3 PT (12.2-14.9) Sec. INR (0.87-1.13) APTT (24.2-36.6) Sec. Thrombin Time (15.1-19.6) Sec. Sodium (137-145) mmol/L Potassium (3.6-5.0) mmol/L Chloride (98-107) mmol/L Carbon Dioxide (22-30) mmol/L Anion Gap mmol/L BUN (7-17) mg/dL Creatinine (0.7-1.2) mg/dL Estimated GFR ml/min BUN/Creatinine Ratio % Glucose (65-100) mg/dL POC Glucose (70-105) Lactic Acid (0.7-2.0) mmol/L Calcium (8.4-10.2) mg/dL Ammonia 40.0 (25-60) umol/L Troponin T (0.00-0.029) ng/mL Urine Color Yellow (Yellow) Urine Turbidity Cloudy (Clear) Urine pH 5.0 (5.0-7.0) Ur Specific [place] 1.025 (1.003-1.030) Urine Protein 100 mg/dl (Negative) mg/dL Urine Glucose (UA) Neg (Negative) mg/dL Urine Ketones Neg (Negative) mg/dL Urine Blood Sm (Negative) Urine Nitrite Neg (Negative) Urine Bilirubin Neg (Negative) Urine Urobilinogen 2.0 (<2.0) mg/dL Ur Leukocyte Esterase Lg (Negative) Urine WBC (Auto) > 182.0 H (0.0-6.0) /HPF Urine RBC (Auto) 20.0 (0.0-6.0) /HPF U Epithel Cells (Auto) 4.0 (0-13.0) /HPF Urine Bacteria (Auto) 3+ (Negative) /HPF Urine WBC Clumps 3+ /HPF Urine Mucus Few /HPF Urine Opiates Screen Presumptive negative Urine Methadone Screen Presumptive negative Acetaminophen (10.0-30.0) ug/mL Ur Barbiturates Screen Presumptive negative Ur Phencyclidine Scrn Presumptive negative Ur Amphetamines Screen Presumptive positive U Benzodiazepines Scrn Presumptive negative Urine Cocaine Screen Presumptive negative U Marijuana (THC) Screen Presumptive negative Drugs of Abuse Note Disclamer 04/25/18 Range/Units 11:14 WBC (4.5-11.0) K/mm3 RBC (3.65-5.03) M/mm3 Hgb (10.1-14.3) gm/dl Hct (30.3-42.9) % MCV (79-97) fl MCH (28-32) pg MCHC (30-34) % RDW (13.2-15.2) % Plt Count (140-440) K/mm3 Lymph % (Auto) (13.4-35.0) % [place] % (Auto) (0.0-7.3) % Eos % (Auto) (0.0-4.3) % Baso % (Auto) (0.0-1.8) % Lymph # (1.2-5.4) K/mm3 [place] # (0.0-0.8) K/mm3 Eos # (0.0-0.4) K/mm3 Baso # (0.0-0.1) K/mm3 Seg Neutrophils % (40.0-70.0) % Seg Neutrophils # (1.8-7.7) K/mm3 PT (12.2-14.9) Sec. INR (0.87-1.13) APTT (24.2-36.6) Sec. Thrombin Time (15.1-19.6) Sec. Sodium (137-145) mmol/L Potassium (3.6-5.0) mmol/L Chloride (98-107) mmol/L Carbon Dioxide (22-30) mmol/L Anion Gap mmol/L BUN (7-17) mg/dL Creatinine (0.7-1.2) mg/dL Estimated GFR ml/min BUN/Creatinine Ratio % Glucose (65-100) mg/dL POC Glucose (70-105) Lactic Acid 1.60 (0.7-2.0) mmol/L Calcium (8.4-10.2) mg/dL Ammonia (25-60) umol/L Troponin T (0.00-0.029) ng/mL Urine Color (Yellow) Urine Turbidity (Clear) Urine pH (5.0-7.0) Ur Specific [place] (1.003-1.030) Urine Protein (Negative) mg/dL Urine Glucose (UA) (Negative) mg/dL Urine Ketones (Negative) mg/dL Urine Blood (Negative) Urine Nitrite (Negative) Urine Bilirubin (Negative) Urine Urobilinogen (<2.0) mg/dL Ur Leukocyte Esterase (Negative) Urine WBC (Auto) (0.0-6.0) /HPF Urine RBC (Auto) (0.0-6.0) /HPF U Epithel Cells (Auto) (0-13.0) /HPF Urine Bacteria (Auto) (Negative) /HPF Urine WBC Clumps /HPF Urine Mucus /HPF Urine Opiates Screen Urine Methadone Screen Acetaminophen (10.0-30.0) ug/mL Ur Barbiturates Screen Ur Phencyclidine Scrn Ur Amphetamines Screen U Benzodiazepines Scrn Urine Cocaine Screen U Marijuana (THC) Screen Drugs of Abuse Note - EKG Data -: EKG Interpreted by Mi Rate: normal 04/25/18 12:37 Atrial fibrillation rate controlled. - Radiology Data Radiology results: report reviewed Referring Physician: JOHNNIE MOSER Patient Name: SHAI MURCAI Date of : 1940 Sex: Female Report Date: 2018-04-25 Report Status: Finalized Findings [facility] [address] [place] [address] Cat Scan Report Signed Patient: SHAI MURCIA MR#: [id number] : 1940 Acct:[id number] Age/Sex: 77 / F ADM Date: 04/25/18 Loc: ED Attending Dr: Ordering Physician: JOHNNIE MOSER Date of Service: 04/25/18 Procedure(s): CT head/brain wo con Accession Number(s): [id number] cc: JOHNNIE MOSER PROCEDURE: CT HEAD/BRAIN WO CON TECHNIQUE: CT of the Head without IV contrast. Coronal and sagittal reformatted images were provided. CT DOSE LENGTH PRODUCT: 1049.22 mGy-cm. HISTORY: neuro deficits <6hrs or sx present upon awakening COMPARISONS: None currently available. FINDINGS: There is no evidence for acute ischemia. There is no hemorrhage. There is no midline shift. There is no hydrocephalus. There is no mass. Age appropriate grover-white matter attenuation is noted. There is no calvarial fracture. The temporal bones demonstrate aerated mastoid air cells. The middle ears appear unremarkable. Paranasal sinuses are unremarkable. Globes are intact. IMPRESSION: * No acute intracranial findings. This document is electronically signed by Eligio Mccallum MD., April 25 2018 11:42:26 AM ET Transcribed By: TYM Dictated By: ELIGIO MCCALLUM MD Electronically Authenticated By: ELIGIO MCCALLUM MD Signed Date/Time: 04/25/18 1145 DD/ 1039 TD/TT: 04/25/18 1039 - Medical Decision Making Patient is 77-year-old morbidly obese female with history of CVA, congestive heart failure, hypertension, arthritis and depression. Patient brought to the emergency room via EMS from home after patient found with decreased responsiveness by her daughter. Daughter stated that for the last 3 days her mother became more weak and she has been vomiting. In the emergency room patient is responding only to painful stimuli, patient is not moving her extremity. Patient was last seen normal last night. I discussed the patient was Dr. Salmon, who is a primary care physician of the patient. He agreed to admit the patient to medical service. Critical Care Time: Yes Critical care time in (mins) excluding proc time.: 30 Critical care attestation.: If time is entered above; I have spent that time in minutes in the direct care of this critically ill patient, excluding procedure time. ED Disposition Clinical Impression: Altered mental status, Acute renal failure, UTI (urinary tract infection), Vomiting Disposition: OP ADMIT IP TO THIS HOSP Is pt being admited?: Yes Condition: Stable Referrals: CHRISTOPHER LAGUNAS [Other] - 3-5 Days
[2018-04-25] MEDS ORDERED: ZOFRAN IV ONE (10:40)
[2018-04-25] MEDS ORDERED: NACL 0.9% 1000 ML 1,000 ML IV ONE (10:41)
[2018-04-25 11:20] LABS: Benzodiazepines Screen,Urine PRESUMPTIVE NEGATIVE; Cannabinoid Screen,Urine PRESUMPTIVE NEGATIVE; Cocaine Screen,Urine PRESUMPTIVE NEGATIVE; Methadone Screen,Urine PRESUMPTIVE NEGATIVE; Opiate Screen,Urine PRESUMPTIVE NEGATIVE
[2018-04-25 11:33] LABS: Amphetamine Screen,Urine PRESUMPTIVE POSITIVE
--- NOTE | 2018-04-25 11:45 | Cat Scan Report ---
PROCEDURE: CT HEAD/BRAIN WO CON TECHNIQUE: CT of the Head without IV contrast. Coronal and sagittal reformatted images were provided. CT DOSE LENGTH PRODUCT: 1049.22 mGy-cm. HISTORY: neuro deficits <6hrs or sx present upon awakening COMPARISONS: None currently available. FINDINGS: There is no evidence for acute ischemia. There is no hemorrhage. There is no midline shift. There is no hydrocephalus. There is no mass. Age appropriate grover-white matter attenuation is noted. There is no calvarial fracture. The temporal bones demonstrate aerated mastoid air cells. The middle ears appear unremarkable. Paranasal sinuses are unremarkable. Globes are intact. IMPRESSION: * No acute intracranial findings. This document is electronically signed by Eligio Faith MD., April 25 2018 11:42:26 AM ET
[2018-04-25 12:27] LABS: Bacteria,Urine 3+ /HPF (Negative); Bilirubin,Urine NEG (Negative); Blood,Urine SM (Negative); Mucus,Urine FEW /HPF
[2018-04-25 12:29] LABS: Color,Urine Yellow (Yellow); WBC,Urine > 182.0 /HPF (0.0-6.0)
[2018-04-25] MEDS ORDERED: LEVAQUIN 500MG/100ML 500 MG/100 ML BAG IV ONE ×2 (12:35→13:31)
[2018-04-25] MEDS ORDERED: PERCOCET 5/325 ONE (14:20)
--- NOTE | 2018-04-25 14:39 | Cat Scan Report ---
CT ABDOMEN PELVIS WITHOUT CONTRAST: HISTORY: abdominal pain. COMPARISON: 03/07/18. TECHNIQUE: Helical CT in 1.25mm intervals without IV contrast. Sagittal and coronal reconstructions. FINDINGS: Lung bases: Mild cardiomegaly. Liver: Normal. Biliary system: Normal. Pancreas: Normal. Spleen: Normal. Kidneys/ureters/bladder: Normal. Adrenal glands: Normal. Aorta: Mild distal calcifications. No aneurysm. Intestines: Limited without oral contrast. No inflammation, mass or obstruction is identified. Appendix: Normal. Pelvic viscera: Normal. Ascites: None. Adenopathy: None. Musculoskeletal: Osteopenia. Moderate thoracolumbar spondylosis. No evidence for fracture or suspicious bony lesion. Severe osteoarthritic changes of the right hip. IMPRESSION: No acute process is identified in the abdomen or pelvis. Chronic findings as described above which appear stable since 03/07/18.
[2018-04-25] MEDS: PERCOCET 5/325 PO PRN (20:38)
[2018-04-26] MEDS ORDERED: ZOFRAN IV PRN (02:54)
[2018-04-26] MEDS ORDERED: TYLENOL PO PRN (02:54)
[2018-04-26] MEDS ORDERED: SODIUM CHLORIDE FLUSH SYRINGE 10 ML IV PRN (02:54)
--- NOTE | 2018-04-26 02:54 | History and Physical Report ---
History of Present Illness Date of examination: 04/25/18 Date of admission: 04/25/18 12:17 Medications and Allergies Allergies Allergy/AdvReac Type Severity Reaction Status Date / Time codeine Allergy Nausea Verified 11/23/13 07:18 Home Medications Medication Instructions Recorded Confirmed Last Taken Type Apixaban [Eliquis] 5 mg PO Q12HR #60 tablet 02/24/18 04/25/18 Unknown Rx AtorvaSTATin [Lipitor] 20 mg PO QHS 03/07/18 04/25/18 Unknown History Baclofen [Lioresal] 10 mg PO BID 03/07/18 04/25/18 Unknown History Ferrous Sulfate [Feosol 325 MG tab] 325 mg PO QDAY 03/07/18 04/25/18 Unknown History traZODone [Desyrel] 100 mg PO QHS 03/07/18 04/25/18 Unknown History oxyCODONE /ACETAMINOPHEN [Percocet 2 tab PO Q6H PRN #12 tablet 03/14/18 04/25/18 Unknown Rx 5/325 mg] Verapamil [Calan] 80 mg PO Q8HR 04/25/18 04/25/18 Unknown History clonazePAM [Klonopin] 1 mg PO BID 04/25/18 04/25/18 Unknown History Active Meds: Active Medications Oxycodone/Acetaminophen (Percocet 5/325) 1 tab PO Q6H PRN PRN Reason: Pain, Moderate (4-6) Last Admin: 04/25/18 20:38 Dose: 1 tab Documented by: Exam - Constitutional Vitals: Temp Pulse Resp BP Pulse Ox 97.3 F L 112 H 20 140/77 99 04/25/18 14:43 04/25/18 15:48 04/25/18 14:43 04/25/18 15:48 04/25/18 20:11 Results - Labs CBC & Chem 7: 04/25/18 09:45 04/25/18 09:45 Labs: Laboratory Last Values WBC 7.7 K/mm3 (4.5-11.0) 04/25/18 09:45 RBC 3.53 M/mm3 (3.65-5.03) L 04/25/18 09:45 Hgb 11.2 gm/dl (10.1-14.3) 04/25/18 09:45 Hct 34.7 % (30.3-42.9) 04/25/18 09:45 MCV 98 fl (79-97) H 04/25/18 09:45 MCH 32 pg (28-32) 04/25/18 09:45 MCHC 32 % (30-34) 04/25/18 09:45 RDW 18.3 % (13.2-15.2) H 04/25/18 09:45 Plt Count 197 K/mm3 (140-440) 04/25/18 09:45 Lymph % (Auto) 19.4 % (13.4-35.0) 04/25/18 09:45 [place] % (Auto) 5.8 % (0.0-7.3) 04/25/18 09:45 Eos % (Auto) 1.3 % (0.0-4.3) 04/25/18 09:45 Baso % (Auto) 0.6 % (0.0-1.8) 04/25/18 09:45 Lymph # 1.5 K/mm3 (1.2-5.4) 04/25/18 09:45 [place] # 0.5 K/mm3 (0.0-0.8) 04/25/18 09:45 Eos # 0.1 K/mm3 (0.0-0.4) 04/25/18 09:45 Baso # 0.0 K/mm3 (0.0-0.1) 04/25/18 09:45 Seg Neutrophils % 72.9 % (40.0-70.0) H 04/25/18 09:45 Seg Neutrophils # 5.6 K/mm3 (1.8-7.7) 04/25/18 09:45 PT 21.9 Sec. (12.2-14.9) H 04/25/18 09:45 INR 1.78 (0.87-1.13) H 04/25/18 09:45 APTT 35.3 Sec. (24.2-36.6) 04/25/18 09:45 Thrombin Time 19.6 Sec. (15.1-19.6) 04/25/18 09:45 Sodium 138 mmol/L (137-145) 04/25/18 09:45 Potassium 4.4 mmol/L (3.6-5.0) 04/25/18 09:45 Chloride 103.3 mmol/L (98-107) 04/25/18 09:45 Carbon Dioxide 20 mmol/L (22-30) L 04/25/18 09:45 Anion Gap 19 mmol/L 04/25/18 09:45 BUN 37 mg/dL (7-17) H 04/25/18 09:45 Creatinine 1.9 mg/dL (0.7-1.2) H 04/25/18 09:45 Estimated GFR 26 ml/min 04/25/18 09:45 BUN/Creatinine Ratio 19 % 04/25/18 09:45 Glucose 140 mg/dL (65-100) H 04/25/18 09:45 POC Glucose 130 (70-105) H 04/25/18 09:55 Lactic Acid 1.60 mmol/L (0.7-2.0) 04/25/18 11:14 Calcium 9.2 mg/dL (8.4-10.2) 04/25/18 09:45 Ammonia 40.0 umol/L (25-60) 04/25/18 11:14 Troponin T < 0.010 ng/mL (0.00-0.029) 04/25/18 09:45 Urine Color Yellow (Yellow) 04/25/18 10:20 Urine Turbidity Cloudy (Clear) 04/25/18 10:20 Urine pH 5.0 (5.0-7.0) 04/25/18 10:20 Ur Specific [place] 1.025 (1.003-1.030) 04/25/18 10:20 Urine Protein 100 mg/dl mg/dL (Negative) 04/25/18 10:20 Urine Glucose (UA) Neg mg/dL (Negative) 04/25/18 10:20 Urine Ketones Neg mg/dL (Negative) 04/25/18 10:20 Urine Blood Sm (Negative) 04/25/18 10:20 Urine Nitrite Neg (Negative) 04/25/18 10:20 Urine Bilirubin Neg (Negative) 04/25/18 10:20 Urine Urobilinogen 2.0 mg/dL (<2.0) 04/25/18 10:20 Ur Leukocyte Esterase Lg (Negative) 04/25/18 10:20 Urine WBC (Auto) > 182.0 /HPF (0.0-6.0) H 04/25/18 10:20 Urine RBC (Auto) 20.0 /HPF (0.0-6.0) 04/25/18 10:20 U Epithel Cells (Auto) 4.0 /HPF (0-13.0) 04/25/18 10:20 Urine Bacteria (Auto) 3+ /HPF (Negative) 04/25/18 10:20 Urine WBC Clumps 3+ /HPF 04/25/18 10:20 Urine Mucus Few /HPF 04/25/18 10:20 Urine Opiates Screen Presumptive negative 04/25/18 10:20 Urine Methadone Screen Presumptive negative 04/25/18 10:20 Acetaminophen < 5.0 ug/mL (10.0-30.0) L 04/25/18 09:45 Ur Barbiturates Screen Presumptive negative 04/25/18 10:20 Ur Phencyclidine Scrn Presumptive negative 04/25/18 10:20 Ur Amphetamines Screen Presumptive positive 04/25/18 10:20 U Benzodiazepines Scrn Presumptive negative 04/25/18 10:20 Urine Cocaine Screen Presumptive negative 04/25/18 10:20 U Marijuana (THC) Screen Presumptive negative 04/25/18 10:20 Drugs of Abuse Note Disclamer 04/25/18 10:20
[2018-04-26] MEDS ORDERED: PEPCID IV SCH (03:00)
[2018-04-26] MEDS ORDERED: NACL 0.9% 1000 ML 1,000 ML IV SCH (03:00)
[2018-04-26] MEDS: PERCOCET 5/325 PO PRN (04:43)
[2018-04-26 06:17] LABS: Calcium 8.9 mg/dL (8.4-10.2)
--- NOTE | 2018-04-26 06:51 | Event Note ---
Date: 04/25/18 See dictated H/p in reports AMS UTI Meth influence??
--- NOTE | 2018-04-26 07:24 | History and Physical Report ---
CHIEF COMPLAINT: Altered mental status for the last 2 days. HISTORY OF PRESENT ILLNESS: A 77-year-old morbidly obese female known to me from the office, very noncompliant and having chronic pain, but on tramadol, also with history of cerebrovascular accident, congestive heart failure, hypertension, arthritis, depression, comes in for decreased responsiveness. The patient brought by EMS for decreased responsiveness. The patient's daughter stated that the patient has been weak and also vomiting for the last 3 days. The patient is responding only to painful stimuli. Decreased responsiveness. PAST MEDICAL HISTORY: As mentioned, hypertension, cerebrovascular accident, congestive heart failure, depression, arthritis, low back pain, morbid obesity. Also anxiety disorder, atrial fibrillation. PAST SURGICAL HISTORY: Significant for bilateral knee replacement. SOCIAL HISTORY: Does not smoke. Questionable methamphetamine use. FAMILY HISTORY: Hypertension. CURRENT MEDICATIONS: Atorvastatin 20 mg daily, Eliquis 5 mg p.o. q. 12, baclofen 10 mg twice a day, ferrous sulfate 325 mg once a day, clonazepam 1 mg twice a day, Percocet 5/325 tid #12 tablets given in February. REVIEW OF SYSTEMS: Significant for altered sensorium, decreased responsiveness, also vomiting and chronic pain. Otherwise, review of systems negative. PHYSICAL EXAMINATION: GENERAL: Elderly female with altered sensorium. VITAL SIGNS: Blood pressure is 140/77, temperature is 97.3, pulse rate is 79. HEENT: Unremarkable. Pupils equal and reactive. NECK: Supple, no lymphadenopathy, no thyromegaly. LUNGS: Clear to auscultation and percussion. Good air entry. CARDIOVASCULAR: S1, S2 heard. No gallop, no murmur, no rub. Apical impulse in left fifth intercostal space and midclavicular line. ABDOMEN: Soft and benign. No hepatosplenomegaly. No guarding, no rigidity. Hernial orifices are normal. EXTREMITIES: Good pedal pulses. No pedal edema. CENTRAL NERVOUS SYSTEM: Decreased responsiveness. Response to painful stimuli. Breathing normally. LABORATORY DATA: Significant for white count of 7700, H and H is 11.2 and 34.7, platelet count is normal. Electrolytes are normal except for bicarb being 20, BUN and creatinine being 37 and 1.9, glucose is 140. Ammonia level is 40. Urine significant for white blood cells of more than 182. Drug screen was positive for amphetamines. IMAGING STUDIES: Abdominal CAT scan, no acute process on the abdominal CAT scan. Head CT, no acute intracranial findings. ASSESSMENT AND PLAN: 1. Acute encephalopathy secondary to multifactorial reasons including urinary tract infection, dehydration, and acute kidney injury. IV fluids and IV antibiotics for the urinary tract infection. Also, possible methamphetamine use. The patient denies, daughter denies meth use. 2. Urinary tract infection, IV ceftriaxone to be continued. 3. Acute kidney injury. IV fluids for now. 4. Atrial fibrillation. Continue Eliquis. 5. Generalized anxiety disorder. We will hold the clonazepam for now. 6. Hypertension. Continue verapamil. 7. Hyperlipidemia. Continue atorvastatin. 8. Deep venous thrombosis prophylaxis. The patient on Eliquis. No need for Lovenox. JOB# [id number] ELGIN/SHAUNA DAVIS
[2018-04-26] MEDS: SODIUM CHLORIDE FLUSH SYRINGE 10 ML IV SCH ×2 (10:32→21:42)
[2018-04-26] MEDS: ROCEPHIN/NS 2 GM/100 ML 2 GM/100 ML BAG IV SCH (10:32)
[2018-04-26] MEDS: PEPCID IV SCH (10:35)
--- NOTE | 2018-04-26 12:31 | Consultation ---
History of Present Illness Consult date: 04/26/18 Consult reason: other (NSVT) History of present illness: Patient is a 77 year old woman with a histroy of permanent atrial fibrillation, on rate control strategy and oral anticoagulation with Eliquis. A recent echocardiogram demonstrated mild left ventricle dysfunction with ejection fraction 40-45%. A cardiac catheterization done in 2013, that documents normal coronary arteries. She is admitted at this time with altered mental status and urinary tract infection. A cardiac consultation was requested for NSVT seen on telemetry. Review of telemetry strips shows short burst of non-sustained ventricular tachycardia. An EKG is atrial fibrillation with a well controlled ventricular rate. Medications and Allergies Allergies Allergy/AdvReac Type Severity Reaction Status Date / Time codeine Allergy Nausea Verified 11/23/13 07:18 Home Medications Medication Instructions Recorded Confirmed Last Taken Type Apixaban [Eliquis] 5 mg PO Q12HR #60 tablet 02/24/18 04/25/18 Unknown Rx AtorvaSTATin [Lipitor] 20 mg PO QHS 03/07/18 04/25/18 Unknown History Baclofen [Lioresal] 10 mg PO BID 03/07/18 04/25/18 Unknown History Ferrous Sulfate [Feosol 325 MG tab] 325 mg PO QDAY 03/07/18 04/25/18 Unknown History traZODone [Desyrel] 100 mg PO QHS 03/07/18 04/25/18 Unknown History oxyCODONE /ACETAMINOPHEN [Percocet 2 tab PO Q6H PRN #12 tablet 03/14/18 04/25/18 Unknown Rx 5/325 mg] Verapamil [Calan] 80 mg PO Q8HR 04/25/18 04/25/18 Unknown History clonazePAM [Klonopin] 1 mg PO BID 04/25/18 04/25/18 Unknown History Active Meds: Active Medications Acetaminophen (Tylenol) 650 mg PO Q4H PRN PRN Reason: Pain MILD(1-3)/Fever >100.5/PEDERSEN Apixaban (Eliquis) 5 mg PO Q12HR STACI; Protocol Atorvastatin Calcium (Lipitor) 20 mg PO QHS STACI Baclofen (Lioresal) 10 mg PO BID SATCI Clonazepam (Klonopin) 1 mg PO BID STACI Famotidine (Pepcid) 20 mg IV DAILY STACI Sodium Chloride (Nacl 0.9% 1000 Ml) 1,000 mls @ 75 mls/hr IV DIRECT STACI Ceftriaxone Sodium (Rocephin/Ns 2 Gm/100 Ml) 2 gm in 100 mls @ 200 mls/hr IV Q24HR STACI; Protocol Last Admin: 04/26/18 10:32 Dose: 200 mls/hr Documented by: Ondansetron HCl (Zofran) 4 mg IV Q8H PRN PRN Reason: Nausea And Vomiting Oxycodone/Acetaminophen (Percocet 5/325) 1 tab PO Q6H PRN PRN Reason: Pain, Moderate (4-6) Last Admin: 04/26/18 04:43 Dose: 1 tab Documented by: Sodium Chloride (Sodium Chloride Flush Syringe 10 Ml) 10 ml IV BID STACI Last Admin: 04/26/18 10:32 Dose: 10 ml Documented by: Sodium Chloride (Sodium Chloride Flush Syringe 10 Ml) 10 ml IV PRN PRN PRN Reason: LINE FLUSH Verapamil HCl (Calan) 80 mg PO Q8HR [facility] Physical Examination Vital Signs Temp Pulse Resp BP Pulse Ox 97.7 F 88 18 163/89 98 04/25/18 09:37 04/25/18 09:37 04/25/18 09:37 04/25/18 09:37 04/25/18 09:37 General appearance: no acute distress Cardiac: Positive: irregularly irregular Results 04/25/18 09:45 04/26/18 05:37 Comprehensive Metabolic Panel 04/26/18 Range/Units 05:37 Sodium 141 (137-145) mmol/L Potassium 4.9 (3.6-5.0) mmol/L Chloride 107.5 H (98-107) mmol/L Carbon Dioxide 20 L (22-30) mmol/L BUN 34 H (7-17) mg/dL Creatinine 1.2 (0.7-1.2) mg/dL Glucose 98 (65-100) mg/dL Calcium 8.9 (8.4-10.2) mg/dL Assessment and Plan Altered mental status UTI Acute renal failure Atrial fibrillation, permanent paroxysmal NSVT on telemetry on optimal rate control agents with verapamil. on eliquis for CVA prophylaxis Echocardiogram 01/2018 reports a mildly decreased left ventricular systolic function, EF 40-45%. [facility] 02/2013: no significant CAD, EF 60-65%.
[2018-04-26] MEDS: CALAN PO SCH ×3 (12:52→21:42)
[2018-04-26] MEDS: LIORESAL PO SCH ×2 (12:52→21:41)
--- NOTE | 2018-04-26 14:56 | Progress Note ---
Assessment and Plan Altered mental status likely from Sepsis UTI with sepsis - increase white count, AMS, elevated creatinine - noel cx, cont abx, CT head w/o any acute change Acute renal failure, vasomotor nephropathy - cont iv fluid, follow renal function Atrial fibrillation, chronic - paroxysmal NSVT on telemetry - on rate control agents with verapamil. pt is not taking any po pills today, will do metoprolol IV till takes po pill - cont on eliquis - Echocardiogram 01/2018 reports a mildly decreased left ventricular systolic function, EF 40-45%. - [facility] 02/2013: no significant CAD, EF 60-65%. Anemia, will check stool for occult blood - no active sign of bleeding Physical debility, PT eval Brief History: Patient is a 77 year old woman with a histroy of chronic atrial fibrillation, on rate control strategy and oral anticoagulation with Eliquis admitted at this time with altered mental status. her workup suggesting UTI. A recent echocardiogram demonstrated mild left ventricle dysfunction with ejection fraction 40-45%. A cardiac catheterization done in 2013, that documents normal coronary arteries. A cardiac consultation was requested for NSVT seen on telemetry. Review of telemetry strips shows short burst of non-sustained ventricular tachycardia. An EKG is atrial fibrillation with a well controlled ventricular rate. Subjective Date of service: 04/26/18 Interval history: patient seen and examined remains confused, c/o pain anywhere she was touched daughter was at bedside, updated Objective - Constitutional Vitals: Vital Signs - 12hr 04/26/18 04/26/18 04/26/18 05:06 08:31 09:05 Temperature 97.8 F Pulse Rate 78 98 H Respiratory 18 28 H Rate Respiratory 20 Rate [Head] Blood Pressure 118/76 Blood Pressure [Right] O2 Sat by Pulse 98 Oximetry 04/26/18 12:44 Temperature 98 F Pulse Rate 100 H Respiratory 14 Rate Respiratory Rate [Head] Blood Pressure Blood Pressure 113/70 [Right] O2 Sat by Pulse 99 Oximetry General appearance: Present: mild distress, obese - EENT Eyes: PERRL, EOM intact ENT: hearing intact, clear oral mucosa Ears: bilateral: normal - Neck Neck: supple, normal ROM - Respiratory Respiratory effort: normal Respiratory: bilateral: CTA - Cardiovascular Rhythm: irregularly irregular Heart Sounds: Present: S1 & S2. Absent: gallop, rub Extremities: pulses intact, No edema, normal color, Full ROM Extremity abnormal: other (multiple bruises/ecchymosis all over her UE) - Gastrointestinal General gastrointestinal: Present: soft, non-distended, normal bowel sounds - Integumentary Integumentary: clear, warm, dry - Musculoskeletal Musculoskeletal: generalized weakness - Neurologic Neurologic: moves all extremities - Psychiatric Psychiatric: memory intact, appropriate mood/affect, intact judgment & insight - Labs CBC & Chem 7: 04/28/18 12:40 04/27/18 05:45 Labs: Abnormal lab results 04/26/18 Range/Units 05:37 Chloride 107.5 H (98-107) mmol/L Carbon Dioxide 20 L (22-30) mmol/L BUN 34 H (7-17) mg/dL
[2018-04-26] MEDS: ELIQUIS PO SCH ×2 (16:54→21:41)
[2018-04-26] MEDS: D5NS 1,000 ML IV SCH (17:32)
[2018-04-26] MEDS: LOPRESSOR IV SCH (17:34)
[2018-04-26] MEDS: DESYREL PO SCH (21:42)
[2018-04-26] MEDS ORDERED: NON-FORMULARY (Clonazepam [Klonopin] 1 MG) PO SCH (22:00)
[2018-04-27] MEDS: LOPRESSOR IV SCH ×2 (01:00→06:39)
[2018-04-27 09:01] LABS: Basophils # (Auto) 0.1 K/mm3 (0.0-0.1); Basophils % (Auto) 0.7 % (0.0-1.8); Eosinophils # (Auto) 0.2 K/mm3 (0.0-0.4); Eosinophils % (Auto) 2.3 % (0.0-4.3); Hematocrit 22.8 % (30.3-42.9); Hemoglobin 7.3 gm/dl (10.1-14.3); Lymphocytes # (Auto) 1.7 K/mm3 (1.2-5.4); Lymphocytes % (Auto) 19.2 % (13.4-35.0); Mean Corpuscular HGB Conc 32 % (30-34); Mean Corpuscular Volume 96 fl (79-97); Mean Platelet Volume 8.3 fl (6-12); Monocytes # (Auto) 0.7 K/mm3 (0.0-0.8); Platelet Count 155 K/mm3 (140-440); Red Blood Count 2.37 M/mm3 (3.65-5.03); Red Cell Distribution Width 18.1 % (13.2-15.2)
[2018-04-27 09:17] LABS: Calcium 8.6 mg/dL (8.4-10.2)
[2018-04-27 09:27] LABS: Basophils # (Auto) 0.1 K/mm3 (0.0-0.1); Eosinophils # (Auto) 0.1 K/mm3 (0.0-0.4); Lymphocytes # (Auto) 1.5 K/mm3 (1.2-5.4); Lymphocytes % (Auto) 19.7 % (13.4-35.0); Mean Corpuscular HGB Conc 32 % (30-34); Mean Corpuscular Volume 96 fl (79-97); Monocytes # (Auto) 0.6 K/mm3 (0.0-0.8); Monocytes % (Auto) 7.8 % (0.0-7.3); Platelet Count 164 K/mm3 (140-440); Red Blood Count 2.44 M/mm3 (3.65-5.03)
[2018-04-27] MEDS: LIORESAL PO SCH ×2 (10:10→23:08)
[2018-04-27] MEDS: ELIQUIS PO SCH ×2 (10:10→23:07)
[2018-04-27] MEDS: ROCEPHIN/NS 2 GM/100 ML 2 GM/100 ML BAG IV SCH (10:11)
[2018-04-27] MEDS: PEPCID IV SCH (10:11)
--- NOTE | 2018-04-27 11:02 | Progress Note ---
Assessment and Plan Altered mental status UTI Acute renal failure Atrial fibrillation, permanent paroxysmal NSVT on telemetry on optimal rate control agents with verapamil. on eliquis for CVA prophylaxis Echocardiogram 01/2018 reports a mildly decreased left ventricular systolic function, EF 40-45%. [facility] 02/2013: no significant CAD, EF 60-65%. Plan: Discontinue IV metoprolol for slow afib seen on telemetry overnight. Continue verapamil for rate control of atrial fibrillation. Persantine thallium stress test tomorrow for further cardiac evaluation. Subjective Date of service: 04/27/18 Interval history: Patient is alert and oriented. She denies chest pain and shortness of breath. Afib with a controlled ventricular rate on telemetry. Objective Vital Signs Temp Pulse Resp BP BP Pulse Ox 04/27/18 09:34 97.6 F 60 18 135/48 100 04/27/18 08:47 96 04/27/18 07:47 56 L 04/27/18 03:54 97.8 F 86 20 120/51 96 04/27/18 00:25 98.3 F 92 H 18 101/54 90 04/26/18 22:00 104 H 04/26/18 21:05 100 04/26/18 19:52 98.2 F 92 H 17 148/85 100 04/26/18 17:34 102 H 140/60 04/26/18 15:54 97.9 F 95 H 24 135/65 99 04/26/18 12:44 98 F 100 H 14 113/70 99 04/26/18 12:00 97 - Physical Examination General: No Apparent Distress HEENT: Positive: PERRL Cardiac: Positive: irregularly irregular Lungs: Positive: Decreased Breath Sounds Neuro: Positive: Weakness - Labs and Meds CBC 04/27/18 04/27/18 Range/Units 04:00 07:40 WBC [employer] 8.7 RBC 2.44 L 2.37 L (3.65-5.03) M/mm3 Hgb 7.3 L D (10.1-14.3) gm/dl Hct 22.8 L D (30.3-42.9) % Plt Count 164 155 (140-440) K/mm3 Lymph # 1.5 1.7 (1.2-5.4) K/mm3 [place] # 0.6 0.7 (0.0-0.8) K/mm3 Eos # 0.1 0.2 (0.0-0.4) K/mm3 Baso # 0.1 0.1 (0.0-0.1) K/mm3 Comprehensive Metabolic Panel 04/27/18 Range/Units 05:45 Sodium 142 (137-145) mmol/L Potassium 4.5 (3.6-5.0) mmol/L Chloride 109.9 H (98-107) mmol/L Carbon Dioxide 21 L (22-30) mmol/L BUN 30 H (7-17) mg/dL Creatinine 1.0 (0.7-1.2) mg/dL Glucose 104 H (65-100) mg/dL Calcium 8.6 (8.4-10.2) mg/dL
--- NOTE | 2018-04-27 15:05 | Progress Note ---
Assessment and Plan Altered mental status likely from Sepsis UTI with sepsis - increase white count, AMS, elevated creatinine - follow cx, cont abx, CT head w/o any acute change Acute renal failure, vasomotor nephropathy - cont iv fluid, follow renal function Atrial fibrillation, chronic - paroxysmal NSVT on telemetry - on rate control agents with verapamil. stop iv metoprolol - cont on eliquis - Echocardiogram 01/2018 reports a mildly decreased left ventricular systolic function, EF 40-45%. - [facility] 02/2013: no significant CAD, EF 60-65%. Anemia, will check stool for occult blood - no active sign of bleeding Physical debility, PT eval Brief History: Patient is a 77 year old woman with a histroy of chronic atrial fibrillation, on rate control strategy and oral anticoagulation with Eliquis admitted at this time with altered mental status. her workup suggesting UTI. A recent echocardiogram demonstrated mild left ventricle dysfunction with ejection fraction 40-45%. A cardiac catheterization done in 2013, that documents normal coronary arteries. A cardiac consultation was requested for NSVT seen on telemetry. Review of telemetry strips shows short burst of non-sustained ventricular tachycardia. An EKG is atrial fibrillation with a well controlled ventricular rate. Physical exam: General appearance: Present: mild distress, obese - EENT Eyes: PERRL, EOM intact ENT: hearing intact, clear oral mucosa Ears: bilateral: normal - Neck Neck: supple, normal ROM - Respiratory Respiratory effort: normal Respiratory: bilateral: CTA - Cardiovascular Rhythm: irregularly irregular Heart Sounds: Present: S1 & S2. Absent: gallop, rub Extremities: pulses intact, No edema, normal color, Full ROM Extremity abnormal: other (multiple bruises/ecchymosis all over her UE) - Gastrointestinal General gastrointestinal: Present: soft, non-distended, normal bowel sounds - Integumentary Integumentary: clear, warm, dry - Musculoskeletal Musculoskeletal: generalized weakness - Neurologic Neurologic: moves all extremities - Psychiatric Psychiatric: memory intact, appropriate mood/affect, intact judgment & insight Subjective Date of service: 04/27/18 Interval history: patient seen and examined Mental status much improved daughter was at bedside, updated Objective - Constitutional Vitals: Vital Signs - 12hr 04/27/18 04/27/18 04/27/18 03:54 07:47 08:47 Temperature 97.8 F Pulse Rate 86 56 L Respiratory 20 Rate Blood Pressure 120/51 O2 Sat by Pulse 96 96 Oximetry 04/27/18 04/27/18 09:34 10:00 Temperature 97.6 F Pulse Rate 60 Respiratory 18 Rate Blood Pressure 135/48 O2 Sat by Pulse 100 98 Oximetry - Labs CBC & Chem 7: 04/28/18 12:40 04/27/18 05:45 Labs: Abnormal lab results 04/27/18 04/27/18 04/27/18 Range/Units 04:00 05:45 07:40 RBC 2.44 L 2.37 L (3.65-5.03) M/mm3 Hgb 7.3 L D (10.1-14.3) gm/dl Hct 22.8 L D (30.3-42.9) % RDW 18.0 H 18.1 H (13.2-15.2) % [place] % (Auto) 7.8 H 8.0 H (0.0-7.3) % Chloride 109.9 H (98-107) mmol/L Carbon Dioxide 21 L (22-30) mmol/L BUN 30 H (7-17) mg/dL Glucose 104 H (65-100) mg/dL
[2018-04-27] MEDS: CALAN PO SCH ×2 (17:42→23:07)
[2018-04-27] MEDS: PERCOCET 5/325 PO PRN ×2 (17:42→23:10)
[2018-04-27] MEDS: D5NS 1,000 ML IV SCH (17:43)
[2018-04-27] MEDS: SODIUM CHLORIDE FLUSH SYRINGE 10 ML IV SCH ×2 (17:44→23:08)
[2018-04-27] MEDS: DESYREL PO SCH (23:08)
[2018-04-28] MEDS: CALAN PO SCH ×3 (05:17→21:01)
[2018-04-28] MEDS: ROCEPHIN/NS 2 GM/100 ML 2 GM/100 ML BAG IV SCH (09:03)
[2018-04-28] MEDS: ELIQUIS PO SCH ×2 (09:04→21:00)
[2018-04-28] MEDS: SODIUM CHLORIDE FLUSH SYRINGE 10 ML IV SCH ×2 (09:04→21:00)
[2018-04-28] MEDS: LIORESAL PO SCH ×2 (09:04→21:00)
[2018-04-28] MEDS: PEPCID IV SCH (09:04)
[2018-04-28] MEDS ORDERED: LEXISCAN IV ONE (10:25)
--- NOTE | 2018-04-28 12:31 | Progress Note ---
Assessment and Plan Altered mental status - resolved UTI Acute renal failure Atrial fibrillation, permanent paroxysmal NSVT on telemetry on optimal rate control agents with verapamil. on eliquis for CVA prophylaxis Echocardiogram 01/2018 reports a mildly decreased left ventricular systolic function, EF 40-45%. [facility] 02/2013: no significant CAD, EF 60-65%. [facility] 04/2018 - no ischemia Plan: Continue current management No further cardiac testing is needed Subjective Date of service: 04/28/18 Principal diagnosis: NSVT Interval history: Lexiscan performed today - no complications Objective Vital Signs Temp Pulse Resp BP BP Pulse Ox 04/28/18 11:10 107/52 04/28/18 11:09 103/59 04/28/18 11:08 113/59 04/28/18 11:07 118/52 04/28/18 10:41 107/59 04/28/18 08:19 97 04/28/18 08:07 97.3 F L 18 108/56 04/28/18 05:08 97.6 F 94 H 20 118/50 98 04/27/18 23:52 97.8 F 20 103/40 04/27/18 23:07 68 04/27/18 22:00 53 L 04/27/18 21:53 98 04/27/18 20:28 98.2 F 20 102/51 04/27/18 20:00 98.2 F 68 20 102/51 90 04/27/18 17:42 20 04/27/18 17:35 97.2 F L 78 20 132/76 98 - Physical Examination General: No Apparent Distress HEENT: Positive: PERRL Neck: Positive: neck supple Cardiac: Positive: Reg Rate and Rhythm Lungs: Positive: Normal Exam Neuro: Positive: Weakness
[2018-04-28 13:28] LABS: Hematocrit 25.3 % (30.3-42.9); Hemoglobin 7.9 gm/dl (10.1-14.3)
--- NOTE | 2018-04-28 15:44 | Progress Note ---
Assessment and Plan Altered mental status likely from Sepsis UTI with sepsis - increase white count, AMS, elevated creatinine - follow cx, cont abx, CT head w/o any acute change Acute renal failure, vasomotor nephropathy - cont iv fluid, follow renal function Atrial fibrillation, chronic - paroxysmal NSVT on telemetry - on rate control agents with verapamil. stop iv metoprolol as now able to take po - cont on eliquis - Echocardiogram 01/2018 reports a mildly decreased left ventricular systolic function, EF 40-45%. - [facility] 02/2013: no significant CAD, EF 60-65%. Anemia, will check stool for occult blood - no active sign of bleeding, will also monitor H/h Physical debility, PT eval Brief History: Patient is a 77 year old woman with a histroy of chronic atrial fibrillation, on rate control strategy and oral anticoagulation with Eliquis admitted at this time with altered mental status. her workup suggesting UTI. A recent echocardiogram demonstrated mild left ventricle dysfunction with ejection fraction 40-45%. A cardiac catheterization done in 2013, that documents normal coronary arteries. A cardiac consultation was requested for NSVT seen on telemetry. Review of telemetry strips shows short burst of non-sustained ventricular tachycardia. An EKG is atrial fibrillation with a well controlled ventricular rate. Physical exam: General appearance: Present: mild distress, obese - EENT Eyes: PERRL, EOM intact ENT: hearing intact, clear oral mucosa Ears: bilateral: normal - Neck Neck: supple, normal ROM - Respiratory Respiratory effort: normal Respiratory: bilateral: CTA - Cardiovascular Rhythm: irregularly irregular Heart Sounds: Present: S1 & S2. Absent: gallop, rub Extremities: pulses intact, No edema, normal color, Full ROM Extremity abnormal: other (multiple bruises/ecchymosis all over her UE) - Gastrointestinal General gastrointestinal: Present: soft, non-distended, normal bowel sounds - Integumentary Integumentary: clear, warm, dry - Musculoskeletal Musculoskeletal: generalized weakness - Neurologic Neurologic: moves all extremities - Psychiatric Psychiatric: memory intact, appropriate mood/affect, intact judgment & insight Subjective Date of service: 04/28/18 Principal diagnosis: NSVT Interval history: patient seen and examined Mental status much improved Son was at bedside, updated Hb level dropping Objective - Constitutional Vitals: Vital Signs - 12hr 04/28/18 04/28/18 04/28/18 05:08 08:07 08:19 Temperature 97.6 F 97.3 F L Pulse Rate 94 H Respiratory 20 18 Rate Blood Pressure 118/50 108/56 O2 Sat by Pulse 98 97 Oximetry 04/28/18 04/28/18 04/28/18 10:41 11:07 11:08 Temperature Pulse Rate Respiratory Rate Blood Pressure 107/59 118/52 113/59 O2 Sat by Pulse Oximetry 04/28/18 04/28/18 11:09 11:10 Temperature Pulse Rate Respiratory Rate Blood Pressure 103/59 107/52 O2 Sat by Pulse Oximetry - Labs CBC & Chem 7: 04/29/18 05:21 04/29/18 05:21 Labs: Abnormal lab results 04/28/18 Range/Units 12:40 Hgb 7.9 L (10.1-14.3) gm/dl Hct 25.3 L (30.3-42.9) %
[2018-04-28] MEDS: D5NS 1,000 ML IV SCH (17:48)
[2018-04-28] MEDS: PERCOCET 5/325 PO PRN (21:00)
[2018-04-28] MEDS: DESYREL PO SCH (21:02)
--- NOTE | 2018-04-28 21:53 | Treadmill Report ---
INDICATION FOR THE PROCEDURE: Nonsustained ventricular tachycardia on telemetry. FINDINGS: There is no scintigraphic evidence of myocardial ischemia. The left ventricle is normal in size. This is a non-gated study due to underlying atrial fibrillation. CONCLUSION: No scintigraphic evidence of ischemia. This is a low risk myocardial perfusion scan associated with a 1-year cardiovascular event rate of less than 1%. [facility]# [id number] BENEDICTO/SHAUNA
[2018-04-29 05:37] LABS: Basophils % (Auto) 0.6 % (0.0-1.8); Eosinophils # (Auto) 0.1 K/mm3 (0.0-0.4); Eosinophils % (Auto) 2.1 % (0.0-4.3); Hematocrit 20.7 % (30.3-42.9); Hemoglobin 6.7 gm/dl (10.1-14.3); Lymphocytes # (Auto) 1.3 K/mm3 (1.2-5.4); Lymphocytes % (Auto) 20.7 % (13.4-35.0); Mean Corpuscular HGB Conc 32 % (30-34); Mean Corpuscular Volume 99 fl (79-97); Monocytes # (Auto) 0.4 K/mm3 (0.0-0.8); Monocytes % (Auto) 6.9 % (0.0-7.3); Platelet Count 148 K/mm3 (140-440); Red Cell Distribution Width 17.9 % (13.2-15.2)
[2018-04-29] MEDS: CALAN PO SCH ×4 (05:55→21:59)
[2018-04-29 06:02] LABS: Calcium 8.3 mg/dL (8.4-10.2)
[2018-04-29] MEDS ORDERED: NACL 0.9% 500 ML 500 ML IV NR (08:30)
--- NOTE | 2018-04-29 09:54 | XRay Report ---
LEFT HUMERUS: History: Swelling through AP and lateral views of the humerus demonstrate normal mineralization and contours for this patient's age. No destructive changes are noted and the adjacent soft tissues are unremarkable. IMPRESSION: Unremarkable left humerus.
[2018-04-29] MEDS: LIORESAL PO SCH ×2 (10:03→21:59)
[2018-04-29] MEDS: PEPCID IV SCH (10:03)
[2018-04-29] MEDS: PERCOCET 5/325 PO PRN ×2 (10:04→19:18)
[2018-04-29] MEDS: ROCEPHIN/NS 2 GM/100 ML 2 GM/100 ML BAG IV SCH (10:06)
[2018-04-29] MEDS: SODIUM CHLORIDE FLUSH SYRINGE 10 ML IV SCH ×2 (10:08→22:00)
--- NOTE | 2018-04-29 10:30 | Progress Note ---
Assessment and Plan Altered mental status -resolved UTI Acute renal failure Atrial fibrillation, permanent paroxysmal NSVT on telemetry on optimal rate control agents with verapamil. on eliquis discontinued due to severe anemia with a hemoglobin of 6.7. Echocardiogram 01/2018 reports a mildly decreased left ventricular systolic function, EF 40-45%. [facility] 02/2013: no significant CAD, EF 60-65%. MPI this admission - no ischemia Recommendations. Eliquis discontinued due to severe anemia. Consider GI evaluation. Ultimately, the patient may not be a candidate for oral anticoagulation. Subjective Date of service: 04/29/18 Principal diagnosis: NSVT Interval history: Patient denies chest pain and shortness of breath. Noted a significant drop in Hgb, 11.2 on presentation to 6.7 today. Afib with a controlled ventricular rate on telemetry. Objective Vital Signs Temp Pulse Resp BP Pulse Ox 04/29/18 08:09 98.7 F 87 20 119/61 99 04/29/18 05:55 94 H 116/63 04/29/18 04:50 98.1 F 94 H 18 116/63 96 04/29/18 00:21 97.6 F 76 20 102/49 99 04/28/18 21:39 96 04/28/18 21:01 106/53 04/28/18 20:51 97.8 F 91 H 20 98/40 99 04/28/18 17:11 98.3 F 18 106/53 04/28/18 13:27 97.3 F L 18 93/48 04/28/18 11:10 107/52 04/28/18 11:09 103/59 04/28/18 11:08 113/59 04/28/18 11:07 118/52 04/28/18 10:41 107/59 - Physical Examination General: No Apparent Distress HEENT: Positive: PERRL Neck: Positive: neck supple Neuro: Positive: Weakness - Labs and Meds CBC 04/28/18 04/29/18 Range/Units 12:40 05:21 WBC 6.2 (4.5-11.0) K/mm3 RBC 2.10 L (3.65-5.03) M/mm3 Hgb 7.9 L 6.7 L (10.1-14.3) gm/dl Hct 25.3 L 20.7 L (30.3-42.9) % Plt Count 148 (140-440) K/mm3 Lymph # 1.3 (1.2-5.4) K/mm3 [place] # 0.4 (0.0-0.8) K/mm3 Eos # 0.1 (0.0-0.4) K/mm3 Baso # 0.0 (0.0-0.1) K/mm3 Comprehensive Metabolic Panel 04/29/18 Range/Units 05:21 Sodium 143 (137-145) mmol/L Potassium 4.7 (3.6-5.0) mmol/L Chloride 112.3 H (98-107) mmol/L Carbon Dioxide 22 (22-30) mmol/L BUN 26 H (7-17) mg/dL Creatinine 1.0 (0.7-1.2) mg/dL Glucose 105 H (65-100) mg/dL Calcium 8.3 L (8.4-10.2) mg/dL
--- NOTE | 2018-04-29 14:40 | Progress Note ---
Assessment and Plan Altered mental status likely from Sepsis - CT head w/o any acute change, cont supportive care - urine was positive for amphetamine ? - pt and family denies any drug abuse UTI with sepsis - increase white count, AMS, elevated creatinine - cont abx, CT head w/o any acute change - urine cx grew Klebsiella Pneumoniae/Proteus Mirabilis, blood cx negative Acute Anemia, possible GI bleed - ordered stool for occult blood- pending - no active sign of bleeding, will also monitor H/h - hb dropped to 6.7 today, will transfuse - will obtain repeat CT abdomen/pelvis w contrast, hold eliquis Acute renal failure, vasomotor nephropathy - cont iv fluid, follow renal function, Cr improved Atrial fibrillation, chronic - paroxysmal NSVT on telemetry - on rate control agents with verapamil. s/p iv metoprolol - will hold eliquis for acute anemia - Echocardiogram 01/2018 reports a mildly decreased left ventricular systolic function, EF 40-45%. - C 02/2013: no significant CAD, EF 60-65%. - negative stress test yesterday Physical debility, PT eval Abnormal UDS - urine was positive for amphetamine ? - pt and family denies any drug abuse Brief History: Patient is a 77 year old woman with a histroy of chronic atrial fibrillation, on rate control strategy and oral anticoagulation with Eliquis admitted at this time with altered mental status. her workup suggesting UTI. A recent echocardiogram demonstrated mild left ventricle dysfunction with ejection fraction 40-45%. A cardiac catheterization done in 2013, that documents normal coronary arteries. A cardiac consultation was requested for NSVT seen on telem etry. Review of telemetry strips shows short burst of non-sustained ventricular tachycardia. An EKG is atrial fibrillation with a well controlled ventricular rate. Physical exam: General appearance: Present: mild distress, obese - EENT Eyes: PERRL, EOM intact ENT: hearing intact, clear oral mucosa Ears: bilateral: normal - Neck Neck: supple, normal ROM - Respiratory Respiratory effort: normal Respiratory: bilateral: CTA - Cardiovascular Rhythm: irregularly irregular Heart Sounds: Present: S1 & S2. Absent: gallop, rub Extremities: pulses intact, No edema, normal color, Full ROM Extremity abnormal: other (multiple bruises/ecchymosis all over her b/l UE) - Gastrointestinal General gastrointestinal: Present: soft, non-distended, normal bowel sounds - Integumentary Integumentary: clear, warm, dry - Musculoskeletal Musculoskeletal: generalized weakness - Neurologic Neurologic: moves all extremities - Psychiatric Psychiatric: memory intact, appropriate mood/affect, intact judgment & insight Subjective Date of service: 04/29/18 Principal diagnosis: NSVT Interval history: patient seen and examined Mental status much improved Hb level dropped to 6.7, no overt active bleeding Objective - Constitutional Vitals: Vital Signs - 12hr 04/29/18 04/29/18 04/29/18 04:50 05:55 08:09 Temperature 98.1 F 98.7 F Pulse Rate 94 H 94 H 87 Respiratory 18 20 Rate Blood Pressure 116/63 116/63 119/61 Blood Pressure [Right] O2 Sat by Pulse 96 99 Oximetry 04/29/18 04/29/18 04/29/18 11:55 11:56 11:57 Temperature Pulse Rate 67 89 Respiratory 20 Rate Blood Pressure 93/41 Blood Pressure [Right] O2 Sat by Pulse 98 97 Oximetry 04/29/18 11:59 Temperature Pulse Rate Respiratory Rate Blood Pressure Blood Pressure 109/49 [Right] O2 Sat by Pulse Oximetry - Labs CBC & Chem 7: 04/30/18 05:42 04/29/18 05:21 Labs: Abnormal lab results 04/29/18 04/29/18 04/29/18 Range/Units 05:21 05:21 09:11 RBC 2.10 L (3.65-5.03) M/mm3 Hgb 6.7 L (10.1-14.3) gm/dl Hct 20.7 L (30.3-42.9) % MCV 99 H (79-97) fl RDW 17.9 H (13.2-15.2) % Chloride 112.3 H (98-107) mmol/L BUN 26 H (7-17) mg/dL Glucose 105 H (65-100) mg/dL Calcium 8.3 L (8.4-10.2) mg/dL Crossmatch See Detail
--- NOTE | 2018-04-29 16:33 | Gastroenterology Consultation ---
<LEISA FONSECA - Last Filed: 04/29/18 16:48> History of Present Illness - Reason for Consult Consult date: 04/29/18 possible GI bleed (drop in H/H) Requesting physician: ANNA RDZ - History of Present Illness Patient is a 77 y/o female with PMH of chronic AFib who presented to ED with AMS. Upon admission she was found to have sepsis upon admission 2/2 UTI to which she is currently being treated, along with acute renal failure, and AFib. Head CT w/o any acute change. Urine positive for amphetamine. She had an acute drop in H/H over the past couple of days to which GI has been consulted for possible GI bleeding with Eliquis currently on hold. No acute signs of GI bleeding per nursing such as hematemesis, melena, or hematochezia. Denies abd pain or N/V. Prior GI history unknown. Upon exam, multiple bruises/ecchymosis all over her UE noted. Past History Past Medical History: arthritis, COPD, heart failure, hypertension, stroke, other (depression, anxiety, morbid obesity , atrial fibrillation, anemia, high cholesterol) Past Surgical History: Other (bilateral knee replacement) Social history: denies: smoking Medications and Allergies Allergies Allergy/AdvReac Type Severity Reaction Status Date / Time codeine Allergy Nausea Verified 11/23/13 07:18 Home Medications Medication Instructions Recorded Confirmed Last Taken Type Apixaban [Eliquis] 5 mg PO Q12HR #60 tablet 02/24/18 04/25/18 Unknown Rx AtorvaSTATin [Lipitor] 20 mg PO QHS 03/07/18 04/25/18 Unknown History Baclofen [Lioresal] 10 mg PO BID 03/07/18 04/25/18 Unknown History Ferrous Sulfate [Feosol 325 MG tab] 325 mg PO QDAY 03/07/18 04/25/18 Unknown History traZODone [Desyrel] 100 mg PO QHS 03/07/18 04/25/18 Unknown History oxyCODONE /ACETAMINOPHEN [Percocet 2 tab PO Q6H PRN #12 tablet 03/14/18 04/25/18 Unknown Rx 5/325 mg] Verapamil [Calan] 80 mg PO Q8HR 04/25/18 04/25/18 Unknown History clonazePAM [Klonopin] 1 mg PO BID 04/25/18 04/25/18 Unknown History Active Meds: Active Medications Acetaminophen (Tylenol) 650 mg PO Q4H PRN PRN Reason: Pain MILD(1-3)/Fever >100.5/PEDERSEN Atorvastatin Calcium (Lipitor) 20 mg PO QHS [facility] Last Admin: 04/28/18 21:00 Dose: 20 mg Documented by: Baclofen (Lioresal) 10 mg PO BID [facility] Last Admin: 04/29/18 10:03 Dose: 10 mg Documented by: Clonazepam (Klonopin) 1 mg PO BID [facility] Last Admin: 04/29/18 10:06 Dose: 1 mg Documented by: Famotidine (Pepcid) 20 mg IV DAILY [facility] Last Admin: 04/29/18 10:03 Dose: 20 mg Documented by: Ceftriaxone Sodium (Rocephin/Ns 2 Gm/100 Ml) 2 gm in 100 mls @ 200 mls/hr IV Q24HR [facility]; Protocol Last Admin: 04/29/18 10:06 Dose: 200 mls/hr Documented by: Dextrose/Sodium Chloride (D5ns) 1,000 mls @ 42 mls/hr IV DIRECT [facility] Last Admin: 04/28/18 17:48 Dose: 42 mls/hr Documented by: Ondansetron HCl (Zofran) 4 mg IV Q8H PRN PRN Reason: Nausea And Vomiting Oxycodone/Acetaminophen (Percocet 5/325) 1 tab PO Q6H PRN PRN Reason: Pain, Moderate (4-6) Last Admin: 04/29/18 10:04 Dose: 1 tab Documented by: Sodium Chloride (Sodium Chloride Flush Syringe 10 Ml) 10 ml IV BID [facility] Last Admin: 04/29/18 10:08 Dose: 10 ml Documented by: Sodium Chloride (Sodium Chloride Flush Syringe 10 Ml) 10 ml IV PRN PRN PRN Reason: LINE FLUSH Trazodone HCl (Desyrel) 100 mg PO QHS [facility] Last Admin: 04/28/18 21:02 Dose: 100 mg Documented by: Verapamil HCl (Calan) 80 mg PO Q8HR [facility] Last Admin: 04/29/18 05:55 Dose: 80 mg Documented by: medications reviewed/updated as required Review of Systems - Review of Systems Gastrointestinal: no abdominal pain, no nausea, no vomiting, no hematemesis, no melena, no hematochezia Exam - Constitutional Vital Signs: Temp Pulse Resp BP Pulse Ox 98.7 F 89 20 109/49 97 04/29/18 08:09 04/29/18 11:57 04/29/18 11:56 04/29/18 11:59 04/29/18 11:57 General appearance: no acute distress - Respiratory Respiratory: bilateral: diminished - Cardiovascular Rhythm: other (irregular) Extremity abnormal: other (multiple bruises/ecchymosis on UE) - Gastrointestinal General gastrointestinal: Present: soft, non-distended, normal bowel sounds - Labs CBC & Chem 7: 04/29/18 05:21 04/29/18 05:21 Lab Results: Laboratory Results - last 24 hr 04/29/18 04/29/18 04/29/18 05:21 05:21 09:11 WBC 6.2 RBC 2.10 L Hgb 6.7 L Hct 20.7 L MCV 99 H MCH 32 MCHC 32 RDW 17.9 H Plt Count 148 Lymph % (Auto) 20.7 [place] % (Auto) 6.9 Eos % (Auto) 2.1 Baso % (Auto) 0.6 Lymph # 1.3 [place] # 0.4 Eos # 0.1 Baso # 0.0 Seg Neutrophils % 69.7 Seg Neutrophils # 4.3 Sodium 143 Potassium 4.7 Chloride 112.3 H Carbon Dioxide 22 Anion Gap 13 BUN 26 H Creatinine 1.0 Estimated GFR 54 BUN/Creatinine Ratio 26 Glucose 105 H Calcium 8.3 L Blood Type O POSITIVE Antibody Screen Negative Crossmatch See Detail Assessment and Plan 1.acute anemia -H/H 6.7/20.7-transfusion PRBCs pending -continue to monitor H/H and transfuse a needed -hold blood thinning medications (ELiquis on hold) -no active signs of GI bleeding- currently HD stable -etiology unclear -abd CT pending to r/o retroperitoneal bleed -stool occult pending -no plan for scope at this time unless overt bleeding develops (will consider endoscopic evaluation based on clinical course) -iron studies in am -start on daily PPI -continue supportive care -will follow with further recommendations based on above results <KODI RUDOLPH - Last Filed: 04/29/18 18:18> Medications and Allergies Active Meds: Active Medications Acetaminophen (Tylenol) 650 mg PO Q4H PRN PRN Reason: Pain MILD(1-3)/Fever >100.5/PEDERSEN Atorvastatin Calcium (Lipitor) 20 mg PO QHS [facility] Last Admin: 04/28/18 21:00 Dose: 20 mg Documented by: Baclofen (Lioresal) 10 mg PO BID [facility] Last Admin: 04/29/18 10:03 Dose: 10 mg Documented by: Clonazepam (Klonopin) 1 mg PO BID [facility] Last Admin: 04/29/18 10:06 Dose: 1 mg Documented by: Famotidine (Pepcid) 20 mg IV DAILY [facility] Last Admin: 04/29/18 10:03 Dose: 20 mg Documented by: Ceftriaxone Sodium (Rocephin/Ns 2 Gm/100 Ml) 2 gm in 100 mls @ 200 mls/hr IV Q24HR [facility]; Protocol Last Admin: 04/29/18 10:06 Dose: 200 mls/hr Documented by: Dextrose/Sodium Chloride (D5ns) 1,000 mls @ 42 mls/hr IV DIRECT [facility] Last Admin: 04/28/18 17:48 Dose: 42 mls/hr Documented by: Ondansetron HCl (Zofran) 4 mg IV Q8H PRN PRN Reason: Nausea And Vomiting Oxycodone/Acetaminophen (Percocet 5/325) 1 tab PO Q6H PRN PRN Reason: Pain, Moderate (4-6) Last Admin: 04/29/18 10:04 Dose: 1 tab Documented by: Pantoprazole Sodium (Protonix) 40 mg IV QDAY [facility] Sodium Chloride (Sodium Chloride Flush Syringe 10 Ml) 10 ml IV BID [facility] Last Admin: 04/29/18 10:08 Dose: 10 ml Documented by: Sodium Chloride (Sodium Chloride Flush Syringe 10 Ml) 10 ml IV PRN PRN PRN Reason: LINE FLUSH Trazodone HCl (Desyrel) 100 mg PO QHS [facility] Last Admin: 04/28/18 21:02 Dose: 100 mg Documented by: Verapamil HCl (Calan) 80 mg PO Q8HR [facility] Last Admin: 04/29/18 05:55 Dose: 80 mg Documented by: Exam - Constitutional Vital Signs: Temp Pulse Resp BP Pulse Ox 98.0 F 89 20 130/62 97 04/29/18 15:49 04/29/18 11:57 04/29/18 15:49 04/29/18 15:49 04/29/18 11:57 General appearance: other (obese, multiple ecchymosis over body) - EENT Eyes: EOM intact ENT: hearing intact - Respiratory Respiratory: bilateral: CTA - Cardiovascular Rhythm: other - Integumentary Integumentary: Present: dry (ecchymosis) - Neurologic Neurological: alert and oriented x3 - Psychiatric Psychiatric: appropriate mood/affect - Labs CBC & Chem 7: 04/29/18 05:21 04/29/18 05:21 Lab Results: Laboratory Results - last 24 hr 04/29/18 04/29/18 04/29/18 05:21 05:21 09:11 WBC 6.2 RBC 2.10 L Hgb 6.7 L Hct 20.7 L MCV 99 H MCH 32 MCHC 32 RDW 17.9 H Plt Count 148 Lymph % (Auto) 20.7 [place] % (Auto) 6.9 Eos % (Auto) 2.1 Baso % (Auto) 0.6 Lymph # 1.3 [place] # 0.4 Eos # 0.1 Baso # 0.0 Seg Neutrophils % 69.7 Seg Neutrophils # 4.3 Sodium 143 Potassium 4.7 Chloride 112.3 H Carbon Dioxide 22 Anion Gap 13 BUN 26 H Creatinine 1.0 Estimated GFR 54 BUN/Creatinine Ratio 26 Glucose 105 H Calcium 8.3 L Blood Type O POSITIVE Antibody Screen Negative Crossmatch See Detail Assessment and Plan Patient seen in examined, agree with advanced practitioner's evaluation, assessment, and plan, with the following additions: patient without overt GI bleeding, but has multiple large ecchymosis all over her body which would be a potential source of drop in Hgb. Continue eval for drop in Hgb, if overt bleeding will pursue endoscopy otherwise monitor clinically and with serial CBCs.
[2018-04-29] MEDS: PROTONIX IV SCH (19:18)
--- NOTE | 2018-04-29 20:07 | Cat Scan Report ---
PROCEDURE: CT ABDOMEN PELVIS W CON TECHNIQUE: Following administration of IV contrast axial helical imaging was performed through the a bdomen and pelvis with sagittal and coronal reformatted images obtained. Delayed axial helical imagin g was also performed through the abdomen and pelvis. HISTORY: anemia- possible bleeding COMPARISONS: CT abdomen and pelvis dated April 25, 2018. The report of that study is not available for review at the time of this dictation. FINDINGS: The lung bases are without infiltrate, pneumothorax or pleural fluid collection. The heart is enlarged. The liver, spleen, pancreas and adrenal glands are unremarkable. The gallbladder is mildly distended and unremarkable. The kidneys are without evidence of hydronephrosis, renal calculi or renal mass. The bowel is normal caliber. There is colonic diverticulosis without radiographic evidence of diverticulitis. There is no evidence of pneumoperitoneum. There appears to be a small amount of free fluid or edema in the presacral soft tissues. The Hounsfie ld units are most consistent with uncomplicated fluid. This is not significantly changed in the inter edilia. There is no evidence of pneumoperitoneum. The abdominal aorta is normal caliber. There is atherosclerotic vascular calcification of the aorta a nd iliac arteries. There is no evidence of pathologic intra-abdominal adenopathy by CT size criteria. The urinary bladder is moderately distended and unremarkable. The uterus and adnexa are unremarkable. The bony structures are notable for spondylitic change of the lumbar spine with multilevel canal sten osis similar in appearance to the previous study.. There is loss of height of the L2 vertebral body consistent with compression fracture of indeterminat e age. This is also similar in appearance to the previous study of April 25, 2018. IMPRESSION: 1. No evidence of an acute intra-abdominal process. 2. Spondylitic change lumbar spine with compression fracture of the L2 vertebral body of indeterminat e age. 3. No significant change since previous CT abdomen and pelvis dated April 25, 2018. This document is electronically signed by Nereida Martinez MD., April 29 2018 08:05:20 PM ET
[2018-04-29] MEDS: DESYREL PO SCH (21:59)
[2018-04-30] MEDS: NEURONTIN PO SCH ×3 (00:13→13:54)
--- NOTE | 2018-04-30 01:12 | Progress Note ---
Assessment and Plan Altered mental status -resolved UTI Acute renal failure Atrial fibrillation, permanent paroxysmal NSVT on telemetry on optimal rate control agents with verapamil. on eliquis discontinued due to severe anemia with a hemoglobin of 6.7. Echocardiogram 01/2018 reports a mildly decreased left ventricular systolic function, EF 40-45%. C 02/2013: no significant CAD, EF 60-65%. MPI this admission - no ischemia Recommendations. Eliquis discontinued due to severe anemia Continue rate control with verapamil Keep K>4 and Mg>2 Subjective Date of service: 04/30/18 Principal diagnosis: NSVT Interval history: No acute events. Resting comfortably. No chest pain or SOB. No further runs of NSVT seen on telemetry Objective Vital Signs Temp Pulse Resp BP BP Pulse Ox 04/30/18 00:09 98.1 F 87 18 121/68 96 04/29/18 23:04 98.3 F 93 H 20 128/68 98 04/29/18 22:21 98.3 F 84 20 148/80 100 04/29/18 21:59 82 141/72 100 04/29/18 21:58 98.5 F 94 H 20 147/72 99 04/29/18 21:51 98.3 F 82 20 141/72 99 04/29/18 21:21 98.5 F 82 20 147/72 100 04/29/18 21:17 98.2 F 93 H 20 157/77 100 04/29/18 20:51 98.2 F 87 20 157/77 99 04/29/18 20:21 98.3 F 87 18 141/72 100 04/29/18 20:18 20 04/29/18 20:06 97.9 F 89 18 154/68 99 04/29/18 20:05 89 18 154/68 99 04/29/18 15:49 98.0 F 20 130/62 04/29/18 11:59 109/49 04/29/18 11:57 89 97 04/29/18 11:56 67 20 98 04/29/18 11:55 93/41 04/29/18 11:04 20 04/29/18 10:00 100 04/29/18 08:09 98.7 F 87 20 119/61 99 04/29/18 05:55 94 H 116/63 04/29/18 04:50 98.1 F 94 H 18 116/63 96 - Physical Examination General: No Apparent Distress HEENT: Positive: PERRL Neck: Positive: neck supple Neuro: Positive: Weakness - Labs and Meds CBC 04/29/18 Range/Units 05:21 WBC 6.2 (4.5-11.0) K/mm3 RBC 2.10 L (3.65-5.03) M/mm3 Hgb 6.7 L (10.1-14.3) gm/dl Hct 20.7 L (30.3-42.9) % Plt Count 148 (140-440) K/mm3 Lymph # 1.3 (1.2-5.4) K/mm3 [place] # 0.4 (0.0-0.8) K/mm3 Eos # 0.1 (0.0-0.4) K/mm3 Baso # 0.0 (0.0-0.1) K/mm3 Comprehensive Metabolic Panel 04/29/18 Range/Units 05:21 Sodium 143 (137-145) mmol/L Potassium 4.7 (3.6-5.0) mmol/L Chloride 112.3 H (98-107) mmol/L Carbon Dioxide 22 (22-30) mmol/L BUN 26 H (7-17) mg/dL Creatinine 1.0 (0.7-1.2) mg/dL Glucose 105 H (65-100) mg/dL Calcium 8.3 L (8.4-10.2) mg/dL
[2018-04-30] MEDS: CALAN PO SCH ×3 (05:52→22:26)
[2018-04-30 06:31] LABS: Basophils % (Auto) 0.4 % (0.0-1.8); Eosinophils # (Auto) 0.1 K/mm3 (0.0-0.4); Eosinophils % (Auto) 2.2 % (0.0-4.3); Hematocrit 22.6 % (30.3-42.9); Hemoglobin 7.5 gm/dl (10.1-14.3); Lymphocytes # (Auto) 1.4 K/mm3 (1.2-5.4); Lymphocytes % (Auto) 23.8 % (13.4-35.0); Mean Corpuscular HGB Conc 33 % (30-34); Mean Corpuscular Volume 95 fl (79-97); Monocytes # (Auto) 0.4 K/mm3 (0.0-0.8); Monocytes % (Auto) 7.4 % (0.0-7.3); Platelet Count 141 K/mm3 (140-440); Red Blood Count 2.37 M/mm3 (3.65-5.03); Red Cell Distribution Width 17.2 % (13.2-15.2)
[2018-04-30] MEDS: ROCEPHIN/NS 2 GM/100 ML 2 GM/100 ML BAG IV SCH (09:32)
[2018-04-30] MEDS: LIORESAL PO SCH ×2 (09:34→22:26)
[2018-04-30] MEDS: PROTONIX IV SCH (09:34)
[2018-04-30] MEDS: PEPCID IV SCH (09:36)
[2018-04-30] MEDS: SODIUM CHLORIDE FLUSH SYRINGE 10 ML IV SCH ×2 (09:36→22:26)
--- NOTE | 2018-04-30 10:32 | Gastroenterology Progress Note ---
Assessment and Plan GI: pt w/ anemia w/o further signs active bleeding - Eloquis on hold - discussed w/ pt who refuses any GI eval including EGD/colon at this time - continue PPI qd - follow h/h, transfuse as needed - concerned for pt mental status given initial presents w/ mental status change though seems stable this am, await primary team input - will follow for now Subjective Date of service: 04/30/18 Principal diagnosis: NSVT Interval history: - no GI complaints overnight. Denies signs bleeding Objective - Constitutional Vitals: Temp Pulse Resp BP Pulse Ox 98.4 F 87 20 129/82 100 04/30/18 08:32 04/30/18 08:32 04/30/18 08:32 04/30/18 08:32 04/30/18 08:32 General appearance: no acute distress - EENT Eyes: PERRL - Neck Neck: supple - Respiratory Respiratory: bilateral: CTA - Cardiovascular Rhythm: regular Heart Sounds: Present: S1 & S2 - Gastrointestinal General gastrointestinal: Present: soft, non-tender, non-distended - Labs CBC & Chem 7: 04/30/18 05:42 04/29/18 05:21 Labs: Laboratory Results - last 24 hr 04/29/18 04/30/18 09:11 05:42 WBC 5.9 RBC 2.37 L Hgb 7.5 L Hct 22.6 L MCV 95 MCH 32 MCHC 33 RDW 17.2 H Plt Count 141 Lymph % (Auto) 23.8 [place] % (Auto) 7.4 H Eos % (Auto) 2.2 Baso % (Auto) 0.4 Lymph # 1.4 [place] # 0.4 Eos # 0.1 Baso # 0.0 Seg Neutrophils % 66.2 Seg Neutrophils # 3.9 Blood Type O POSITIVE Antibody Screen Negative Crossmatch See Detail
--- NOTE | 2018-04-30 13:13 | Progress Note ---
Assessment and Plan Altered mental status likely from Sepsis - CT head w/o any acute change, cont supportive care - urine was positive for amphetamine ? - pt and family denies any drug abuse UTI with sepsis - increase white count, AMS, elevated creatinine - cont abx, CT head w/o any acute change - urine cx grew Klebsiella Pneumoniae/Proteus Mirabilis, blood cx negative Acute Anemia, likely subcutaneous bleed - ordered stool for occult blood- pending - no active sign of bleeding, will also monitor H/h - hb dropped to 6.7, s/p one unit PRBC transfuse - no acute findings on CT abdomen/pelvis w contrast, cont to hold eliquis - Consulted GI, recommended medical Mx Acute renal failure, vasomotor nephropathy - cont iv fluid, follow renal function, Cr improved Atrial fibrillation, chronic - paroxysmal NSVT on telemetry - on rate control agents with verapamil. s/p iv metoprolol - on hold eliquis for acute anemia - Echocardiogram 01/2018 reports a mildly decreased left ventricular systolic function, EF 40-45%. - C 02/2013: no significant CAD, EF 60-65%. - negative stress test Physical debility, PT eval Abnormal UDS - urine was positive for amphetamine ? - pt and family denies any drug abuse Brief History: Patient is a 77 year old woman with a histroy of chronic atrial fibrillation, on rate control strategy and oral anticoagulation with Eliquis admitted at this time with altered mental status. her workup suggesting UTI. A recent echocardiogram demonstrated mild left ventricle dysfunction with ejection fra ction 40-45%. A cardiac catheterization done in 2013, that documents normal coronary arteries. A cardiac consultation was requested for NSVT seen on telemetry. Review of telemetry strips shows short burst of non-sustained ventricular tachycardia. An EKG is atrial fibrillation with a well controlled ventricular rate. Physical exam: General appearance: Present: mild distress, obese - EENT Eyes: PERRL, EOM intact ENT: hearing intact, clear oral mucosa Ears: bilateral: normal - Neck Neck: supple, normal ROM - Respiratory Respiratory effort: normal Respiratory: bilateral: CTA - Cardiovascular Rhythm: irregularly irregular Heart Sounds: Present: S1 & S2. Absent: gallop, rub Extremities: pulses intact, No edema, normal color, Full ROM Extremity abnormal: other (multiple bruises/ecchymosis all over her b/l UE) - Gastrointestinal General gastrointestinal: Present: soft, non-distended, normal bowel sounds - Integumentary Integumentary: clear, warm, dry - Musculoskeletal Musculoskeletal: generalized weakness - Neurologic Neurologic: moves all extremities - Psychiatric Psychiatric: memory intact, appropriate mood/affect, intact judgment & insight Subjective Date of service: 04/30/18 Principal diagnosis: NSVT Interval history: patient seen and examined Mental status much improved no overt active bleeding s/p transfusion yesterday Objective - Constitutional Vitals: Vital Signs - 12hr 04/30/18 04/30/18 04/30/18 04:37 05:52 08:32 Temperature 98.5 F 98.4 F Pulse Rate 94 H 94 H 87 Respiratory 18 20 Rate Blood Pressure 137/75 137/75 129/82 O2 Sat by Pulse 97 100 Oximetry 04/30/18 11:55 Temperature 98.0 F Pulse Rate 82 Respiratory 21 Rate Blood Pressure 150/86 O2 Sat by Pulse 96 Oximetry - Labs CBC & Chem 7: 05/01/18 04:39 05/01/18 04:39 Labs: Abnormal lab results 04/29/18 04/30/18 Range/Units 09:11 05:42 RBC 2.37 L (3.65-5.03) M/mm3 Hgb 7.5 L (10.1-14.3) gm/dl Hct 22.6 L (30.3-42.9) % RDW 17.2 H (13.2-15.2) % [place] % (Auto) 7.4 H (0.0-7.3) % Crossmatch See Detail
[2018-04-30] MEDS: D5NS 1,000 ML IV SCH (13:53)
--- NOTE | 2018-04-30 22:32 | Progress Note ---
Assessment and Plan Altered mental status -resolved UTI Acute renal failure Atrial fibrillation, permanent paroxysmal NSVT on telemetry on optimal rate control agents with verapamil. on eliquis discontinued due to severe anemia with a hemoglobin of 6.7. Echocardiogram 01/2018 reports a mildly decreased left ventricular systolic function, EF 40-45%. C 02/2013: no significant CAD, EF 60-65%. MPI this admission - no ischemia Recommendations. Eliquis discontinued due to severe anemia Continue rate controlled with verapamil. Continue current medical therapy. Keep K>4 and Mg>2 Subjective Date of service: 05/01/18 Principal diagnosis: NSVT Interval history: No acute events. Resting comfortably. No chest pain or SOB. No further runs of NSVT seen on telemetry Objective Vital Signs Temp Pulse Resp Resp BP Pulse Ox 04/30/18 22:26 88 137/80 04/30/18 21:02 98 04/30/18 19:10 98.4 F 88 16 137/80 90 04/30/18 17:19 98.0 F 51 L 20 131/76 78 L 04/30/18 13:53 82 150/86 04/30/18 11:55 98.0 F 82 21 150/86 96 04/30/18 10:00 97 H 04/30/18 08:32 98.4 F 87 20 129/82 100 04/30/18 05:52 94 H 137/75 04/30/18 04:37 98.5 F 94 H 18 137/75 97 04/30/18 00:15 20 04/30/18 00:09 98.1 F 87 18 121/68 96 04/29/18 23:04 98.3 F 93 H 20 128/68 98 - Physical Examination General: No Apparent Distress HEENT: Positive: PERRL Neck: Positive: neck supple Neuro: Positive: Weakness - Labs and Meds CBC 04/30/18 Range/Units 05:42 WBC 5.9 (4.5-11.0) K/mm3 RBC 2.37 L (3.65-5.03) M/mm3 Hgb 7.5 L (10.1-14.3) gm/dl Hct 22.6 L (30.3-42.9) % Plt Count 141 (140-440) K/mm3 Lymph # 1.4 (1.2-5.4) K/mm3 [place] # 0.4 (0.0-0.8) K/mm3 Eos # 0.1 (0.0-0.4) K/mm3 Baso # 0.0 (0.0-0.1) K/mm3
[2018-05-01] MEDS: DESYREL PO SCH ×2 (01:27→21:13)
[2018-05-01] MEDS: NEURONTIN PO SCH ×4 (01:27→21:13)
[2018-05-01 05:03] LABS: Hematocrit 23.2 % (30.3-42.9); Hemoglobin 7.6 gm/dl (10.1-14.3)
[2018-05-01 05:25] LABS: BUN/Creatinine Ratio 30; Blood Urea Nitrogen 21 mg/dL (7-17); Calcium 8.5 mg/dL (8.4-10.2); Hemolysis Index 9
[2018-05-01] MEDS: CALAN PO SCH ×3 (05:57→21:13)
[2018-05-01] MEDS: PROTONIX IV SCH (09:32)
[2018-05-01] MEDS: ROCEPHIN/NS 2 GM/100 ML 2 GM/100 ML BAG IV SCH (09:32)
[2018-05-01] MEDS: PEPCID IV SCH (09:33)
[2018-05-01] MEDS: LIORESAL PO SCH ×2 (09:33→21:13)
[2018-05-01] MEDS: SODIUM CHLORIDE FLUSH SYRINGE 10 ML IV SCH ×2 (09:33→21:14)
--- NOTE | 2018-05-01 11:08 | Progress Note ---
Assessment and Plan Altered mental status likely from Sepsis - CT head w/o any acute change, cont supportive care - urine was positive for amphetamine ? - pt and family denies any drug abuse UTI with sepsis - increase white count, AMS, elevated creatinine - cont abx, CT head w/o any acute change - urine cx grew Klebsiella Pneumoniae/Proteus Mirabilis, blood cx negative - will stop abx tomorrow Acute Anemia, likely subcutaneous bleed - ordered stool for occult blood- pending - no active sign of bleeding, will also monitor H/h - hb dropped to 6.7, s/p one unit PRBC transfuse - no acute findings on CT abdomen/pelvis w contrast, cont to hold eliquis - Consulted GI, recommended medical Mx Acute renal failure, vasomotor nephropathy - cont iv fluid, follow renal function, Cr improved Atrial fibrillation, chronic - paroxysmal NSVT on telemetry - on rate control agents with verapamil. s/p iv metoprolol - on hold eliquis for acute anemia - Echocardiogram 01/2018 reports a mildly decreased left ventricular systolic function, EF 40-45%. - C 02/2013: no significant CAD, EF 60-65%. - negative stress test Physical debility, s/p PT eval , recommended SUSAN Abnormal UDS - urine was positive for amphetamine ? - pt and family denies any drug abuse Brief History: Patient is a 77 year old woman with a histroy of chronic atrial fibrillation, on rate control strategy and oral anticoagulation with Eliquis admitted at this time with altered mental status. her workup suggesting UTI. A recent echocardiogram demonstrated mild left ventricle dysfunction with ejection fraction 40-45%. A cardiac catheterization done in 2013, that documents normal coronary arteries. A cardiac consultation was requested for NSVT seen on telem etry. Review of telemetry strips shows short burst of non-sustained ventricular tachycardia. An EKG is atrial fibrillation with a well controlled ventricular rate. Physical exam: General appearance: Present: mild distress, obese - EENT Eyes: PERRL, EOM intact ENT: hearing intact, clear oral mucosa Ears: bilateral: normal - Neck Neck: supple, normal ROM - Respiratory Respiratory effort: normal Respiratory: bilateral: CTA - Cardiovascular Rhythm: irregularly irregular Heart Sounds: Present: S1 & S2. Absent: gallop, rub Extremities: pulses intact, No edema, normal color, Full ROM Extremity abnormal: other (multiple bruises/ecchymosis all over her b/l UE) - Gastrointestinal General gastrointestinal: Present: soft, non-distended, normal bowel sounds - Integumentary Integumentary: clear, warm, dry - Musculoskeletal Musculoskeletal: generalized weakness - Neurologic Neurologic: moves all extremities - Psychiatric Psychiatric: memory intact, appropriate mood/affect, intact judgment & insight Subjective Date of service: 05/01/18 Principal diagnosis: NSVT Interval history: patient seen and examined Mental status much improved no overt active bleeding waiting for placement Objective - Constitutional Vitals: Vital Signs - 12hr 04/30/18 04/30/18 05/01/18 22:26 23:36 04:49 Temperature 98.5 F 98.3 F Pulse Rate 88 73 70 Respiratory 18 18 Rate Blood Pressure 137/80 130/73 127/68 O2 Sat by Pulse 99 99 Oximetry 05/01/18 05/01/18 05:57 08:41 Temperature 98.5 F Pulse Rate 70 71 Respiratory 19 Rate Blood Pressure 127/68 148/72 O2 Sat by Pulse 100 Oximetry - Labs CBC & Chem 7: 05/01/18 04:39 05/01/18 04:39 Labs: Abnormal lab results 05/01/18 05/01/18 Range/Units 04:39 04:39 Hgb 7.6 L (10.1-14.3) gm/dl Hct 23.2 L (30.3-42.9) % Chloride 107.7 H (98-107) mmol/L BUN 21 H (7-17) mg/dL Glucose 108 H (65-100) mg/dL
[2018-05-01] MEDS: D5NS 1,000 ML IV SCH (14:30)
--- NOTE | 2018-05-01 15:37 | Gastroenterology Progress Note ---
Assessment and Plan GI: pt w/o signs bleeding - h/h stable - no signs GI bleeding - pt defers any scope at this time - no need further GI input at this time, call if needed Subjective Date of service: 05/01/18 Principal diagnosis: NSVT Interval history: - no signs bleeding overnight Objective - Constitutional Vitals: Temp Pulse Resp BP Pulse Ox 98.3 F 95 H 18 136/71 100 05/01/18 12:00 05/01/18 14:24 05/01/18 12:00 05/01/18 14:24 05/01/18 08:41 General appearance: no acute distress - EENT Eyes: PERRL - Respiratory Respiratory: bilateral: CTA - Cardiovascular Rhythm: regular Heart Sounds: Present: S1 & S2 - Gastrointestinal General gastrointestinal: Present: soft, non-tender, non-distended - Labs CBC & Chem 7: 05/01/18 04:39 05/01/18 04:39 Labs: Laboratory Results - last 24 hr 05/01/18 05/01/18 04:39 04:39 Hgb 7.6 L Hct 23.2 L Sodium 141 Potassium 4.6 Chloride 107.7 H Carbon Dioxide 25 Anion Gap 13 BUN 21 H Creatinine 0.7 Estimated GFR > 60 BUN/Creatinine Ratio 30 Glucose 108 H Calcium 8.5
[2018-05-01] MEDS: PERCOCET 5/325 PO PRN (21:13)
[2018-05-02 01:31] LABS: Hematocrit 22.4 % (30.3-42.9); Hemoglobin 7.6 gm/dl (10.1-14.3); Mean Corpuscular HGB Conc 34 % (30-34); Mean Corpuscular Volume 96 fl (79-97); Platelet Count 177 K/mm3 (140-440); Red Blood Count 2.34 M/mm3 (3.65-5.03); Red Cell Distribution Width 16.9 % (13.2-15.2)
[2018-05-02] MEDS: CALAN PO SCH ×3 (06:23→21:17)
[2018-05-02] MEDS: NEURONTIN PO SCH ×3 (06:23→21:17)
[2018-05-02] MEDS: PERCOCET 5/325 PO PRN ×3 (06:23→21:17)
[2018-05-02] MEDS: ROCEPHIN/NS 2 GM/100 ML 2 GM/100 ML BAG IV SCH (09:15)
[2018-05-02] MEDS: PEPCID IV SCH (09:16)
[2018-05-02] MEDS: SODIUM CHLORIDE FLUSH SYRINGE 10 ML IV SCH ×2 (09:17→21:19)
[2018-05-02] MEDS: PROTONIX IV SCH (09:17)
[2018-05-02] MEDS: LIORESAL PO SCH ×2 (09:17→21:17)
--- NOTE | 2018-05-02 11:34 | Progress Note ---
Assessment and Plan Altered mental status -resolved UTI Acute renal failure Atrial fibrillation, permanent paroxysmal NSVT on telemetry on optimal rate control agents with verapamil. on eliquis discontinued due to severe anemia with a hemoglobin of 6.7. Echocardiogram 01/2018 reports a mildly decreased left ventricular systolic function, EF 40-45%. LHC 02/2013: no significant CAD, EF 60-65%. MPI this admission - no ischemia Subjective Date of service: 05/02/18 Principal diagnosis: NSVT Interval history: Patient denies chest pain and shortness of breath. Afib with a controlled ventricular rate on telemetry. Objective Vital Signs Temp Pulse Resp BP BP Pulse Ox 05/02/18 07:42 97.2 F L 18 128/52 05/02/18 04:04 98.2 F 76 20 116/58 98 05/02/18 00:38 20 98 05/01/18 23:24 99.5 F 85 20 121/61 97 05/01/18 22:15 97 05/01/18 22:00 87 05/01/18 21:13 79 112/63 05/01/18 19:10 98.6 F 18 112/63 71 L 05/01/18 16:00 98.1 F 71 18 113/63 05/01/18 15:29 73 100 05/01/18 14:24 95 H 136/71 05/01/18 13:14 154/85 05/01/18 12:00 98.3 F 64 18 154/85 - Physical Examination General: No Apparent Distress HEENT: Positive: PERRL Neck: Positive: trachea midline Cardiac: Positive: irregularly irregular Lungs: Positive: Decreased Breath Sounds Neuro: Positive: Weakness - Labs and Meds CBC 05/02/18 Range/Units 00:30 WBC 7.7 (4.5-11.0) K/mm3 RBC 2.34 L (3.65-5.03) M/mm3 Hgb 7.6 L (10.1-14.3) gm/dl Hct 22.4 L (30.3-42.9) % Plt Count 177 (140-440) K/mm3
--- NOTE | 2018-05-02 14:36 | Event Note ---
Date: 05/02/[address] Carolina and had a discussion about anticoagulation for atrial fib as patient's CHADS2 score is very high. Patient already has seen by GI and per all documentation and clinical history that was obtained from Daughter patient was less responsive on admission and no reported stroke like symptoms presented on admission. Her CT head did not show any acute change on admission and no sign of old CVA. Had 2 CT abdomen/pelvis with/without contrast w/o any major findings. her stress test was normal. 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 Will consult neuro and reconsult GI to further evaluate the patient in order to have a safe discharge plan.
--- NOTE | 2018-05-02 15:18 | Progress Note ---
Assessment and Plan Altered mental status/Acute metabolic encephalopathy - likely from Sepsis and LUIS ENRIQUE - CT head w/o any acute change, has chronic vascular changes - reviewed old CT/MRI/CTA head neck showed no sign of old CVA/infract - cont supportive care - urine was positive for amphetamine ? - pt and family denies any drug abuse - cardiology recommended neurology eval - consulted Dr Shaw, ordered MRI brain UTI with sepsis - increase white count, AMS, elevated creatinine - CT head w/o any acute change - urine cx grew Klebsiella Pneumoniae/Proteus Mirabilis, blood cx negative - treated with abx for a week, will stop abx today Acute Anemia, likely subcutaneous bleed - ordered stool for occult blood- pending - no active sign of bleeding, will also monitor H/h - hb dropped to 6.7, s/p one unit PRBC transfusion on 04/29 - no acute findings on CT abdomen/pelvis w/wo contrast, cont to hold eliquis - Consulted GI, planned for EGD tomorrow Acute renal failure, vasomotor nephropathy - cont iv fluid, follow renal function, Cr improved Atrial fibrillation, chronic - paroxysmal NSVT on telemetry - on rate control agents with verapamil. s/p iv metoprolol - on hold eliquis for acute anemia - Echocardiogram 01/2018 reports a mildly decreased left ventricular systolic function, EF 40-45%. - C 02/2013: no significant CAD, EF 60-65%. - negative stress test on this admission - cardiology recommended neuro and GI eval before restarting AC Physical debility, s/p PT eval , recommended SUSAN Abnormal UDS - urine was positive for amphetamine ? - pt and family denies any drug abuse Brief History: Patient is a 77 year old woman with a histroy of chronic atrial fibrillation, on rate control strategy and oral anticoagulation with Eliquis admitted at this time with altered mental status. her workup suggesting UTI and LUIS ENRIQUE. A recent echocardiogram demonstrated mild left ventricle dysfunction with ejection fraction 40-45%. A cardiac catheterization done in 2013, that documents normal coronary arteries. A cardiac consultation was requested for NSVT seen on telemetry. Developed anemia, transfused 1 unit PRBC. GI consulted for EGD/colonoscopy. Neuro consulted per cardiology recommendation to r/o TIA on admission. Physical exam: General appearance: Present: mild distress, obese - EENT Eyes: PERRL, EOM intact ENT: hearing intact, clear oral mucosa Ears: bilateral: normal - Neck Neck: supple, normal ROM - Respiratory Respiratory effort: normal Respiratory: bilateral: CTA - Cardiovascular Rhythm: irregularly irregular Heart Sounds: Present: S1 & S2. Absent: gallop, rub Extremities: pulses intact, No edema, normal color, Full ROM Extremity abnormal: other (multiple bruises/ecchymosis all over her b/l UE) - Gastrointestinal General gastrointestinal: Present: soft, non-distended, normal bowel sounds - Integumentary Integumentary: clear, warm, dry - Musculoskeletal Musculoskeletal: generalized weakness - Neurologic Neurologic: moves all extremities - Psychiatric Psychiatric: memory intact, appropriate mood/affect, intact judgment & insight Subjective Date of service: 05/02/18 Principal diagnosis: NSVT Interval history: patient seen and examined Mental status much improved no overt active bleeding Plan for EGD tomorrow Objective - Constitutional Vitals: Vital Signs - 12hr 05/02/18 05/02/18 05/02/18 04:04 07:42 11:41 Temperature 98.2 F 97.2 F L 98.3 F Pulse Rate 76 Respiratory 20 18 18 Rate Blood Pressure 116/58 128/52 115/72 O2 Sat by Pulse 98 Oximetry 05/02/18 13:58 Temperature Pulse Rate 83 Respiratory Rate Blood Pressure 115/72 O2 Sat by Pulse Oximetry - Labs CBC & Chem 7: 05/02/18 00:30 05/01/18 04:39 Labs: Abnormal lab results 05/02/18 Range/Units 00:30 RBC 2.34 L (3.65-5.03) M/mm3 Hgb 7.6 L (10.1-14.3) gm/dl Hct 22.4 L (30.3-42.9) % MCH 33 H (28-32) pg RDW 16.9 H (13.2-15.2) %
--- NOTE | 2018-05-02 16:01 | Gastroenterology Progress Note ---
Assessment and Plan 1.acute anemia -H/H 7.6/22.4- stable s/p transfusion PRBCs -continue to monitor H/H and transfuse a needed -Eliquis on hold -no active signs of GI bleeding- currently HD stable -abd CT to r/o retroperitoneal bleed negative -etiology unclear -re-discussed option of endoscopic evaluation with EGD/colonoscopy given need for chcf anticoagulation with patient to include risks vs benefits and she is now agreeable (previously refused) -will schedule for EGD/colonoscopy tomorrow (spoke with neurology with clearance given) -clear liquids diet now then NPO after MN -continue PPI and supportive care -will follow Subjective Date of service: 05/02/18 Principal diagnosis: anemia Interval history: GI has been re-consulted on this patient per cardiology request for endoscopic evaluation of anemia prior to resuming anticoagulation for A-Fib. Patient resting in bed w/o acute distress or active signs of bleeding. Denies abd pain or N/V. Objective - Constitutional Vitals: Temp Pulse Resp BP Pulse Ox 98.3 F 83 18 115/72 98 05/02/18 11:41 05/02/18 13:58 05/02/18 11:41 05/02/18 13:58 05/02/18 04:04 General appearance: no acute distress, obese - Respiratory Respiratory: bilateral: diminished - Cardiovascular Rhythm: other (irregular) - Gastrointestinal General gastrointestinal: Present: soft, non-tender, non-distended, normal bowel sounds, other (+obese) - Labs CBC & Chem 7: 05/02/18 00:30 05/01/18 04:39 Labs: Laboratory Results - last 24 hr 05/02/18 00:30 WBC 7.7 RBC 2.34 L Hgb 7.6 L Hct 22.4 L MCV 96 MCH 33 H MCHC 34 RDW 16.9 H Plt Count 177
[2018-05-02] MEDS ORDERED: GOLYTELY PO ONE ×2 (17:00→20:00)
--- NOTE | 2018-05-02 17:13 | Consultation ---
History of Present Illness Consult date: 05/02/18 Requesting physician: ANNA RDZ Reason for Consult: Evaluate for stroke History of present illness: Patient is 77-year-old rt. handed morbidly obese female with history of congestive heart failure, atrial fibrillation, hypertension, arthritis and depression. The Patient was brought to the emergency room via EMS from home on 04/26/18 after she was found with decreased responsiveness by her daughter. Daughter noted that she had become more weak over the previous 3 days. Because of arthritis, multiple knee replacements and ligament surgeries, the patient remains in bed. She was found on admission to have urosepsis and with treatment returned to baseline. She has no recollection of the events around the time of admission. We are asked to consult concerning the possibility of the pt. having a stroke. The pt. takes Eloquis for stroke prevention with the dx of atrial fibrillation. She has also developed ecchymoses over both upper extremities, which appear to be spontaneous, with subcutaneous nodules. For this reason her Eloquis has been stopped. A CT brain on admission revealed no evidence of st ro[place]. Today the pt. notes difficulty moving her left leg. Past History Past Medical History: atrial fib, arthritis, COPD, heart failure, hypertension, stroke, other (depression, anxiety, morbid obesity , atrial fibrillation, anemia, high cholesterol) Past Surgical History: Other (bilateral knee replacement) Social history: lives with family. denies: smoking Medications and Allergies Allergies Allergy/AdvReac Type Severity Reaction Status Date / Time codeine Allergy Nausea Verified 11/23/13 07:18 Home Medications Medication Instructions Recorded Confirmed Last Taken Type Apixaban [Eliquis] 5 mg PO Q12HR #60 tablet 02/24/18 04/25/18 Unknown Rx AtorvaSTATin [Lipitor] 20 mg PO QHS 03/07/18 04/25/18 Unknown History Baclofen [Lioresal] 10 mg PO BID 03/07/18 04/25/18 Unknown History Ferrous Sulfate [Feosol 325 MG tab] 325 mg PO QDAY 03/07/18 04/25/18 Unknown History traZODone [Desyrel] 100 mg PO QHS 03/07/18 04/25/18 Unknown History oxyCODONE /ACETAMINOPHEN [Percocet 2 tab PO Q6H PRN #12 tablet 03/14/18 04/25/18 Unknown Rx 5/325 mg] Verapamil [Calan] 80 mg PO Q8HR 04/25/18 04/25/18 Unknown History clonazePAM [Klonopin] 1 mg PO BID 04/25/18 04/25/18 Unknown History Active Meds: Active Medications Acetaminophen (Tylenol) 650 mg PO Q4H PRN PRN Reason: Pain MILD(1-3)/Fever >100.5/PEDERSEN Atorvastatin Calcium (Lipitor) 20 mg PO QHS [facility] Last Admin: 05/01/18 21:13 Dose: 20 mg Documented by: Baclofen (Lioresal) 10 mg PO BID [facility] Last Admin: 05/02/18 09:17 Dose: 10 mg Documented by: Clonazepam (Klonopin) 1 mg PO BID [facility] Last Admin: 05/02/18 09:16 Dose: 1 mg Documented by: Gabapentin (Neurontin) 300 mg PO Q8HR [facility] Last Admin: 05/02/18 13:59 Dose: 300 mg Documented by: Ceftriaxone Sodium (Rocephin/Ns 2 Gm/100 Ml) 2 gm in 100 mls @ 200 mls/hr IV Q24HR [facility]; Protocol Last Admin: 05/02/18 09:15 Dose: 200 mls/hr Documented by: Dextrose/Sodium Chloride (D5ns) 1,000 mls @ 42 mls/hr IV DIRECT [facility] Last Admin: 05/01/18 14:30 Dose: 42 mls/hr Documented by: Ondansetron HCl (Zofran) 4 mg IV Q8H PRN PRN Reason: Nausea And Vomiting Oxycodone/Acetaminophen (Percocet 5/325) 1 tab PO Q6H PRN PRN Reason: Pain, Moderate (4-6) Last Admin: 05/02/18 13:59 Dose: 1 tab Documented by: Pantoprazole Sodium (Protonix) 40 mg PO DAILY [facility] Polyethylene Glycol/Electrolytes (Golytely) 4,000 ml PO ONCE ONE Stop: 05/02/18 17:01 Sodium Chloride (Sodium Chloride Flush Syringe 10 Ml) 10 ml IV BID [facility] Last Admin: 05/02/18 09:17 Dose: 10 ml Documented by: Sodium Chloride (Sodium Chloride Flush Syringe 10 Ml) 10 ml IV PRN PRN PRN Reason: LINE FLUSH Trazodone HCl (Desyrel) 100 mg PO QHS [facility] Last Admin: 05/01/18 21:13 Dose: 100 mg Documented by: Verapamil HCl (Calan) 80 mg PO Q8HR [facility] Last Admin: 05/02/18 13:58 Dose: 80 mg Documented by: Physical Examination - Vital Signs Vital Signs: Vital Signs Temp Pulse Resp BP Pulse Ox 97.7 F 88 18 163/89 98 04/25/18 09:37 04/25/18 09:37 04/25/18 09:37 04/25/18 09:37 04/25/18 09:37 - Physical Exam Narrative exam: General - Obese female lying in bed, in no acute distress. Neurological exam - Speech fluent, no dysarthria. 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 V-1 thru V-3 intact bilaterally, face symmetric. hearing intact, tongue midline. Motor - symmetric in upper extremities - poor effort. LLE - cannot lift leg because of ligament damage as well as hip arthritis. RLE - unable to lift off the bed. ant. tibialis and gastrocs are 5/5 and symmetric. tenderness of prox. muscles in left leg. Reflexes - trace throughout. Sensory - intact touch bilaterally. Cerebellar - intact FTN, FFM, and Zeferino. - Assessment Assessment Interval: Baseline - Level of Consciousness 1a. Level of Consciousness: arousable/minor stimuli - LOC Questions 1b. LOC Questions: answers no questions correctly - LOC Command 1c. LOC Commands: performs no tasks correctly - Best Gaze 2. Best Gaze: normal - Visual 3. Visual: no visual loss - Facial Palsy 4. Facial Palsy: normal symmetrical movement - Motor Arm 5b. Motor Arm Right: no gravity effort - Motor Leg 6a. Motor Leg Left: no gravity effort - Limb Ataxia 7. Limb Ataxia: absent - Sensory 8. Sensory: no response/quadraplegic - Best Language 9. Best Language: coma/unresponsive - Dysarthria 10. Dysarthria: mute/anarrthric - Extinction and Inattention 11. Extinction/Inattention: no abnormality Results - Laboratory Findings CBC and BMP: 05/02/18 00:30 05/01/18 04:39 Abnormal Lab Findings: Abnormal Labs 04/25/18 04/25/18 04/25/18 09:45 09:45 09:45 RBC 3.53 L Hgb Hct MCV 98 H MCH RDW 18.3 H Garza % (Auto) Seg Neutrophils % 72.9 H PT 21.9 H INR 1.78 H Chloride Carbon Dioxide 20 L BUN 37 H Creatinine 1.9 H Glucose 140 H POC Glucose Calcium Urine WBC (Auto) Acetaminophen Crossmatch 04/25/18 04/25/18 04/25/18 09:45 09:55 10:20 RBC Hgb Hct MCV MCH RDW Garza % (Auto) Seg Neutrophils % PT INR Chloride Carbon Dioxide BUN Creatinine Glucose POC Glucose 130 H Calcium Urine WBC (Auto) > 182.0 H Acetaminophen < 5.0 L Crossmatch 04/26/18 04/27/18 04/27/18 05:37 04:00 05:45 RBC 2.44 L Hgb Hct MCV MCH RDW 18.0 H Garza % (Auto) 7.8 H Seg Neutrophils % PT INR Chloride 107.5 H 109.9 H Carbon Dioxide 20 L 21 L BUN 34 H 30 H Creatinine Glucose 104 H POC Glucose Calcium Urine WBC (Auto) Acetaminophen Crossmatch 04/27/18 04/28/18 04/29/18 07:40 12:40 05:21 RBC 2.37 L 2.10 L Hgb 7.3 L D 7.9 L 6.7 L Hct 22.8 L D 25.3 L 20.7 L MCV 99 H MCH RDW 18.1 H 17.9 H Garza % (Auto) 8.0 H Seg Neutrophils % PT INR Chloride Carbon Dioxide BUN Creatinine Glucose POC Glucose Calcium Urine WBC (Auto) Acetaminophen Crossmatch 04/29/18 04/29/18 04/30/18 05:21 09:11 05:42 RBC 2.37 L Hgb 7.5 L Hct 22.6 L MCV MCH RDW 17.2 H Garza % (Auto) 7.4 H Seg Neutrophils % PT INR Chloride 112.3 H Carbon Dioxide BUN 26 H Creatinine Glucose 105 H POC Glucose Calcium 8.3 L Urine WBC (Auto) Acetaminophen Crossmatch See Detail 05/01/18 05/01/18 05/02/18 04:39 04:39 00:30 RBC 2.34 L Hgb 7.6 L 7.6 L Hct 23.2 L 22.4 L MCV MCH 33 H RDW 16.9 H Garza % (Auto) Seg Neutrophils % PT INR Chloride 107.7 H Carbon Dioxide BUN 21 H Creatinine Glucose 108 H POC Glucose Calcium Urine WBC (Auto) Acetaminophen Crossmatch Assessment and Plan 77 year old female with multiple medical problems and stroke risk factors. Thus far imaging has not confirmed the presence of a stroke. Her exam is difficult because of poor effort, obesity, and chronic musculoskeletal changes in her lower extremities. Question if Cushings could be a possibility in her diagnosis. Plan - MRI scan of the brain.
[2018-05-02] MEDS: DESYREL PO SCH (21:17)
[2018-05-03 06:09] LABS: INR 1.07 (0.87-1.13)
[2018-05-03] MEDS: CALAN PO SCH ×3 (06:34→21:15)
[2018-05-03] MEDS: NEURONTIN PO SCH ×3 (06:34→21:14)
[2018-05-03] MEDS: PROTONIX PO SCH (11:10)
[2018-05-03] MEDS: LIORESAL PO SCH ×2 (11:10→21:14)
[2018-05-03] MEDS: SODIUM CHLORIDE FLUSH SYRINGE 10 ML IV SCH ×2 (11:11→21:14)
--- NOTE | 2018-05-03 11:57 | Progress Note ---
Assessment and Plan Altered mental status -resolved UTI Acute renal failure Atrial fibrillation, permanent paroxysmal NSVT on telemetry on optimal rate control agents with verapamil. on eliquis discontinued due to severe anemia with a hemoglobin of 6.7 this admission. Echocardiogram 01/2018 reports a mildly decreased left ventricular systolic function, EF 40-45%. LHC 02/2013: no significant CAD, EF 60-65%. MPI this admission - no ischemia Recommendations: Neurological workup is in process to determine if patient's presenting symptoms represented a TIA or completely attributable to the ongoing UTI. GI workup is in process of the patient's anemia and future candidacy for continued oral anticoagulation. Continue rate controlling agents for permanent atrial fibrillation. Subjective Date of service: 05/03/18 Principal diagnosis: NSVT Interval history: Patient denies chest pain, shortness of breath and palpitations. Afib with a well controlled ventricular rate on telemetry. Objective Vital Signs Temp Pulse Resp BP Pulse Ox 05/03/18 09:51 99 05/03/18 07:53 73 120/60 99 05/03/18 04:58 98.0 F 18 107/58 05/02/18 22:00 77 20 05/02/18 21:17 127 H 05/02/18 20:24 98.0 F 20 127/76 05/02/18 20:00 100 05/02/18 16:36 97.5 F L 18 131/72 05/02/18 13:58 83 115/72 - Physical Examination General: No Apparent Distress HEENT: Positive: PERRL Neck: Positive: trachea midline Cardiac: Positive: irregularly irregular Lungs: Positive: Decreased Breath Sounds Neuro: Positive: Weakness - Labs and Meds Coagulation 05/03/18 Range/Units 05:29 PT 14.6 (12.2-14.9) Sec. INR 1.07 (0.87-1.13)
[2018-05-03] MEDS: NACL 0.9% 1000 ML 1,000 ML IV SCH ×2 (13:55→21:16)
--- NOTE | 2018-05-03 13:56 | Anesthesia Day of Surgery ---
Anesthesia Day of Surgery - Day of Surgery Patient Examined: Yes Patient H&P Reviewed: Yes Patient is NPO: Yes Beta Blockers: No Cardiac Clearance: No
--- NOTE | 2018-05-03 13:57 | Anesthesia Consultation ---
Anesthesia Consult and Med Hx Date of service: 05/03/18 - Airway Anesthetic Teeth Evaluation: Good ROM Head & Neck: Adequate Mental/Hyoid Distance: Adequate Mallampati Class: Class IV Intubation Access Assessment: Possibly Difficult - Pulmonary Exam CTA: Yes - Cardiac Exam Cardiac Exam: No Murmur - Pre-Operative Health Status ASA Pre-Surgery Classification: ASA3 Proposed Anesthetic Plan: MAC - Pulmonary SOB: Yes COPD: Yes Hx Sleep Apnea: Yes - Cardiovascular System Hx Hypertension: Yes - Central Nervous System CVA: Yes Hx Psychiatric Problems: Yes - Hematic Hx Anemia: Yes - Other Systems Hx Cancer: No Hx Obesity: Yes
[2018-05-03] MEDS ORDERED: VERSED ONE (14:03)
[2018-05-03] MEDS ORDERED: DIPRIVAN 10 MG/ML IV ONE (14:03)
--- NOTE | 2018-05-03 14:49 | Progress Note ---
Assessment and Plan Assessment and plan: Altered mental status/Acute metabolic encephalopathy - likely from Sepsis and LUIS ENRIQUE - CT head w/o any acute change, has chronic vascular changes - reviewed old CT/MRI/CTA head neck showed no sign of old CVA/infract - cont supportive care - urine was positive for amphetamine ? - pt and family denies any drug abuse - cardiology recommended neurology eval - consulted Dr Shaw, ordered MRI brain - patient refused to do MRI unless completely sedated UTI with sepsis - increase white count, AMS, elevated creatinine - CT head w/o any acute change - urine cx grew Klebsiella Pneumoniae/Proteus Mirabilis, blood cx negative - treated with abx for a week, will stop abx today Acute Anemia, likely subcutaneous bleed - ordered stool for occult blood- pending - no active sign of bleeding, will also monitor H/h - hb dropped to 6.7, s/p one unit PRBC transfusion on 04/29 - no acute findings on CT abdomen/pelvis w/wo contrast, cont to hold eliquis - GI following - For EGD/Colonoscopy today Acute renal failure, vasomotor nephropathy - cont iv fluid, follow renal function, Cr improved Atrial fibrillation, chronic - paroxysmal NSVT on telemetry - on rate control agents with verapamil. s/p iv metoprolol - on hold eliquis for acute anemia - Echocardiogram 01/2018 reports a mildly decreased left ventricular systolic function, EF 40-45%. - [facility] 02/2013: no significant CAD, EF 60-65%. - negative stress test on this admission - cardiology recommended neuro and GI eval before restarting AC Physical debility, s/p PT eval , recommended SUSAN Abnormal UDS - urine was positive for amphetamine ? - pt and family denies any drug abuse History Interval history: Patient is a 77 year old woman with a histroy of chronic atrial fibrillation, on rate control strategy and oral anticoagulation with Eliquis admitted at this time with altered mental status. her workup suggesting UTI and LUIS ENRIQUE. A recent echocardiogram demonstrated mild left ventricle dysfunction with ejection fraction 40-45%. A cardiac catheterization done in 2013, that documents normal coronary arteries. A cardiac consultation was requested for NSVT seen on telemetry. Developed anemia, transfused 1 unit PRBC. GI consulted for EGD/colonoscopy. Neuro consulted per cardiology recommendation to r/o TIA on admission. For EGD, colonoscopy today Refusing MRI unless she is completely sedated Hospitalist Physical - Physical exam Narrative exam: GEN: Not in acute distress, lying in bed,morbidly obese HEENT: Normocephalic, atraumatic, Neck: supple, No JVD Lungs: Clear to auscultation bilat, no crackles, no wheeze Abd:soft, non tender, non distended, normal bowel sounds Ext: No edema, no clubbing, no cyanosis Neuro:Awake,alert, no focal signs Psych: normal mood - Constitutional Vitals: Temp Pulse Resp BP Pulse Ox 98.1 F 83 18 138/63 100 05/03/18 13:50 05/03/18 13:50 05/03/18 13:50 05/03/18 13:50 05/03/18 13:50 Results - Labs CBC & Chem 7: 05/02/18 00:30 05/01/18 04:39 Labs: Laboratory Last Values WBC 7.7 K/mm3 (4.5-11.0) 05/02/18 00:30 RBC 2.34 M/mm3 (3.65-5.03) L 05/02/18 00:30 Hgb 7.6 gm/dl (10.1-14.3) L 05/02/18 00:30 Hct 22.4 % (30.3-42.9) L 05/02/18 00:30 MCV 96 fl (79-97) 05/02/18 00:30 MCH 33 pg (28-32) H 05/02/18 00:30 MCHC 34 % (30-34) 05/02/18 00:30 RDW 16.9 % (13.2-15.2) H 05/02/18 00:30 Plt Count 177 K/mm3 (140-440) 05/02/18 00:30 Lymph % (Auto) 23.8 % (13.4-35.0) 04/30/18 05:42 [place] % (Auto) 7.4 % (0.0-7.3) H 04/30/18 05:42 Eos % (Auto) 2.2 % (0.0-4.3) 04/30/18 05:42 Baso % (Auto) 0.4 % (0.0-1.8) 04/30/18 05:42 Lymph # 1.4 K/mm3 (1.2-5.4) 04/30/18 05:42 [place] # 0.4 K/mm3 (0.0-0.8) 04/30/18 05:42 Eos # 0.1 K/mm3 (0.0-0.4) 04/30/18 05:42 Baso # 0.0 K/mm3 (0.0-0.1) 04/30/18 05:42 Seg Neutrophils % 66.2 % (40.0-70.0) 04/30/18 05:42 Seg Neutrophils # 3.9 K/mm3 (1.8-7.7) 04/30/18 05:42 PT 14.6 Sec. (12.2-14.9) 05/03/18 05:29 INR 1.07 (0.87-1.13) 05/03/18 05:29 APTT 35.3 Sec. (24.2-36.6) 04/25/18 09:45 Thrombin Time 19.6 Sec. (15.1-19.6) 04/25/18 09:45 Sodium 141 mmol/L (137-145) 05/01/18 04:39 Potassium 4.6 mmol/L (3.6-5.0) 05/01/18 04:39 Chloride 107.7 mmol/L (98-107) H 05/01/18 04:39 Carbon Dioxide 25 mmol/L (22-30) 05/01/18 04:39 Anion Gap 13 mmol/L 05/01/18 04:39 BUN 21 mg/dL (7-17) H 05/01/18 04:39 Creatinine 0.7 mg/dL (0.7-1.2) 05/01/18 04:39 Estimated GFR > 60 ml/min 05/01/18 04:39 BUN/Creatinine Ratio 30 % 05/01/18 04:39 Glucose 108 mg/dL (65-100) H 05/01/18 04:39 POC Glucose 130 (70-105) H 04/25/18 09:55 Hemoglobin A1c 4.9 % (4-6) 04/26/18 05:37 Lactic Acid 1.60 mmol/L (0.7-2.0) 04/25/18 11:14 Calcium 8.5 mg/dL (8.4-10.2) 05/01/18 04:39 Magnesium 1.80 mg/dL (1.7-2.3) 04/26/18 13:08 Ammonia 40.0 umol/L (25-60) 04/25/18 11:14 Troponin T < 0.010 ng/mL (0.00-0.029) 04/27/18 06:15 TSH 1.610 mlU/mL (0.270-4.200) 04/26/18 15:10 Free T4 1.31 ng/dL (0.76-1.46) 04/26/18 15:10 Urine Color Yellow (Yellow) 04/25/18 10:20 Urine Turbidity Cloudy (Clear) 04/25/18 10:20 Urine pH 5.0 (5.0-7.0) 04/25/18 10:20 Ur Specific [place] 1.025 (1.003-1.030) 04/25/18 10:20 Urine Protein 100 mg/dl mg/dL (Negative) 04/25/18 10:20 Urine Glucose (UA) Neg mg/dL (Negative) 04/25/18 10:20 Urine Ketones Neg mg/dL (Negative) 04/25/18 10:20 Urine Blood Sm (Negative) 04/25/18 10:20 Urine Nitrite Neg (Negative) 04/25/18 10:20 Urine Bilirubin Neg (Negative) 04/25/18 10:20 Urine Urobilinogen 2.0 mg/dL (<2.0) 04/25/18 10:20 Ur Leukocyte Esterase Lg (Negative) 04/25/18 10:20 Urine WBC (Auto) > 182.0 /HPF (0.0-6.0) H 04/25/18 10:20 Urine RBC (Auto) 20.0 /HPF (0.0-6.0) 04/25/18 10:20 U Epithel Cells (Auto) 4.0 /HPF (0-13.0) 04/25/18 10:20 Urine Bacteria (Auto) 3+ /HPF (Negative) 04/25/18 10:20 Urine WBC Clumps 3+ /HPF 04/25/18 10:20 Urine Mucus Few /HPF 04/25/18 10:20 Urine Opiates Screen Presumptive negative 04/25/18 10:20 Urine Methadone Screen Presumptive negative 04/25/18 10:20 Acetaminophen < 5.0 ug/mL (10.0-30.0) L 04/25/18 09:45 Ur Barbiturates Screen Presumptive negative 04/25/18 10:20 Ur Phencyclidine Scrn Presumptive negative 04/25/18 10:20 Ur Amphetamines Screen Presumptive positive 04/25/18 10:20 U Benzodiazepines Scrn Presumptive negative 04/25/18 10:20 Urine Cocaine Screen Presumptive negative 04/25/18 10:20 U Marijuana (THC) Screen Presumptive negative 04/25/18 10:20 Drugs of Abuse Note Disclamer 04/25/18 10:20 Blood Type O POSITIVE 04/29/18 09:11 Antibody Screen Negative 04/29/18 09:11 Crossmatch See Detail 04/29/18 09:11 Nutrition/Malnutrition Assess - Dietary Evaluation Nutrition/Malnutrition Findings: Nutrition Notes Start: 05/02/18 14:17 Freq: Status: Active Protocol: Document 05/02/18 14:17 RM (Rec: 05/02/18 14:19 RM [id number]) Nutrition Notes Need for Assessment generated from: LOS Initial or Follow up Brief Note Current Diagnosis Acute Kidney Injury,Sepsis, Hypertension,Heart Failure, Hyperlipidemia Other Pertinent Diagnosis Depression,Anxiety disorder, UTI Current Diet Cardiac Labs/Tests Reviewed Pertinent Medications Reviewed Height 5 ft 5 in Weight 123.7 kg [place] Body Weight (kg) 56.81 BMI 45.3 Subjective/Other Information Screened for LOS. Pt stated that her appetite is okay and she eats most of her meals. Burn Absent Trauma Absent Nutrition Intervention Revisit per MD consult or patient Sign Off request:
[2018-05-03] MEDS ORDERED: WATER FOR IRRIG STERILE IR ONE (14:54)
--- NOTE | 2018-05-03 15:34 | Post Operative Note ---
Pre-op diagnosis: anemia Post-op diagnosis: same Findings: EGD: hiatal hernia - mild gastritis - negative other Colonoscopy: diverticulosis - internal hemorrhoids Procedure: EGHD/colonoscopy Anesthesia: MAC Surgeon: JOSE BAY Estimated blood loss: none Pathology: list Specimen disposition: to lab Condition: stable Disposition: floor
[2018-05-03] MEDS ORDERED: DILAUDID IV PRN (15:53)
[2018-05-03] MEDS ORDERED: DILAUDID ONE (15:59)
--- NOTE | 2018-05-03 16:19 | Operative Report ---
PROCEDURE: Esophagogastroduodenoscopy. INDICATIONS: 1. Anemia. 2. Possible GI bleed. MEDICATIONS: Propofol per [employer]ACHINE. COMPLICATIONS: None. DESCRIPTION OF PROCEDURE: The patient brought to procedure suite. The patient had the procedure discussed with her and family at length. All risks, complications, and benefits discussed, after which the patient signed for the procedure to be performed. The patient was placed in left lateral decubitus position. Mouth block was placed in the patient's oral cavity. After adequate sedation of medication as above, the endoscope was introduced into the mouth and brought to level of the second portion of duodenum. Retroflexion view performed. The patient's vital signs remained stable throughout the procedure. FINDINGS: There was noted to be a small to medium hiatal hernia at GE junction at 37 cm from the gums. Esophagus otherwise appeared to be normal. Mild gastritis noted in the stomach. Stomach otherwise appeared to be normal. Duodenum appeared to be normal. Retroflexion view performed in the stomach showed no other pathology other than noted above. The patient tolerated the procedure well. No complications during the procedure. IMPRESSION: 1. Hiatal hernia. 2. Mild gastritis. 3. Otherwise, normal EGD. RECOMMENDATIONS: 1. PPI daily. 2. Follow labs, transfuse as needed. 3. Colonoscopy, follow further recommendation based on colonoscopy results. JOB# [id number] CAB/NTS
--- NOTE | 2018-05-03 16:53 | Operative Report ---
PROCEDURE: Colonoscopy. INDICATION: 1. Anemia. 2. GI bleed. MEDICATIONS: Propofol per CONSULTING INTERN. COMPLICATIONS: None. DESCRIPTION OF PROCEDURE: The patient was brought to procedure suite. The patient had the procedure discussed with her at length. All risks, complications, and benefits discussed after which the patient signed for the procedure performed. The patient was placed in the left lateral decubitus position. Rectal exam performed prior to insertion of the scope. After adequate sedation medication as above, scope was inserted into the rectum and brought to the level of the cecum. Ileocecal valve and appendiceal orifice, cecal strap were adequately visualized. Colonoscope was then removed and mucosa of colon completely and adequately visualized. Prep quality for this procedure was fair. The patient's vital signs remained stable throughout the procedure. FINDINGS: There were no mass lesions or polyps noted during this procedure. There were few scattered diverticula, especially in the left colon. Retroflexion view performed in the rectum showed small internal hemorrhoids. The patient tolerated the procedure well. No complications during the procedure. IMPRESSION: 1. Diverticulosis. 2. Internal hemorrhoids. 3. Otherwise, normal colonoscopy. RECOMMENDATIONS: 1. High fiber diet. 2. Continue current medication. 3. Repeat colonoscopy in 5 years. 4. Given findings on endoscopy and colonoscopy, okay to start antiplatelet and other anticoagulation therapy. 5. We will sign off, call if needed. JOB# [id number] CAB/NTS
[2018-05-03] MEDS: ROCEPHIN/NS 2 GM/100 ML 2 GM/100 ML BAG IV SCH (20:15)
[2018-05-03] MEDS: DESYREL PO SCH (21:14)
[2018-05-04 05:42] LABS: Hematocrit 22.1 % (30.3-42.9); Hemoglobin 7.4 gm/dl (10.1-14.3)
[2018-05-04 06:03] LABS: BUN/Creatinine Ratio 28; Blood Urea Nitrogen 14 mg/dL (7-17); Calcium 8.6 mg/dL (8.4-10.2); Hemolysis Index 5
[2018-05-04] MEDS: NEURONTIN PO SCH ×3 (06:18→23:20)
[2018-05-04] MEDS: CALAN PO SCH ×3 (06:18→23:20)
[2018-05-04] MEDS: SODIUM CHLORIDE FLUSH SYRINGE 10 ML IV SCH ×2 (09:35→23:21)
[2018-05-04] MEDS: LIORESAL PO SCH ×2 (09:35→23:20)
[2018-05-04] MEDS: PROTONIX PO SCH (09:35)
--- NOTE | 2018-05-04 10:35 | Progress Note ---
Assessment and Plan Altered mental status -resolved UTI Severe anemia EGD: hiatal hernia, mild gastritis Colonoscopy: diverticulosis, internal hemorrhoids ok to resume antiplatelet/anti-coagulants per GI Acute renal failure Atrial fibrillation, permanent paroxysmal NSVT on telemetry on optimal rate control agents with verapamil. on eliquis discontinued due to severe anemia with a hemoglobin of 6.7 this admission. Echocardiogram 01/2018 reports a mildly decreased left ventricular systolic function, EF 40-45%. [facility] 02/2013: no significant CAD, EF 60-65%. MPI this admission - no ischemia Recommendations: Neurological workup is in process to determine if patient's presenting symptoms represented a TIA or completely attributable to the ongoing UTI. Continue rate controlling agents for permanent atrial fibrillation. Subjective Date of service: 05/04/18 Principal diagnosis: NSVT Interval history: Patient has no complaints. Afib with a well controlled ventricular rate on telemetry. Objective Vital Signs Temp Pulse Resp BP Pulse Ox 05/04/18 08:39 98.4 F 16 05/04/18 08:37 98.4 F 87 16 128/69 98 05/04/18 06:18 86 05/04/18 04:23 99.2 F 101 H 18 104/51 97 05/03/18 23:43 98.7 F 97 H 18 111/54 99 05/03/18 22:07 96 05/03/18 21:15 93 H 05/03/18 20:19 98.3 F 93 H 16 137/73 100 05/03/18 16:56 14 05/03/18 16:30 92 H 10 L 134/76 99 05/03/18 16:15 94 H 12 130/68 98 05/03/18 16:05 91 H 12 132/81 99 05/03/18 15:55 94 H 14 136/81 99 05/03/18 15:35 98.2 F 110 H 16 126/75 97 05/03/18 13:50 98.1 F 83 18 138/63 100 05/03/18 12:35 97.8 F 18 111/65 - Physical Examination General: No Apparent Distress HEENT: Positive: PERRL Neck: Positive: trachea midline Cardiac: Positive: irregularly irregular Lungs: Positive: Decreased Breath Sounds Neuro: Positive: Weakness - Labs and Meds CBC 05/04/18 Range/Units 05:29 Hgb 7.4 L (10.1-14.3) gm/dl Hct 22.1 L (30.3-42.9) % Comprehensive Metabolic Panel 05/04/18 Range/Units 05:29 Sodium 138 (137-145) mmol/L Potassium 4.1 (3.6-5.0) mmol/L Chloride 105.8 (98-107) mmol/L Carbon Dioxide 27 (22-30) mmol/L BUN 14 (7-17) mg/dL Creatinine 0.5 L (0.7-1.2) mg/dL Glucose 106 H (65-100) mg/dL Calcium 8.6 (8.4-10.2) mg/dL
--- NOTE | 2018-05-04 11:43 | Magnetic Resonance Report ---
MRI OF THE BRAIN WITHOUT CONTRAST: HISTORY: TIA PROCEDURE: Multiplanar, multisequence MR imaging of the brain without IV contrast was performed. FINDINGS: Mild chronic white matter changes are noted. The remaining brain parenchyma signal intensity and its patterson white interface are within normal limits on all sequences. No evidence for acute ischemia, hemorrhage or mass. No chronic infarct or extra-axial fluid collection. The midline structures are central. The basal cisterns are patent. Normal ventricular size. The orbital cavities and sella turcica demonstrate no abnormality. The visualized paranasal sinuses and mastoid air cells are well aerated. IMPRESSION: Mild nonspecific chronic white matter changes. No acute intracranial findings.
[2018-05-04] MEDS ORDERED: ATIVAN IV PRN (12:00)
--- NOTE | 2018-05-04 14:08 | Progress Note ---
Assessment and Plan Assessment and plan: Altered mental status/Acute metabolic encephalopathy - likely from Sepsis and LUIS ENRIQUE - CT head w/o any acute change, has chronic vascular changes - reviewed old CT/MRI/CTA head neck showed no sign of old CVA/infract - cont supportive care - urine was positive for amphetamine ? - pt and family denies any drug abuse - cardiology recommended neurology eval - consulted Dr Shaw, and she is following patient ordered MRI brain - MRI unremarkable, no stroke UTI with sepsis - increase white count, AMS, elevated creatinine - CT head w/o any acute change - urine cx grew Klebsiella Pneumoniae/Proteus Mirabilis, blood cx negative - treated with abx for a week, will stop abx today Acute Anemia, likely subcutaneous bleed - ordered stool for occult blood- pending - no active sign of bleeding, will also monitor H/h - hb dropped to 6.7, s/p one unit PRBC transfusion on 04/29 - no acute findings on CT abdomen/pelvis w/wo contrast, cont to hold eliquis - GI following - EGD/Colonoscopy 05/03 revealed mild gastritis,hiatal hernia,diverticulosis, int hemorrhoids Acute renal failure, vasomotor nephropathy - cont iv fluid, follow renal function, Cr improved Atrial fibrillation, chronic - paroxysmal NSVT on telemetry - on rate control agents with verapamil. s/p iv metoprolol - on hold eliquis for acute anemia - Echocardiogram 01/2018 reports a mildly decreased left ventricular systolic function, EF 40-45%. - [facility] 02/2013: no significant CAD, EF 60-65%. - negative stress test on this admission Physical debility, s/p PT eval , recommended SUSAN Abnormal UDS - urine was positive for amphetamine ? - pt and family denies any drug abuse -Likely dc tomorrow History Interval history: Patient is a 77 year old woman with a histroy of chronic atrial fibrillation, on rate control strategy and oral anticoagulation with Eliquis admitted at this time with altered mental status. her workup suggesting UTI and LUIS ENRIQUE. A recent echocardiogram demonstrated mild left ventricle dysfunction with ejection fraction 40-45%. A cardiac catheterization done in 2013, that documents normal coronary arteries. A cardiac consultation was requested for NSVT seen on telemetry. Developed anemia, transfused 1 unit PRBC. GI consulted for EGD/colonoscopy. Neuro consulted per cardiology recommendation to r/o TIA on admission. Feels better Had EGD/colonoscopy 05/03 Altered mental status Hospitalist Physical - Physical exam Narrative exam: GEN: Not in acute distress, lying in bed,morbidly obese HEENT: Normocephalic, atraumatic, Neck: supple, No JVD Lungs: Clear to auscultation bilat, no crackles, no wheeze Abd:soft, non tender, non distended, normal bowel sounds Ext: No edema, no clubbing, no cyanosis Neuro:Awake,alert, no focal signs Psych: normal mood - Constitutional Vitals: Temp Pulse Resp BP Pulse Ox 98.3 F 80 16 128/72 100 05/04/18 12:56 05/04/18 12:56 05/04/18 12:56 05/04/18 12:56 05/04/18 12:56 General appearance: Present: obese Results - Labs CBC & Chem 7: 05/04/18 05:29 05/04/18 05:29 Labs: Laboratory Last Values WBC 7.7 K/mm3 (4.5-11.0) 05/02/18 00:30 RBC 2.34 M/mm3 (3.65-5.03) L 05/02/18 00:30 Hgb 7.4 gm/dl (10.1-14.3) L 05/04/18 05:29 Hct 22.1 % (30.3-42.9) L 05/04/18 05:29 MCV 96 fl (79-97) 05/02/18 00:30 MCH 33 pg (28-32) H 05/02/18 00:30 MCHC 34 % (30-34) 05/02/18 00:30 RDW 16.9 % (13.2-15.2) H 05/02/18 00:30 Plt Count 177 K/mm3 (140-440) 05/02/18 00:30 Lymph % (Auto) 23.8 % (13.4-35.0) 04/30/18 05:42 [place] % (Auto) 7.4 % (0.0-7.3) H 04/30/18 05:42 Eos % (Auto) 2.2 % (0.0-4.3) 04/30/18 05:42 Baso % (Auto) 0.4 % (0.0-1.8) 04/30/18 05:42 Lymph # 1.4 K/mm3 (1.2-5.4) 04/30/18 05:42 [place] # 0.4 K/mm3 (0.0-0.8) 04/30/18 05:42 Eos # 0.1 K/mm3 (0.0-0.4) 04/30/18 05:42 Baso # 0.0 K/mm3 (0.0-0.1) 04/30/18 05:42 Seg Neutrophils % 66.2 % (40.0-70.0) 04/30/18 05:42 Seg Neutrophils # 3.9 K/mm3 (1.8-7.7) 04/30/18 05:42 PT 14.6 Sec. (12.2-14.9) 05/03/18 05:29 INR 1.07 (0.87-1.13) 05/03/18 05:29 APTT 35.3 Sec. (24.2-36.6) 04/25/18 09:45 Thrombin Time 19.6 Sec. (15.1-19.6) 04/25/18 09:45 Sodium 138 mmol/L (137-145) 05/04/18 05:29 Potassium 4.1 mmol/L (3.6-5.0) 05/04/18 05:29 Chloride 105.8 mmol/L (98-107) 05/04/18 05:29 Carbon Dioxide 27 mmol/L (22-30) 05/04/18 05:29 Anion Gap 9 mmol/L 05/04/18 05:29 BUN 14 mg/dL (7-17) 05/04/18 05:29 Creatinine 0.5 mg/dL (0.7-1.2) L 05/04/18 05:29 Estimated GFR > 60 ml/min 05/04/18 05:29 BUN/Creatinine Ratio 28 % 05/04/18 05:29 Glucose 106 mg/dL (65-100) H 05/04/18 05:29 POC Glucose 130 (70-105) H 04/25/18 09:55 Hemoglobin A1c 4.9 % (4-6) 04/26/18 05:37 Lactic Acid 1.60 mmol/L (0.7-2.0) 04/25/18 11:14 Calcium 8.6 mg/dL (8.4-10.2) 05/04/18 05:29 Magnesium 1.80 mg/dL (1.7-2.3) 04/26/18 13:08 Ammonia 40.0 umol/L (25-60) 04/25/18 11:14 Troponin T < 0.010 ng/mL (0.00-0.029) 04/27/18 06:15 TSH 1.610 mlU/mL (0.270-4.200) 04/26/18 15:10 Free T4 1.31 ng/dL (0.76-1.46) 04/26/18 15:10 Urine Color Yellow (Yellow) 04/25/18 10:20 Urine Turbidity Cloudy (Clear) 04/25/18 10:20 Urine pH 5.0 (5.0-7.0) 04/25/18 10:20 Ur Specific [place] 1.025 (1.003-1.030) 04/25/18 10:20 Urine Protein 100 mg/dl mg/dL (Negative) 04/25/18 10:20 Urine Glucose (UA) Neg mg/dL (Negative) 04/25/18 10:20 Urine Ketones Neg mg/dL (Negative) 04/25/18 10:20 Urine Blood Sm (Negative) 04/25/18 10:20 Urine Nitrite Neg (Negative) 04/25/18 10:20 Urine Bilirubin Neg (Negative) 04/25/18 10:20 Urine Urobilinogen 2.0 mg/dL (<2.0) 04/25/18 10:20 Ur Leukocyte Esterase Lg (Negative) 04/25/18 10:20 Urine WBC (Auto) > 182.0 /HPF (0.0-6.0) H 04/25/18 10:20 Urine RBC (Auto) 20.0 /HPF (0.0-6.0) 04/25/18 10:20 U Epithel Cells (Auto) 4.0 /HPF (0-13.0) 04/25/18 10:20 Urine Bacteria (Auto) 3+ /HPF (Negative) 04/25/18 10:20 Urine WBC Clumps 3+ /HPF 04/25/18 10:20 Urine Mucus Few /HPF 04/25/18 10:20 Urine Opiates Screen Presumptive negative 04/25/18 10:20 Urine Methadone Screen Presumptive negative 04/25/18 10:20 Acetaminophen < 5.0 ug/mL (10.0-30.0) L 04/25/18 09:45 Ur Barbiturates Screen Presumptive negative 04/25/18 10:20 Ur Phencyclidine Scrn Presumptive negative 04/25/18 10:20 Ur Amphetamines Screen Presumptive positive 04/25/18 10:20 U Benzodiazepines Scrn Presumptive negative 04/25/18 10:20 Urine Cocaine Screen Presumptive negative 04/25/18 10:20 U Marijuana (THC) Screen Presumptive negative 04/25/18 10:20 Drugs of Abuse Note Disclamer 04/25/18 10:20 Blood Type O POSITIVE 04/29/18 09:11 Antibody Screen Negative 04/29/18 09:11 Crossmatch See Detail 04/29/18 09:11 Nutrition/Malnutrition Assess - Dietary Evaluation Nutrition/Malnutrition Findings: Nutrition Notes Start: 05/02/18 14:17 Freq: Status: Active Protocol: Document 05/02/18 14:17 RM (Rec: 05/02/18 14:19 RM [id number]) Nutrition Notes Need for Assessment generated from: LOS Initial or Follow up Brief Note Current Diagnosis Acute Kidney Injury,Sepsis, Hypertension,Heart Failure, Hyperlipidemia Other Pertinent Diagnosis Depression,Anxiety disorder, UTI Current Diet Cardiac Labs/Tests Reviewed Pertinent Medications Reviewed Height 5 ft 5 in Weight 123.7 kg [place] Body Weight (kg) 56.81 BMI 45.3 Subjective/Other Information Screened for LOS. Pt stated that her appetite is okay and she eats most of her meals. Burn Absent Trauma Absent Nutrition Intervention Revisit per MD consult or patient Sign Off request:
[2018-05-04] MEDS ORDERED: ROCEPHIN/NS 2 GM/100 ML 2 GM/100 ML BAG IV SCH (20:00)
[2018-05-04] MEDS: ELIQUIS PO SCH (23:19)
[2018-05-04] MEDS: DESYREL PO SCH (23:20)
[2018-05-05 05:33] VITALS: BP 106/49
[2018-05-05] MEDS: NACL 0.9% 1000 ML 1,000 ML IV SCH (09:26)
[2018-05-05] MEDS: PROTONIX PO SCH (09:27)
[2018-05-05] MEDS: SODIUM CHLORIDE FLUSH SYRINGE 10 ML IV SCH (09:27)
[2018-05-05] MEDS: LIORESAL PO SCH (09:27)
[2018-05-05] MEDS: ELIQUIS PO SCH (09:27)
--- NOTE | 2018-05-05 11:10 | Progress Note ---
Assessment and Plan Altered mental status -resolved MRI of brain -no acute intracranial process. Head CT -no acute intracranial process. UTI Severe anemia EGD: hiatal hernia, mild gastritis Colonoscopy: diverticulosis, internal hemorrhoids ok to resume anti-coagulants per GI Acute renal failure Atrial fibrillation, permanent paroxysmal NSVT on telemetry on optimal rate control agents with verapamil. on eliquis restarted Echocardiogram 01/2018 reports a mildly decreased left ventricular systolic function, EF 40-45%. [facility] 02/2013: no significant CAD, EF 60-65%. MPI this admission - no ischemia Recommend: Monitor H&H closely. Continue Eliquis and rate controlling agents for permanent atrial fibrillation. Subjective Date of service: 05/05/18 Principal diagnosis: NSVT Interval history: Patient has no complaints. Afib with a well controlled ventricular rate on telemetry. Objective Vital Signs Temp Pulse Resp BP Pulse Ox 05/05/18 03:50 98.4 F 67 16 106/49 99 05/04/18 22:39 98.1 F 67 16 120/55 98 05/04/18 21:47 96 05/04/18 20:25 98.7 F 69 16 126/68 98 05/04/18 20:20 63 05/04/18 18:17 98.2 F 63 16 124/65 99 05/04/18 12:56 98.3 F 80 16 128/72 100 - Physical Examination General: No Apparent Distress HEENT: Positive: PERRL Neck: Positive: trachea midline Cardiac: Positive: irregularly irregular Lungs: Positive: Decreased Breath Sounds Neuro: Positive: Weakness
--- NOTE | 2018-05-05 12:44 | Discharge Summary ---
Providers - Providers Date of Admission: 04/25/18 12:17 Date of discharge: 05/05/18 Attending physician: IMTIAZ CHRISTINA 04/26/18 10:29 Consult to Physician [CONS] Routine Comment: Consulting Provider: MARCI VIZCAINO Physician Instructions: Reason For Exam: NSVT 04/28/18 07:22 Physical Therapy Evaluation and Treat [CONS] Routine Comment: Reason For Exam: placement 04/29/18 14:37 Consult to Physician [CONS] Routine Comment: Consulting Provider: NILAY OSORIO Physician Instructions: Reason For Exam: possible GI bleed 05/02/18 14:21 Consult to Physician [CONS] Routine Comment: Consulting Provider: ELIZABETH CROCKETT Physician Instructions: Reason For Exam: need to r/o possible TIA on admission per cardio Hospitalization Condition: Fair Hospital course: Patient is a 77 year old woman with a histroy of chronic atrial fibrillation,on Eliquis admitted for altered mental status. Her workup suggesting UTI and LUIS ENRIQUE. She was diagnosed with sepsis due to UTI. Toxic metabolic encephalopathy due to sepsis and LUIS ENRIQUE. A recent Echocardiogram demonstrated EF 40-45%. A cardiac consultation was requested for NSVT seen on telemetry. Developed anemia, t ransfused 1 unit PRBC. GI consulted for EGD/colonoscopy, and both done on 05/03/18. EGD showed hiatal hernia, mild gastritis. Colonoscopy showed diverticulosis, internal hemorrhoids. MRI Brain was unremarkable, no stroke. Patient was subsequently discharged to SNF on 05/05/18. Total time spent on discharge, 37 mins Disposition: [id number]/[id number] SNF [facility] - Discharge Diagnoses (1) Sepsis Status: Acute (2) Gastritis Status: Acute (3) Acute blood loss anemia Status: Acute (4) Diverticulosis Status: Acute (5) Atrial fibrillation Status: Acute Qualifiers: Atrial fibrillation type: persistent Qualified Code(s): I48.1 - Persistent atrial fibrillation (6) Dyslipidemia Status: Acute (7) Morbid obesity Status: Acute (8) Obesity hypoventilation syndrome Status: Acute (9) Hypertension Status: Chronic Comment: Stable Core Measure Documentation - Palliative Care Palliative Care/ Comfort Measures: Not Applicable - Core Measures Any of the following diagnoses?: none Exam - Constitutional Vitals: Temp Pulse Resp BP Pulse Ox 98.4 F 67 16 106/49 99 05/05/18 03:50 05/05/18 03:50 03/14/19 03:50 05/05/18 03:50 05/05/18 03:50 Plan Activity: advance as tolerated Diet: low fat, low cholesterol, low salt, other (GI soft, ) Additional Instructions: 1.Follow up with Physician at [facility] in 2-3 days. 2.Follow up with [facility] in 1 week. 3.Follow up with Dr. [facility] in 1 week Follow up with: CHRISTOPHER LAGUNAS [Other] - 3-5 Days Prescriptions: Apixaban [Eliquis] 5 mg PO Q12HR #60 tablet Gabapentin [Neurontin] 300 mg PO Q8HR #90 capsule Pantoprazole [Protonix] 40 mg PO QDAY #30 tablet
[2018-05-05] MEDS: NEURONTIN PO SCH (13:25)
[2018-05-05] MEDS: CALAN PO SCH (13:32)
== END 2018-05-05 19:30 | DRG 871 ==
LOC: ED 09:26 → 4A 12:17
PROVIDERS: ADMIT Internal Medicine; ATTEND Internal Medicine
PROC: 30233N1 Transfusion of Nonautologous Red Blood Cells into Peripheral Vein, Percutaneous Approach (ICD-10-PCS; principal; 2018-04-29)
PROC: 0DJ08ZZ Inspection of Upper Intestinal Tract, Via Natural or Artificial Opening Endoscopic (ICD-10-PCS; 2018-05-03)
PROC: 0DBN8ZX Excision of Sigmoid Colon, Via Natural or Artificial Opening Endoscopic, Diagnostic (ICD-10-PCS; 2018-05-03)
DX: A41.9 Sepsis, unspecified organism (principal); N17.0 Acute kidney failure with tubular necrosis; N39.0 Urinary tract infection, site not specified; Z68.42 Body mass index [BMI] 45.0-49.9, adult; I47.1 Supraventricular tachycardia; D62 Acute posthemorrhagic anemia; I48.1 Persistent atrial fibrillation; E66.2 Morbid (severe) obesity with alveolar hypoventilation; G93.40 Encephalopathy, unspecified; I11.0 Hypertensive heart disease with heart failure; I50.9 Heart failure, unspecified; M19.90 Unspecified osteoarthritis, unspecified site; F32.9 Major depressive disorder, single episode, unspecified; F41.1 Generalized anxiety disorder; J44.9 Chronic obstructive pulmonary disease, unspecified; D64.9 Anemia, unspecified; K29.70 Gastritis, unspecified, without bleeding; K44.9 Diaphragmatic hernia without obstruction or gangrene; K57.30 Diverticulosis of large intestine without perforation or abscess without bleeding; K64.8 Other hemorrhoids; Z79.899 Other long term (current) drug therapy; Z88.5 Allergy status to narcotic agent; Z86.73 Personal history of transient ischemic attack (TIA), and cerebral infarction without residual deficits; Z96.653 Presence of artificial knee joint, bilateral; Z79.01 Long term (current) use of anticoagulants
CPT/HCPCS: 36415; 70450; 70551; 74176; 74177; 78452; 80048; 80307; 80320; 81001; 82140; 82962; 83036; 83735; 84439; 84443; 84484; 85014; 85018; 85025; 85027; 85610; 85670; 85730; 86850; 86900; 86901; 86920; 87040; 87076; 87086; 87186; 88305; 88341; 88342; 93005; 93010; 93017; 94760; 96361; 96365; 96366; 96375; G0378; A9270-GY; A9502; C9113; G0480; J0696; J1170; J1956; J2250; J2405; J2704; J2785; J7030; J7040; J7042; P9016; Q9967

== ENCOUNTER 2018-06-30 08:38 | Outpatient (CLI) | payer MEDICARE ==
[2018-06-30] MEDS ORDERED: XYLOCAINE TOPICAL 4% TP ONE (09:00)
[2018-06-30] MEDS ORDERED: AD OINTMENT TP SCH (09:00)
== END 2018-06-30 08:39 | disposition home or self-care (01) ==
LOC: WOUND 08:38
PROVIDERS: ATTEND Surgery
DX: L89.312 Pressure ulcer of right buttock, stage 2 (principal); E66.9 Obesity, unspecified; M06.9 Rheumatoid arthritis, unspecified; Z96.653 Presence of artificial knee joint, bilateral
CPT/HCPCS: 11042; G0463; 99215